=== PATIENT | male | born 1965 | race Caucasian/White ===

== ENCOUNTER 2017-11-29 18:52 | Emergency (ER) | payer OTHER, SELFPAY ==
[2017-11-29 18:56] VITALS: BP 183/88; PULSE 74; RESP 18; TEMP 36.2; O2SAT 99; BMI 23.3
--- NOTE | 2017-11-29 20:52 | ED.ANIMALBIT ---
HPI - Animal Bite <XOCHITL Chase - Last Filed: 11/29/17 22:04> General Chief Complaint: Animal Bite Stated Complaint: NEEDS STITCHES Time Seen by Provider: 11/29/17 20:52 Source: patient Mode of arrival: ambulatory Limitations: no limitations History of Present Illness HPI narrative: [age] year old male history of CVA and is an everyday smoker here for complaint of laceration to his left inner thigh after his dog bit him in his thigh earlier today. He states that the images patient's on the dog are up-to-date. He does not know when his last tetanus was. He is ambulatory to the emergency room. He denies any other injuries or concerns. complaint: animal bite Related Data Previous Rx's Medication Instructions Recorded amoxicillin-pot clavulanate 1 tab PO BID #14 tab 11/29/17 Allergies Allergy/AdvReac Type Severity Reaction Status Date / Time INGREDIENT: NDA - NO KNOWN Allergy Unknown Uncoded 11/29/17 19:01 DRUG ALLERGIES Review of Systems <XOCHITL Chase - Last Filed: 11/29/17 22:04> Constitutional Denies chills, Denies fever(s), Denies lethargy and Denies weakness Eyes Denies change in vision, Denies eye discharge, Denies irritation and Denies loss of vision ENT Ears, Nose, Mouth, and Throat: Denies change in voice, Denies neck pain, Denies sore throat and Denies throat swelling Cardiovascular Denies chest pain, Denies irregular heart rhythm, Denies lightheadedness, Denies palpitations and Denies orthopnea Respiratory Denies wheezing Gastrointestinal Gastrointestinal: Denies abdominal pain, Denies change in bowel habits, Denies diarrhea, Denies nausea and Denies vomiting Genitourinary Denies hematuria, Denies flank pain, Denies urinary incontinence and Denies urinary urgency Musculoskeletal Denies neck pain Comments: Dog bite left inner thigh Integumentary/Breasts Denies pruritus, Denies erythema, Denies rash and Denies wounds Neurologic Denies loss of vision and Denies weakness Endocrine Denies palpitations Hematologic/Lymphatic Denies easy bruising Allergic/Immunologic Denies urticaria, Denies throat swelling and Denies wheezing Exam <XOCHITL Chase - Last Filed: 11/29/17 22:04> Initial Vital Signs Initial Vital Signs: Vital Signs Temperature 97.2 F L 11/29/17 18:56 Pulse Rate 74 11/29/17 18:56 Respiratory Rate 18 11/29/17 18:56 Blood Pressure 183/88 H 11/29/17 18:56 Pulse Oximetry 99 11/29/17 18:56 Const General: cooperative and well developed Nutritional Appearance: well nourished Orientation: alert, awake, oriented x3 and not confused [facility] Mouth: oral mucosae normal and moist mucous membranes Eyes Conjunctivae: conjunctivae normal Sclera: sclerae normal Pupils: PERRL EOM: EOM intact bilaterally Resp Effort & Inspection: normal respiratory effort, able to speak in complete sentences, no respiratory distress and no use of accessory muscles Auscultation: clear to auscultation bilaterally, no rales, no rhonchi and no wheezes Cardio Rate: regular rate Rhythm: regular rhythm Heart Sounds: no click, no gallops, no murmurs and no rubs Pulses: normal peripheral pulses Skin General: no rashes or lesions noted, No jaundice and No petechiae Neuro General: alert, oriented x3, gait normal and no focal motor deficits Speech: speech normal Extrem General: full ROM, no clubbing, cyanosis or edema, no pedal edema and no calf tenderness Other: 6 cm laceration to the medial left thigh. Bleeding is controlled deep tissues appear to be intact. No foreign bodies. Distal sensation is intact. Distal range of motion is intact. Distal pulses are intact. <Apollo Cornejo DO - Last Filed: 11/29/17 23:42> Initial Vital Signs Initial Vital Signs: Vital Signs Temperature 97.2 F L 11/29/17 18:56 Pulse Rate 74 11/29/17 18:56 Respiratory Rate 18 11/29/17 18:56 Blood Pressure 183/88 H 11/29/17 18:56 Pulse Oximetry 99 11/29/17 18:56 Procedures <XOCHITL Chase - Last Filed: 11/29/17 22:04> Laceration Repair Laceration 1: Site: lower extremity Side (If applicable): left Size (cm): 6 Description: linear Depth: simple, single layer Local Anesthetic: lidocaine 1% Amount of anesthesia used (mL): 5 Pre-repair: wound explored, irrigated extensively and deep structures intact Skin layer closed with: nylon Size (cm): 4-0 Number of sutures: 9 Technique: simple, interrupted Course <XOCHITL Chase - Last Filed: 11/29/17 22:04> Orders Ordered: Discontinued Medications Amoxicillin/Clavulanate Potassium (Augmentin 875-125 Mg) 1 tab PO NOW ONE Stop: 11/29/17 22:03 Last Admin: 11/29/17 22:13 Dose: 1 tab Diphtheria/Tetanus/Acell Pertussis (Adacel) 0.5 ml IM .ONCE ONE Stop: 11/29/17 22:21 Last Admin: 11/29/17 22:30 Dose: 0.5 ml Vital Signs - 8 hr 11/29/17 18:56 11/29/17 22:09 Temperature 97.2 F L Pulse Rate 74 71 Respiratory Rate 18 17 Blood Pressure 183/88 H Blood Pressure [Left Arm] 153/78 H Pulse Oximetry 99 96 <Apollo Cornejo DO - Last Filed: 11/29/17 23:42> Orders Ordered: Discontinued Medications Amoxicillin/Clavulanate Potassium (Augmentin 875-125 Mg) 1 tab PO NOW ONE Stop: 11/29/17 22:03 Last Admin: 11/29/17 22:13 Dose: 1 tab Diphtheria/Tetanus/Acell Pertussis (Adacel) 0.5 ml IM .ONCE ONE Stop: 11/29/17 22:21 Last Admin: 11/29/17 22:30 Dose: 0.5 ml Vital Signs - 8 hr 11/29/17 18:56 11/29/17 22:09 Temperature 97.2 F L Pulse Rate 74 71 Respiratory Rate 18 17 Blood Pressure 183/88 H Blood Pressure [Left Arm] 153/78 H Pulse Oximetry 99 96 MDM - Animal Bite <XOCHITL Chase - Last Filed: 11/29/17 22:04> MDM Narrative Medical decision making narrative: Laceration to left inner thigh was closed with 9 4-0 nylon simple interrupted sutures. Good wound closure was obtained. Wound dressed with bacitracin and dressing. He is placed on prophylactic Augmentin. [id number] Tylenol or Motrin as needed for any discomfort. Sutures to be removed in 10 days. Tetanus was updated in the emergency room. For any worsening symptoms return emergency room. Discharge Plan Departure Patient Disposition: Home Clinical Impression: Dog bite Discharge Date/Time: 11/29/17 22:40 Interventions: ED Discharge Assessment Last Done: 11/29/17 22:37 Instructions: DI for Dog Bite Activity Restrictions/Additional Instructions: Dog bite sites laceration to left inner thigh was closed with 9 sutures. Sutures need to be removed in 10 days. UR placed on antibiotic prevent infection called Augmentin use as directed. Use [id number] Tylenol or Motrin as needed for any discomfort. Follow up with her primary care provider. Keep wound area clean and dry and dressing intact for 24 hr. After this timeframe you may remove the dressing. After 24 hr you may shower briefly dry wound right after shower redressed with bacitracin dressing. Dress wound daily with bacitracin and dressing until he wound heals.. For any worsening symptoms return to the emergency room. Prescriptions: New amoxicillin-pot clavulanate 875-125 mg tablet 1 tab PO BID Qty: 14 RF: 0 Referrals: [facility] [Provider Group] <Apollo Cornejo DO - Last Filed: 11/29/17 23:42> Cosign ED Attending Ghazala Attestation: I was available for consultation during this patient's emergency department encounter
[2017-11-29 22:09] VITALS: BP 153/78; PULSE 71; RESP 17; O2SAT 96
[2017-11-29] MEDS: AMOXICILLIN/CLAV 875/125 MG 1 TAB PO (22:13)
[2017-11-29] MEDS: TET,DIPH,PERTUSS(ACELL),VAC/PF 0.5 ML SYRINGE IM (22:30)
== END 2017-11-29 22:40 | disposition home or self-care (01) ==
PROVIDERS: Emergency Provider Nurse Practitioner Family
DX: S71.152A Open bite, left thigh, initial encounter (principal); W54.0XXA Bitten by dog, initial encounter
CPT/HCPCS: 12002; 90471; 99283; 90715

== ENCOUNTER 2018-12-29 10:13 | Emergency (ER) | payer OTHER, SELFPAY ==
[2018-12-29] VITALS (10 sets, daily range): BP systolic 142–171; BP diastolic 72–92; PULSE 65–78; RESP 15–19; TEMP 37.5; O2SAT 96–100
--- NOTE | 2018-12-29 | DI.CT.S_ITS ---
PROCEDURE: CT HEAD/BRAIN WO CON INDICATIONS: CODE STROKE TECHNIQUE: Noncontrast 4.5 mm thick angled axial sections acquired from the foramen magnum to the vertex, with coronal and sagittal reformats. For radiation dose reduction, the following was used: automated exposure control, adjustment of mA and/or kV according to patient size. COMPARISON: MRI brain 04/16/2016, head CT 03/01/2004. FINDINGS: Image quality: Excellent. CSF spaces: Basal cisterns are patent. No extra-axial fluid collections. Ventricles are normal in size and shape. Brain: Large area of encephalomalacia involving the right frontoparietal lobes which overall appears similar to the MRI from March 2016. This infarct was present in 2004. No new area of hypodensity and a vascular distribution to suggest acute infarction. No midline shift. No intracranial masses or hemorrhage. Mild periventricular hypodensity consistent with chronic microvascular ischemic change. Intracranial atherosclerotic calcifications in the distal ICA and right vertebral artery. Skull and face: Calvarium and visualized facial bones are intact, without suspicious lesions. Sinuses: Moderate chronic mucosal thickening in the right maxillary sinus, (3/4). Paranasal sinuses and mastoid air cells are otherwise clear. IMPRESSION: 1. No acute intracranial abnormality demonstrated. 2. Large area of encephalomalacia the right frontoparietal lobes due to remote infarct. 3. Chronic microvascular ischemic change. Comment: Findings were discussed with Heather Hare at the time of dictation. Dictated by: Zhen Coppola M.D. on 12/29/2018 at 10:33 Approved by: Zhen Coppola M.D. on 12/29/2018 at 10:41
--- NOTE | 2018-12-29 11:16 | ED.NEUROSD ---
HPI - Neuro Symptoms/Deficit General Chief Complaint: Neuro Symptoms/Deficit Stated Complaint: TIA Time Seen by Provider: 12/29/18 10:29 Source: patient and family Mode of arrival: Ambulatory Limitations: no limitations History of Present Illness HPI Narrative: Patient comes emergency department complaining of stroke-like symptoms today. He states he was out feeding his chickens around 830 this morning, when he began to have trouble getting his words out. Patient states he felt lightheaded around the same time. Patient's states that the patient also appeared to have a right facial droop. The patient states the symptoms lasted at maximum for several minutes and then began to get better. The patient's family states they still do not think he is completely back to his normal self. Patient states he does not feel as though he has any deficits at this time. He has a history of a large CVA in 2002 and carotid artery stenting in 2003. He was seen at [facility] for this. Patient states that he has had couple of ?mini strokes? since, but has not had a carotid ultrasound or echocardiogram done since his initial stroke. Patient does continue to smoke cigarettes. He does not currently take aspirin or any other anti-platelet or anticoagulant agent. Patient denies being ill with anything recently. He states he woke up feeling just fine this morning. No other complaints at this time. On Anticoagulants: No Related Data Home Medications Medication Instructions Recorded Confirmed atorvastatin 20 mg PO DAILY 12/29/18 12/29/18 citalopram [Celexa] 20 mg PO DAILY 12/29/18 12/29/18 hydrochlorothiazide 25 mg PO DAILY 12/29/18 12/29/18 lamotrigine 200 mg PO BID 12/29/18 12/29/18 Allergies Allergy/AdvReac Type Severity Reaction Status Date / Time INGREDIENT: NDA - NO KNOWN Allergy Unknown Uncoded 11/29/17 19:01 DRUG ALLERGIES Review of Systems Constitutional Constitutional: Denies chills, Denies fatigue, Denies fever(s), Denies frequent falls, Denies lethargy and Reports weakness (Right face this morning) Eyes Eyes: Denies change in vision, Denies eye discharge, Denies irritation and Denies loss of vision ENT Ears, Nose, Mouth, and Throat: Denies change in voice, Denies dizziness, Denies neck pain, Denies sore throat and Denies throat swelling Cardiovascular Cardiovascular: Denies chest pain, Denies irregular heart rhythm, Denies lightheadedness, Denies palpitations, Denies dyspnea, Denies dyspnea on exertion and Denies orthopnea Respiratory Respiratory: Denies cough, Denies dyspnea, Denies dyspnea on exertion and Denies wheezing Gastrointestinal Gastrointestinal: Denies abdominal pain, Denies change in bowel habits, Denies diarrhea, Denies nausea and Denies vomiting Genitourinary Genitourinary: Denies hematuria, Denies flank pain, Denies urinary incontinence and Denies urinary urgency Musculoskeletal Musculoskeletal: Denies back pain, Denies muscle weakness, Denies neck pain, Reports numbness (Chronic, left-sided) and Denies tingling Integumentary/Breasts Skin/Breast: Denies pruritus, Denies erythema, Denies rash and Denies wounds Neurologic Neurologic: Denies behavioral changes, Denies confusion, Denies dizziness, Denies frequent falls, Denies loss of vision, Reports numbness (Chronic, left-sided), Denies tingling and Reports weakness (Right face this morning) Comments: Aphasia Psychiatric Psychiatric: Denies anxiety, Denies behavioral changes, Denies confusion, Denies depression, Denies homicidal ideation and Denies suicidal ideation Endocrine Endocrine: Denies fatigue, Denies flushing and Denies palpitations Hematologic/Lymphatic Hematologic/Lymphatic: Denies easy bruising Allergic/Immunologic Allergic/Immunologic: Denies urticaria, Denies throat swelling and Denies wheezing Patient History Medical History HTN (hypertension) (Acute) Hyperlipidemia (Acute) Social History Smoking Status: Current every day smoker alcohol intake frequency: 3 or more drinks per day Alcohol type: beer and hard liquor Substance Use Type: does not use Exam Initial Vital Signs Initial Vital Signs: Vital Signs Temperature 99.5 F 12/29/18 10:25 Pulse Rate 73 12/29/18 10:25 Respiratory Rate 18 12/29/18 10:25 Blood Pressure 161/81 H 12/29/18 10:25 Pulse Oximetry 100 12/29/18 10:25 Const General: cooperative and well developed Nutritional Appearance: well nourished Orientation: alert, awake, oriented x3 and not confused HENHI Head: normocephalic and atraumatic Ears: external ears normal Nose: external nose normal and No nasal discharge Face and sinus: face symmetric and No dry mucous membranes Mouth: oral mucosae normal and moist mucous membranes Teeth and gingiva: dentition normal Eyes General: appearance normal, both eyes and all related structures Eyelids: eyelids normal Conjunctivae: conjunctivae normal Sclera: sclerae normal Pupils: PERRL EOM: EOM intact bilaterally Neck Neck: normal visual inspection, trachea midline, No lymphadenopathy, No midline deformity and No JVD Lymphatic: No lymphedema Chest Chest: normal inspection of the chest Resp Effort & Inspection: normal respiratory effort, able to speak in complete sentences, no respiratory distress and no use of accessory muscles Auscultation: clear to auscultation bilaterally, no rales, no rhonchi and no wheezes Cardio Rate: regular rate Rhythm: regular rhythm Heart Sounds: no click, no gallops, no murmurs and no rubs Pulses: normal peripheral pulses GI Inspection: non-distended Palpation: soft, no hepatosplenomegaly, No guarding, No pulsatile mass and No tender Auscultation: normal bowel sounds Back/Spine/Pelvis Back: No CVA tenderness Cervical Spine: cervical ROM normal and No pain with cervical ROM Thoracic/Lumbar Spine: thoracic and lumbar spine normal to inspection Skin General: no rashes or lesions noted, No jaundice and No petechiae Neuro General: alert, awake, oriented x3 and no focal motor deficits Cranial Nerves: CN's II-XI intact bilaterally Cognition: normal cognition Speech: speech normal Motor: muscle tone normal throughout and strength 5/5 throughout Other: Patient has an NIH stroke scale total score of 2 for his chronic left-sided numbness which is unchanged. Remainder stroke scale is negative. Extrem General: full ROM, no clubbing, cyanosis or edema, no pedal edema and no calf tenderness Psych Appearance: well kempt Mental Status: mental status grossly normal Attitude: cooperative Thought Content: normal and suicidality Judgment: judgment good Course Course Course Narrative: Patient was worked up as a code stroke upon arrival with a CT scan of the head, which was found to unremarkable for new findings. Laboratory studies were also obtained, and unremarkable, as well. I did feel, given the patient's significant risk factors for cardiovascular disease, that he should have a carotid Doppler and echocardiogram performed in the emergency department. Both were ordered, and that carotid Doppler did show a pedunculated thrombus within the left internal carotid artery that was moving with the blood pulsations, but otherwise, was occlusive. I did speak with Dr. Fallon of Neurology at [facility], and he did feel the patient should be transferred to their care. He recommended heparin drip and requested a CTA of the head and neck. CTA did not demonstrate significant further information. Patient was started on the heparin drip. I discussed with the patient and his family the findings and the need for transfer, and they were agreeable. I spoke with Dr. Wallace, the hospitalist at [facility] and she did accept the patient transfer. Orders Ordered: Discontinued Medications Aspirin (Aspirin Chew) 324 mg PO NOW ONE Stop: 12/29/18 11:32 Last Admin: 12/29/18 11:43 Dose: 324 mg Documented by: OLIVEIR Heparin Sodium (Porcine) (Heparin) 5,000 unit IV NOW ONE Stop: 12/29/18 13:25 Last Admin: 12/29/18 13:52 Dose: 5,000 unit Documented by: OLIVIER Heparin Sodium/Dextrose (Heparin Drip) 25,000 unit in 500 mls @ 14.496 mls/hr IV CONT IVAN; Protocol Last Admin: 12/29/18 13:55 Dose: 12 units/kg/hr, 14.496 mls/hr Documented by: OLIVIER Lorazepam (Ativan) 1 mg IV NOW ONE Stop: 12/29/18 13:47 Last Admin: 12/29/18 13:55 Dose: 1 mg Documented by: OLIVIER Lorazepam (Ativan) 1 mg IV NOW ONE Stop: 12/29/18 14:17 Last Admin: 12/29/18 14:22 Dose: 1 mg Documented by: LAURAANCE Vital Signs Vital signs: Vital Signs - 8 hr 12/29/18 10:25 12/29/18 10:39 Temperature 99.5 F Pulse Rate 73 70 Respiratory Rate 18 18 Blood Pressure 161/81 H Blood Pressure [Left Arm] 148/80 H Pulse Oximetry 100 100 MDM - Neuro Symptoms/Deficit Medical Records Attestation: I reviewed the patient's medical records. Lab Data Attestation: I reviewed the patient's lab results. Result diagrams: 12/29/18 10:30 12/29/18 10:30 Labs: Lab Results 12/29/18 12/29/18 12/29/18 Range/Units 10:30 10:30 10:30 WBC 8.4 (4.5-11.0) X10^3/uL RBC 4.33 L (4.5-5.9) X10^6/uL Hgb 15.0 (13.5-17.5) g/dL Hct 43.1 (41-53) % MCV 99.7 (80-100) fL MCH 34.7 H (26-34) PG MCHC 34.8 (30-36) % RDW 14.1 (11.6-14.8) % Plt Count 366 (150-400) X10^3/uL Neut % (Auto) 78.7 H (50-75) % Lymph % (Auto) 12.3 L (25-40) % Canadian % (Auto) 6.2 (3-14) % Eos % (Auto) 2.0 (2-4) % Baso % (Auto) 0.8 (0-2) % Neut # (Auto) 6600 (3689-3515) /uL Lymph # (Auto) 1000 L (0647-9220) /uL Canadian # (Auto) 500 (0-900) /uL Eos # (Auto) 200 (0-450) /uL Baso # (Auto) 100 (0-100) /uL PT 11.3 (10.1-12.7) SECONDS INR 1.0 (0.9-1.3) Sodium 134 L (137-145) mmol/L Potassium 4.0 (3.4-5.1) mmol/L Chloride 94 L (98-107) mmol/L Carbon Dioxide 31 (22-32) mmol/L BUN 10 (9-20) mg/dL Creatinine 0.80 (0.66-1.25) mg/dL Estimated GFR > 60.0 (>60) mL/min BUN/Creatinine Ratio 12.5 (6-22) Glucose 123 H (70-100) mg/dL Calcium 9.8 (8.4-10.2) mg/dL Total Bilirubin 0.5 (0.2-1.3) mg/dL AST 50 (17-59) IU/L ALT 25 (<50) IU/L Alkaline Phosphatase 78 (38-126) U/L Total Creatine Kinase 69 (55-170) U/L CK-MB (CK-2) TNP CK-MB (CK-2) Rel Index TNP Troponin I < 0.012 (0.01-0.034) ng/mL Total Protein 7.3 (6.3-8.2) g/dL Albumin 4.7 (3.5-5.0) g/dL Globulin 2.6 (1.7-4.1) g/dL Albumin/Globulin Ratio 1.8 (1.0-2.8) Point of Care Testing Glucose POC [address] scan - head: Radiologist's impression: PROCEDURE: CT HEAD/BRAIN WO CON INDICATIONS: CODE STROKE TECHNIQUE: Noncontrast 4.5 mm thick angled axial sections acquired from the foramen magnum to the vertex, with coronal and sagittal reformats. For radiation dose reduction, the following was used: automated exposure control, adjustment of mA and/or kV according to patient size. COMPARISON: MRI brain 04/16/2016, head CT 03/01/2004. FINDINGS: Image quality: Excellent. CSF spaces: Basal cisterns are patent. No extra-axial fluid collections. Ventricles are normal in size and shape. Brain: Large area of encephalomalacia involving the right frontoparietal lobes which overall appears similar to the MRI from March 2016. This infarct was present in 2004. No new area of hypodensity and a vascular distribution to suggest acute infarction. No midline shift. No intracranial masses or hemorrhage. Mild periventricular hypodensity consistent with chronic microvascular ischemic change. Intracranial atherosclerotic calcifications in the distal ICA and right vertebral artery. Skull and face: Calvarium and visualized facial bones are intact, without suspicious lesions. Sinuses: Moderate chronic mucosal thickening in the right maxillary sinus, (3/4). Paranasal sinuses and mastoid air cells are otherwise clear. IMPRESSION: 1. No acute intracranial abnormality demonstrated. 2. Large area of encephalomalacia the right frontoparietal lobes due to remote infarct. 3. Chronic microvascular ischemic change. Comment: Findings were discussed with Heather Hare at the time of dictation. Dictated by: Zhen Coppola M.D. on 12/29/2018 at 10:33 Approved by: Zhen Coppola M.D. on 12/29/2018 at 10:41 Carotid Doppler ultrasound: Radiologist's impression: [address] [address] Ultrasound Report Signed Patient: Leila Farmer#: [id number] : 1965Acct:[id number] Age/Sex: 53 / MDate of Service: 12/29/18 Loc: ED Accession Number: [id number] Procedure: US carotid doppler BI Ordering Provider: Sandra Hare MD PROCEDURE: US CAROTID DOPPLER BI INDICATIONS: STROKE SYMPTOMS TECHNIQUE: Color and pulse Doppler interrogation was performed of both carotid systems, with image documentation and velocity measurements. COMPARISON: [facility], CT, CT HEAD/BRAIN WO CON, 12/29/2018, 10:18. FINDINGS: Stenosis calculations are based on SRU (Society of Radiologists in Ultrasound) criteria. Right side: Brachial blood pressure: Not measured Common carotid artery peak systolic velocity: 74 cm/sec. Internal carotid artery peak systolic velocity: 163 cm/sec. Internal carotid artery end diastolic velocity: 46 cm/sec. External carotid artery peak systolic velocity: 279 cm/sec. ICA/CCA peak systolic ratio: 2.2. Mancuso scale imaging description: There is echogenic plaque present in the carotid bulb/proximal right internal carotid region which results in a stenosis of between 50 and 69% Percent internal carotid artery stenosis: Moderate, 50-69% stenosis. Vertebral artery: Flow direction is antegrade. Left side: Brachial blood pressure: 143/119 mm Hg. Common carotid artery peak systolic velocity: 108 cm/sec. Internal carotid artery peak systolic velocity: Zero Internal carotid artery end diastolic velocity: Zero External carotid artery peak systolic velocity: 205 cm/sec. ICA/CCA peak systolic ratio: Zero. Mancuso scale imaging description: There is acute thrombosis of the proximal internal carotid artery with mobile clot present within it. There is no flow distal to the proximal clot. Percent internal carotid artery stenosis: 100%. Vertebral artery: Flow direction is antegrade. IMPRESSION: 1. 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 2. 50-69% stenosis of the proximal right internal carotid artery. Comment: Findings were discussed with Dr. Hare on 12/29/18 1228 hrs. Additional comment: Of note, the patient has a large (contralateral) chronic right MCA distribution infarct. Dictated by: Anup Child M.D. on 12/29/2018 at 12:27 Approved by: Anup Child M.D. on 12/29/2018 at 12:47 Echo: Radiologist's impression: [facility]---------+ [facility] +---------+ : : [address] : : : : [place], [place] : : : : [id number] : : : : Phone: [phone] Echocardiogram Report + + :Name: LEILA FARMER Study Date: 12/29/2018 Height: 66 in : :[facility] Exam Location: IS Weight: 133 lb : : Gender: Male BSA: 1.7 m2 : :: 1965 Age: 53 yrs BP: 150/72 mmHg: :Reason For Study: Stroke : :Ordering Physician: Brandon : :Darnellist Performed By: Vandana Page : :Referring: SANDRA HARE : + + Interpretation Summary The ejection fraction is estimated to be 60-65%. The left atrium is severely dilated. Injection of contrast documented no interatrial shunt. There is no significant valvular heart disease. Procedure: A two-dimensional transthoracic echocardiogram with color flow and Doppler was performed. The study quality was technically adequate. There is no prior echocardiogram noted for this patient. A saline contrast injection was performed to assess for cardiac shunting. The patient was in normal sinus rhythm during the exam. Left Ventricle: The left ventricle is normal in size, wall thickness, and systolic function without any focal wall motion abnormalities. The ejection fraction is estimated to be 60-65%. Left ventricular wall motion is normal. Right Ventricle: The right ventricle is normal in size and function. Atria: The left atrium is severely dilated. The right atrium is mildly dilated. Injection of contrast documented no interatrial shunt. There is no Doppler evidence for an interatrial shunt. Mitral Valve: The mitral valve is normal in structure and function. There is mild mitral annular calcification. There is trace mitral regurgitation. Aortic Valve: The aortic valve is not well visualized. The aortic valve opens well. No aortic regurgitation is present. Tricuspid Valve: The tricuspid valve is normal in structure and function. There is a trace or physiologic amount of tricuspid regurgitation. Pulmonary artery pressures cannot be estimated because of the lack of a measurable TR jet velocity. Pulmonic Valve: The pulmonic valve is not well visualized. There is trace pulmonic regurgitation. Great Vessels: The aortic root is normal size. The ascending aorta is normal in size. The pulmonary is not well visualized. The IVC is of normal diameter and collapses greater than 50% with a sniff. This suggests a low right atrial pressure of 3 mm Hg. Pericardium/ Pleura There is no pericardial effusion. There is no pleural effusion. MMode/2D Measurements & Calculations LVIDd: 4.9 cm LVOT diam: 2.0 cm LVIDs: 2.9 cm Ao root diam: 2.9 cm FS: 41.9 % asc Aorta Diam: 3.1 cm EPSS: 0.23 cm IVSd: 0.83 cm LVPWd: 0.84 cm LV wilcox. diameter/BSA (cm/m^2): 2.9 LV sys. diameter/BSA (cm/m^2): 1.7 LA A2 area: 23.0 cm2 RA long axis: 5.4 cm LA A4 area: 23.6 cm2 RA area: 19.4 cm2 LA length (vol): 5.7 cm RA vol: 59.0 ml LA vol: 80.8 ml RA : 35.1 ml/m2 LA vol index: 48.1 ml/m2 IVC diam: 1.9 cm RVD1 (basal): 3.8 cm RVD2 (mid): 3.0 cm Doppler Measurements & Calculations Ao V2 max: 152.2 cm/sec LVOT Max Michael: 89.2 cm/sec Ao V2 mean: 96.4 cm/sec LV V1 max P.2 mmHg Ao max P.3 mmHg LV V1 VTI: 18.7 cm Ao mean P.3 mmHg LESLIE(I,D): 2.0 cm2 Ao V2 VTI: 29.4 cm LESLIE(V,D): 1.8 cm2 sev ratio: 0.63 LESLIE indexed to BSA (cm^2/m^2): 1.2 MV E max michael: 105.7 cm/sec PA V2 max: 90.3 cm/sec MV A max michael: 94.6 cm/sec PA V2 mean: 59.0 cm/sec MV E/A: 1.1 PA mean P.6 mmHg Med Peak E' Michael: 10.6 cm/sec PA Accel Time: 0.13 sec E/E' med: 9.9 Lat Peak E' Michael: 12.9 cm/sec E/E' lat: 8.2 E/e' average: 9.1 MV dec time: 0.24 sec MV P1/2t: 68.8 msec MV P1/2t max michael: 106.8 cm/sec SV(LVOT): 58.4 ml MVA(P1/2t): 3.2 cm2 Reading Physician:02:01 PM CTA head and neck: Radiologist's impression: PROCEDURE: CT ANGIO HEAD AND NECK INDICATIONS: possible new stroke TECHNIQUE: Pre-contrast 4.5 mm thick sections acquired from the foramen magnum to the vertex. After the administration of intravenous contrast, 1 mm thick sections acquired from the aortic arch through the [place] of [place]. Post-contrast 4.5 mm thick sections then re-acquired from the foramen magnum to the vertex. 3-dimensional [id number]-[id number]-oezaxvjedp (MIP) and/or volume rendering reformats were acquired of the central intracranial vasculature and neck separately. COMPARISON: None. FINDINGS: Image quality: Excellent. BRAIN: CSF spaces: There is mild exvacuo dilatation of the right lateral ventricle. Ventricles are midline. Basal cisterns are patent. No extra-axial fluid collections. Brain: No midline shift. No intracranial bleeds or masses. The large chronic right MCA distribution stroke with large right MCA distribution encephalomalacia involving the right frontal region and parietal region, sparing Skull and face: Calvarium and facial bones appear intact, without suspicious lesions. Orbits appear normal. Sinuses: Sinuses and mastoids are clear. HEAD CT ANGIOGRAPHY: Anterior circulation: Intracranial internal carotid arteries are normal in size and flow the left internal carotid artery is occluded below its petrous portion, with retrograde flow into the petrous portion. The anterior communicating artery is patent. The bilateral anterior cerebral arteries and middle cerebral arteries are patent. No focal filling defect or occlusion. The flow within the middle cerebral arteries is normal and symmetric. The anterior communicating artery is seen. No aneurysms are seen. Posterior circulation: The left vertebral artery is diminutive and ends in PICA. The right vertebral artery and basilar artery are of normal caliber. The posterior cerebral arteries are unremarkable. No filling defects or aneurysms. NECK CT ANGIOGRAPHY: Carotid system: The great vessels demonstrate a conventional anatomy as they arise from the aortic arch. There is occlusion of the left internal carotid artery at its origin. The left internal carotid artery is nonopacified from the origin to the petrous segment. It is patent above the skull base. There is extensive calcification of the carotid bulb region on the right with a stenosis of approximately 70% at the bulb/proximal internal carotid artery. Posterior circulation: The left vertebral artery is diffusely diminutive. The right vertebral artery is normal caliber. The left vertebral artery ends in PICA.. Soft tissues: Visualized neck soft tissues demonstrate no suspicious abnormalities. Bones: No suspicious bony lesions. Visualized cervical spine appears normally aligned. IMPRESSION: 1. No acute stroke, hemorrhage, or mass noted. 2. Large chronic right MCA distribution infarct. 3. 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 4. Severe calcified stenosis of the right carotid bulb/proximal internal carotid artery measuring approximately 70%. 5. Diminutive left vertebral artery ending in PICA. 6. No intracranial embolus identified. Comment: Findings were discussed with Dr. Hare on 12/29/18 at 1403 hrs. Any quantitative measurements of stenosis were performed using NASCET criteria. Dictated by: Anup Child M.D. on 12/29/2018 at 13:47 Approved by: Anup Child M.D. on 12/29/2018 at 14:13 ECG Data Attestation: I personally reviewed and interpreted this ECG as follows: (See below) Interpretation: Twelve lead EKG performed December 29, 2018 at 10:30 a.m., follows: Irregular ventricular rhythm with a rate of 70 beats per minute GA interval 164 millisecond QRS duration 90 millisecond QTC interval [address] T wave changes No ectopy Interpretation: Normal sinus rhythm; voltage criteria for LVH; no signs of acute ischemia; abnormal EKG as interpreted by 80 mg. Discharge Plan Departure Patient Disposition: [facility] Clinical Impression: Carotid art occ w/o infarc Discharge Date/Time: 12/29/18 15:09 Prescriptions: No Action atorvastatin 20 mg tablet 20 mg PO DAILY RF: 0 lamotrigine 200 mg Tablet 200 mg PO BID RF: 0 citalopram [Celexa] 20 mg tablet 20 mg PO DAILY RF: 0 hydrochlorothiazide 25 mg tablet 25 mg PO DAILY RF: 0
--- NOTE | 2018-12-29 11:25 | PC.NURSE ---
patients symptoms fully resolved and NIHSS = 0 Patient back to baseline Patient has old deficit of parasthesis to left arm and left leg from an old stroke in 2002. Has full strength though in both extremities. Drops things more due to the numbness.
--- NOTE | 2018-12-29 11:28 | DI.US.S_ITS ---
PROCEDURE: US CAROTID DOPPLER BI INDICATIONS: STROKE SYMPTOMS TECHNIQUE: Color and pulse Doppler interrogation was performed of both carotid systems, with image documentation and velocity measurements. COMPARISON: [facility], CT, CT HEAD/BRAIN WO CON, 12/29/2018, 10:18. FINDINGS: Stenosis calculations are based on SRU (Society of Radiologists in Ultrasound) criteria. Right side: Brachial blood pressure: Not measured Common carotid artery peak systolic velocity: 74 cm/sec. Internal carotid artery peak systolic velocity: 163 cm/sec. Internal carotid artery end diastolic velocity: 46 cm/sec. External carotid artery peak systolic velocity: 279 cm/sec. ICA/CCA peak systolic ratio: 2.2. Mancuso scale imaging description: There is echogenic plaque present in the carotid bulb/proximal right internal carotid region which results in a stenosis of between 50 and 69% Percent internal carotid artery stenosis: Moderate, 50-69% stenosis. Vertebral artery: Flow direction is antegrade. Left side: Brachial blood pressure: 143/119 mm Hg. Common carotid artery peak systolic velocity: 108 cm/sec. Internal carotid artery peak systolic velocity: Zero Internal carotid artery end diastolic velocity: Zero External carotid artery peak systolic velocity: 205 cm/sec. ICA/CCA peak systolic ratio: Zero. Mancuso scale imaging description: There is acute thrombosis of the proximal internal carotid artery with mobile clot present within it. There is no flow distal to the proximal clot. Percent internal carotid artery stenosis: 100%. Vertebral artery: Flow direction is antegrade. IMPRESSION: 1. 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 2. 50-69% stenosis of the proximal right internal carotid artery. Comment: Findings were discussed with Dr. Hare on 12/29/18 1228 hrs. Additional comment: Of note, the patient has a large (contralateral) chronic right MCA distribution infarct. Dictated by: Anup Child M.D. on 12/29/2018 at 12:27 Approved by: Anup Child M.D. on 12/29/2018 at 12:47
--- NOTE | 2018-12-29 11:31 | DI.ECHO.S_ITS ---
[facility]---------+ [facility] +---------+ : : [address] : : [place], [place] : : : : [id number] : : : : Phone: [phone] Echocardiogram Report + + :Name: LEILA FARMER Study Date: 12/29/2018 Height: 66 in : :[facility] Exam Location: IS Weight: 133 lb : : Gender: Male BSA: 1.7 m2 : :: 1965 Age: 53 yrs BP: 150/72 mmHg: :Reason For Study: Stroke : :Ordering Physician: Brandon : :Hospitalist Performed By: Vandana Page : :Referring: JIMY ROSS : + + Interpretation Summary The ejection fraction is estimated to be 60-65%. The left atrium is severely dilated. Injection of contrast documented no interatrial shunt. There is no significant valvular heart disease. Procedure: A two-dimensional transthoracic echocardiogram with color flow and Doppler was performed. The study quality was technically adequate. There is no prior echocardiogram noted for this patient. A saline contrast injection was performed to assess for cardiac shunting. The patient was in normal sinus rhythm during the exam. Left Ventricle: The left ventricle is normal in size, wall thickness, and systolic function without any focal wall motion abnormalities. The ejection fraction is estimated to be 60-65%. Left ventricular wall motion is normal. Right Ventricle: The right ventricle is normal in size and function. Atria: The left atrium is severely dilated. The right atrium is mildly dilated. Injection of contrast documented no interatrial shunt. There is no Doppler evidence for an interatrial shunt. Mitral Valve: The mitral valve is normal in structure and function. There is mild mitral annular calcification. There is trace mitral regurgitation. Aortic Valve: The aortic valve is not well visualized. The aortic valve opens well. No aortic regurgitation is present. Tricuspid Valve: The tricuspid valve is normal in structure and function. There is a trace or physiologic amount of tricuspid regurgitation. Pulmonary artery pressures cannot be estimated because of the lack of a measurable TR jet velocity. Pulmonic Valve: The pulmonic valve is not well visualized. There is trace pulmonic regurgitation. Great Vessels: The aortic root is normal size. The ascending aorta is normal in size. The pulmonary is not well visualized. The IVC is of normal diameter and collapses greater than 50% with a sniff. This suggests a low right atrial pressure of 3 mm Hg. Pericardium/ Pleura There is no pericardial effusion. There is no pleural effusion. MMode/2D Measurements & Calculations LVIDd: 4.9 cm LVOT diam: 2.0 cm LVIDs: 2.9 cm Ao root diam: 2.9 cm FS: 41.9 % asc Aorta Diam: 3.1 cm EPSS: 0.23 cm IVSd: 0.83 cm LVPWd: 0.84 cm LV wilcox. diameter/BSA (cm/m^2): 2.9 LV sys. diameter/BSA (cm/m^2): 1.7 LA A2 area: 23.0 cm2 RA long axis: 5.4 cm LA A4 area: 23.6 cm2 RA area: 19.4 cm2 LA length (vol): 5.7 cm RA vol: 59.0 ml LA vol: 80.8 ml RA : 35.1 ml/m2 LA vol index: 48.1 ml/m2 IVC diam: 1.9 cm RVD1 (basal): 3.8 cm RVD2 (mid): 3.0 cm Doppler Measurements & Calculations Ao V2 max: 152.2 cm/sec LVOT Max Zoraida: 89.2 cm/sec Ao V2 mean: 96.4 cm/sec LV V1 max P.2 mmHg Ao max P.3 mmHg LV V1 VTI: 18.7 cm Ao mean P.3 mmHg LESLIE(I,D): 2.0 cm2 Ao V2 VTI: 29.4 cm LESLIE(V,D): 1.8 cm2 sev ratio: 0.63 LESLIE indexed to BSA (cm^2/m^2): 1.2 MV E max zoraida: 105.7 cm/sec PA V2 max: 90.3 cm/sec MV A max zoraida: 94.6 cm/sec PA V2 mean: 59.0 cm/sec MV E/A: 1.1 PA mean P.6 mmHg Med Peak E' Zoraida: 10.6 cm/sec PA Accel Time: 0.13 sec E/E' med: 9.9 Lat Peak E' Zoraida: 12.9 cm/sec E/E' lat: 8.2 E/e' average: 9.1 MV dec time: 0.24 sec MV P1/2t: 68.8 msec MV P1/2t max zoraida: 106.8 cm/sec SV(LVOT): 58.4 ml MVA(P1/2t): 3.2 cm2 Reading Physician:02:01 PM
[2018-12-29] MEDS: ASPIRIN 81 MG CHEW TAB 324 MG PO (11:43)
[2018-12-29 12:52] LABS: Prothrombin Time 11.3 SECONDS (10.1-12.7)
[2018-12-29 12:53] LABS: Add Manual Diff / Slide Review NO; Basophils Absolute Auto 100 /uL (0-100); Basophils Percent Auto 0.8 % (0-2); Eosinophils Absolute Auto 200 /uL (0-450); Hematocrit 43.1 % (41-53); Lymphocytes Absolute Auto 1000 /uL (1100-4500); Lymphocytes Percent Auto 12.3 % (25-40); Mean Corpuscular HGB Conc 34.8 % (30-36); Mean Corpuscular Hemoglobin 34.7 PG (26-34); Mean Corpuscular Volume 99.7 fL (80-100); Monocytes Absolute Auto 500 /uL (0-900); Monocytes Percent Auto 6.2 % (3-14); Neutrophils Absolute Auto 6600 /uL (1500-7000); Neutrophils Percent Auto 78.7 % (50-75); Platelet Count 366 X10^3/uL (150-400); Red Blood Cell Count 4.33 X10^6/uL (4.5-5.9); Red Cell Distribution Width 14.1 % (11.6-14.8); White Blood Cell Count 8.4 X10^3/uL (4.5-11.0)
[2018-12-29 12:58] LABS: Alanine Aminotransferase 25 IU/L (<50); Albumin 4.7 g/dL (3.5-5.0); Albumin Globulin Ratio 1.8 (1.0-2.8); Alkaline Phosphatase 78 U/L (38-126); Aspartate Aminotransferase 50 IU/L (17-59); BUN Creatinine Ratio 12.5 (6-22); Bilirubin Total 0.5 mg/dL (0.2-1.3); Blood Urea Nitrogen 10 mg/dL (9-20); Calcium 9.8 mg/dL (8.4-10.2); Carbon Dioxide 31 mmol/L (22-32); Chloride 94 mmol/L (98-107); Creatine Kinase 69 U/L (55-170); Estimated Glomerular Filt Rate > 60.0 mL/min (>60); Globulin 2.6 g/dL (1.7-4.1); Glucose 123 mg/dL (70-100); HEMOLYSIS 15 (0-50); Sodium 134 mmol/L (137-145); Total Protein 7.3 g/dL (6.3-8.2)
[2018-12-29 13:10] LABS: Troponin I < 0.012 ng/mL (0.01-0.034)
--- NOTE | 2018-12-29 13:18 | DI.CT.S_ITS ---
PROCEDURE: CT ANGIO HEAD AND NECK INDICATIONS: possible new stroke TECHNIQUE: Pre-contrast 4.5 mm thick sections acquired from the foramen magnum to the vertex. After the administration of intravenous contrast, 1 mm thick sections acquired from the aortic arch through the Te-Moak of Gar[place]. Post-contrast 4.5 mm thick sections then re-acquired from the foramen magnum to the vertex. 3-dimensional nccyijz-prjapzxqt-bskkdbguih (MIP) and/or volume rendering reformats were acquired of the central intracranial vasculature and neck separately. COMPARISON: None. FINDINGS: Image quality: Excellent. BRAIN: CSF spaces: There is mild exvacuo dilatation of the right lateral ventricle. Ventricles are midline. Basal cisterns are patent. No extra-axial fluid collections. Brain: No midline shift. No intracranial bleeds or masses. The large chronic right MCA distribution stroke with large right MCA distribution encephalomalacia involving the right frontal region and parietal region, sparing Skull and face: Calvarium and facial bones appear intact, without suspicious lesions. Orbits appear normal. Sinuses: Sinuses and mastoids are clear. HEAD CT ANGIOGRAPHY: Anterior circulation: Intracranial internal carotid arteries are normal in size and flow the left internal carotid artery is occluded below its petrous portion, with retrograde flow into the petrous portion. The anterior communicating artery is patent. The bilateral anterior cerebral arteries and middle cerebral arteries are patent. No focal filling defect or occlusion. The flow within the middle cerebral arteries is normal and symmetric. The anterior communicating artery is seen. No aneurysms are seen. Posterior circulation: The left vertebral artery is diminutive and ends in PICA. The right vertebral artery and basilar artery are of normal caliber. The posterior cerebral arteries are unremarkable. No filling defects or aneurysms. NECK CT ANGIOGRAPHY: Carotid system: The great vessels demonstrate a conventional anatomy as they arise from the aortic arch. There is occlusion of the left internal carotid artery at its origin. The left internal carotid artery is nonopacified from the origin to the petrous segment. It is patent above the skull base. There is extensive calcification of the carotid bulb region on the right with a stenosis of approximately 70% at the bulb/proximal internal carotid artery. Posterior circulation: The left vertebral artery is diffusely diminutive. The right vertebral artery is normal caliber. The left vertebral artery ends in PICA.. Soft tissues: Visualized neck soft tissues demonstrate no suspicious abnormalities. Bones: No suspicious bony lesions. Visualized cervical spine appears normally aligned. IMPRESSION: 1. No acute stroke, hemorrhage, or mass noted. 2. Large chronic right MCA distribution infarct. 3. 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 4. Severe calcified stenosis of the right carotid bulb/proximal internal carotid artery measuring approximately 70%. 5. Diminutive left vertebral artery ending in PICA. 6. No intracranial embolus identified. Comment: Findings were discussed with Dr. Hare on 12/29/18 at 1403 hrs. Any quantitative measurements of stenosis were performed using NASCET criteria. Dictated by: Anup Child M.D. on 12/29/2018 at 13:47 Approved by: Anup Child M.D. on 12/29/2018 at 14:13
--- NOTE | 2018-12-29 13:28 | PC.NURSE ---
ultrasound of carotids being done for the past one hour. No change in neuro status. Visitor Services Coordinator strong bilaterally, speech clear. patient alert and oriented x4. lower extremities strong bilaterally.
[2018-12-29] MEDS: HEPARIN 5,000 UNIT/ML VIAL 5000 UNIT IV (13:52)
[2018-12-29] MEDS: HEPARIN DRIP 25,000 UNIT/500 ML IV.SOLN 14.496 UNIT IV (13:55)
[2018-12-29] MEDS: LORazepam 2 MG/ML INJ 1 MG IV ×2 (13:55→14:22)
--- NOTE | 2018-12-29 15:06 | PC.NURSE ---
report given to Neel Fineny RN
--- NOTE | 2019-04-10 19:20 | PC.NURSE ---
Late entry: Heparin drip started @ 1355, discontinued @ 1509, see transport documentation for continuation of heparin gtt during transport.
== END 2018-12-29 15:09 | disposition short-term general hospital (02) ==
PROVIDERS: Emergency Provider Emergency Medicine
DX: I65.29 Occlusion and stenosis of unspecified carotid artery (principal); E78.5 Hyperlipidemia, unspecified; I10 Essential (primary) hypertension; R79.89 Other specified abnormal findings of blood chemistry; R94.31 Abnormal electrocardiogram [ECG] [EKG]
CPT/HCPCS: 36415; 70450; 70496; 70498; 80053; 82550; 82962; 84484; 85025; 85610; 93005; 93010; 93041; 93306; 93880; 96365; 96375; 99284; 99285; 99291; J1644; J2060; Q9967

== ENCOUNTER 2019-01-26 13:52 | Emergency (ER) | payer OTHER, SELFPAY ==
[2019-01-26 14:03] VITALS: BP 146/76; PULSE 68; RESP 20; TEMP 37.2; O2SAT 96
--- NOTE | 2019-01-26 14:03 | DI.CT.S_ITS ---
PROCEDURE: CT HEAD/BRAIN WO CON INDICATIONS: fall on thinners TECHNIQUE: Noncontrast 4.5 mm thick angled axial sections acquired from the foramen magnum to the vertex, with coronal and sagittal reformats. For radiation dose reduction, the following was used: automated exposure control, adjustment of mA and/or kV according to patient size. COMPARISON: [facility], CT, CT HEAD/BRAIN WO CON, 12/29/2018, 10:18. FINDINGS: Image quality: Excellent. CSF spaces: Basal cisterns are patent. No extra-axial fluid collections. The ventricles are symmetric in size and shape. Brain: No intracranial bleeds or masses. There is cerebral volume loss for age, with resultant ventricular and sulcal prominence. There are periventricular and deep white matter chronic small vessel ischemic changes. There is intracranial internal carotid artery atherosclerosis. Skull and face: Calvarium and visualized facial bones appear intact, without suspicious lesions. Anterior scalp swelling/hematoma Sinuses: Visualized sinuses and mastoids are clear. IMPRESSION: Anterior scalp swelling/hematoma. No acute intracranial process. Redemonstration of chronic large right middle cerebral artery territorial infarct. No interval change. Dictated by: Roman Anaya M.D. on 01/26/2019 at 15:08 Approved by: Roman Anaya M.D. on 01/26/2019 at 15:10
--- NOTE | 2019-01-26 14:26 | ED_ITS ---
HPI - General Adult General Chief complaint: Trauma Stated complaint: fell hit head,bleeding on blood thinners Time Seen by Provider: 01/26/19 14:01 Source: patient Mode of arrival: Ambulatory Limitations: no limitations History of Present Illness HPI narrative: 53-year-old male arrived as a modified trauma. He is on anticoagulation for a stroke within the past 6 months. He states that he was standing on the tire of his pickup truck trying to get something out of the bed when he slipped off the tire. He states that he fell back hitting the back of his head on the ground and then came forward hitting the front of his head on another object. No loss of consciousness. Does have a cut on his forehead. Does not know when his last tetanus shot was. No other injuries reported from the event. Related Data Home Medications Medication Instructions Recorded Confirmed hydrochlorothiazide 25 mg PO DAILY 12/29/18 01/26/19 lamotrigine 200 mg PO BID 12/29/18 01/26/19 amlodipine 5 mg PO DAILY 01/26/19 01/26/19 aspirin 81 mg PO DAILY 01/26/19 01/26/19 atorvastatin 40 mg PO DAILY 01/26/19 01/26/19 citalopram 40 mg PO DAILY 01/26/19 01/26/19 nicotine 21 mg TOPICAL DAILY 01/26/19 01/26/19 ticagrelor [Brilinta] 90 mg PO [id number] 01/26/19 01/26/19 Allergies Allergy/AdvReac Type Severity Reaction Status Date / Time INGREDIENT: NDA - NO KNOWN Allergy Unknown Uncoded 11/29/17 19:01 DRUG ALLERGIES Review of Systems Constitutional Constitutional: Denies fever(s), Denies frequent falls and Denies headache(s) Eyes Eyes: Denies change in vision ENT Ears, Nose, Mouth, and Throat: Denies headache(s) Cardiovascular Cardiovascular: Denies chest pain and Denies dyspnea Respiratory Respiratory: Denies dyspnea Gastrointestinal Gastrointestinal: Denies abdominal pain Musculoskeletal Musculoskeletal: Denies myalgias and Denies arthralgias Integumentary/Breasts Skin/Breast: Denies lesions Comments: Laceration of forehead Neurologic Neurologic: Denies behavioral changes, Denies frequent falls and Denies headache(s) Psychiatric Psychiatric: Denies behavioral changes Hematologic/Lymphatic Comments: On anticoagulation Allergic/Immunologic Allergic/Immunologic: Denies urticaria Patient History Medical History HTN (hypertension) (Acute) Hyperlipidemia (Acute) Social History Smoking Status: Current every day smoker alcohol intake frequency: 3 or more drinks per day Alcohol type: beer and hard liquor Substance Use Type: does not use Exam Initial Vital Signs Initial Vital Signs: Vital Signs Temperature 98.9 F 01/26/19 14:03 Pulse Rate 68 01/26/19 14:03 Respiratory Rate 20 01/26/19 14:03 Blood Pressure 146/76 H 01/26/19 14:03 Pulse Oximetry 96 01/26/19 14:03 Const General: cooperative and comfortable Orientation: alert, awake and oriented x3 HENMT Head: laceration Resp Effort & Inspection: normal respiratory effort Auscultation: clear to auscultation bilaterally Cardio Rate: regular rate Rhythm: regular rhythm Skin Other: 3 cm laceration middle of the forehead. Oozing but no active bleeding Neuro General: alert, awake and oriented x3 Cognition: normal cognition Speech: speech normal Gait: normal gait Motor: muscle tone normal throughout Extrem General: normal to inspection and capillary refill normal Psych Appearance: grossly normal and well kempt Procedures Laceration Repair Laceration 1: Site: scalp Size (cm): 4 Description: linear Depth: simple, single layer Local Anesthetic: lidocaine 1% and with epi Amount of anesthesia used (mL): 4 Pre-repair: wound explored and deep structures intact Skin layer closed with: nylon Size (cm): 4-0 Number of sutures: 5 Technique: simple, interrupted Scores GCS Raquel coma scale eye opening: Spontaneous Raquel coma scale verbal response: Orientated Raquel coma scale motor response: Obey commands Raquel coma scale total score: 15 Nexus Score for C-Spine Focal Neurologic deficit present: No Midline spinal tenderness present: No Altered level of conciousness present: No Intoxication present: No Distracting Injury Present: No Nexus Criteria for C-spine: 0 Course Orders Ordered: ED Orders 01/26/19 14:03 CT head/brain wo con Stat 01/26/19 14:18 Complete Blood Count AUTO DIFF Stat Comprehensive Metabolic Panel Stat Partial Thromboplastin Time Stat Prothrombin Time INR Stat Discontinued Medications Bacitracin (Bacitracin) 1 applic TOP NOW ONE Stop: 12/02/19 15:41 Last Admin: 01/26/19 15:45 Dose: 1 applic Documented by: CATHERINE Diphtheria/Tetanus/Acell Pertussis (Adacel) 0.5 ml IM .ONCE ONE Stop: 01/26/19 14:50 Last Admin: 01/26/19 14:54 Dose: 0.5 ml Documented by: CATHERINE Lidocaine/Epinephrine (Xylocaine 2% W/Epi) 1 ml INJ INTRA-OP ONE Stop: 01/26/19 14:03 Last Admin: 01/26/19 15:31 Dose: 1 ml Documented by: IZZY Vital Signs Vital signs: Vital Signs - 8 hr 01/26/19 14:03 01/26/19 14:30 01/26/19 15:19 Temperature 98.9 F Pulse Rate 68 84 92 H Respiratory Rate 20 18 Blood Pressure 146/76 H Blood Pressure [Left Arm] 146/69 H 146/97 H Pulse Oximetry 96 95 98 Medical Decision Making Lab Data Lab results reviewed: Yes I reviewed the patient's lab results. Result diagrams: 01/26/19 14:18 01/26/19 14:18 Labs: Lab Results 01/26/19 01/26/19 01/26/19 Range/Units 14:18 14:18 14:18 WBC 7.3 (4.5-11.0) X10^3/uL RBC 3.80 L (4.5-5.9) X10^6/uL Hgb 13.1 L (13.5-17.5) g/dL Hct 37.5 L (41-53) % MCV 98.7 (80-100) fL MCH 34.5 H (26-34) PG MCHC 34.9 (30-36) % RDW 13.0 (11.6-14.8) % Plt Count 359 (150-400) X10^3/uL Neut % (Auto) 68.3 (50-75) % Lymph % (Auto) 17.6 L (25-40) % Powell % (Auto) 7.7 (3-14) % Eos % (Auto) 5.5 H (2-4) % Baso % (Auto) 0.9 (0-2) % Neut # (Auto) 5000 (3944-5164) /uL Lymph # (Auto) 1300 (9296-7001) /uL Powell # (Auto) 600 (0-900) /uL Eos # (Auto) 400 (0-450) /uL Baso # (Auto) 100 (0-100) /uL PT 10.9 (10.1-12.7) SECONDS INR 0.9 (0.9-1.3) APTT 31 (26.4-36.2) SECONDS Sodium 133 L (137-145) mmol/L Potassium 3.9 (3.4-5.1) mmol/L Chloride 93 L (98-107) mmol/L Carbon Dioxide 32 (22-32) mmol/L BUN 14 (9-20) mg/dL Creatinine 0.80 (0.66-1.25) mg/dL Estimated GFR > 60.0 (>60) mL/min BUN/Creatinine Ratio 17.5 (6-22) Glucose 97 (70-100) mg/dL Calcium 9.5 (8.4-10.2) mg/dL Total Bilirubin 0.4 (0.2-1.3) mg/dL AST 28 (17-59) IU/L ALT 39 (<50) IU/L Alkaline Phosphatase 83 (38-126) U/L Total Protein 7.1 (6.3-8.2) g/dL Albumin 4.5 (3.5-5.0) g/dL Globulin 2.6 (1.7-4.1) g/dL Albumin/Globulin Ratio 1.7 (1.0-2.8) Imaging Data CT scan - head: Radiologist's impression: [address] [address] [address] Scan Report Signed Patient: Pérez Dhillon#: [id number] : 1965Acct:[id number] Age/Sex: 53 / MDate of Service: 01/26/19 Loc: ED Accession Number: [id number] Procedure: CT head/brain wo con Ordering Provider: Apollo Cornejo D.O. PROCEDURE: CT HEAD/BRAIN WO CON INDICATIONS: fall on thinners TECHNIQUE: Noncontrast 4.5 mm thick angled axial sections acquired from the foramen magnum to the vertex, with coronal and sagittal reformats. For radiation dose reduction, the following was used: automated exposure control, adjustment of mA and/or kV according to patient size. COMPARISON: [facility], CT, CT HEAD/BRAIN WO CON, 12/29/2018, 10:18. FINDINGS: Image quality: Excellent. CSF spaces: Basal cisterns are patent. No extra-axial fluid collections. The ventricles are symmetric in size and shape. Brain: No intracranial bleeds or masses. There is cerebral volume loss for age, with resultant ventricular and sulcal prominence. There are periventricular and deep white matter chronic small vessel ischemic changes. There is intracranial internal carotid artery atherosclerosis. Skull and face: Calvarium and visualized facial bones appear intact, without suspicious lesions. Anterior scalp swelling/hematoma Sinuses: Visualized sinuses and mastoids are clear. IMPRESSION: Anterior scalp swelling/hematoma. No acute intracranial process. Redemonstration of chronic large right middle cerebral artery territorial infarct. No interval change. Dictated by: Roman Anaya M.D. on 01/26/2019 at 15:08 Approved by: Roman Anaya M.D. on 01/26/2019 at 15:10 [facility] Narrative Medical decision making narrative: Head CT shows no acute pathology. No skull fractures. The laceration on his forehead was closed as described above. His tetanus was updated. He was given care instructions and return precautions. No other injuries found on the exam or reported by the patient. C-spine cleared by nexus criteria. He was given return precautions and follow-up instructions. He expressed understanding and agreement with plan. Discharge Plan Departure Patient Disposition: Home Clinical Impression: Closed head injury Qualifiers: Encounter type: initial encounter Qualified Code(s): S09.90XA - Unspecified injury of head, initial encounter Laceration of scalp Qualifiers: Encounter type: initial encounter Qualified Code(s): S01.01XA - Laceration without foreign body of scalp, initial encounter Discharge Date/Time: 01/26/19 15:53 Instructions: DI for Laceration Repair -- Simple Activity Restrictions/Additional Instructions: The stitches do need to be removed in the next 7-10 days. You can contact your primary provider for this. Until that you can shower like normal. Keep it covered with a bandage as needed. Continue all of your medications as directed. Return to the emergency department for any new or worsening symptoms Prescriptions: No Action atorvastatin 40 mg tablet 40 mg PO DAILY RF: 0 citalopram 40 mg tablet 40 mg PO DAILY RF: 0 amlodipine 5 mg tablet 5 mg PO DAILY RF: 0 aspirin 81 mg tablet,delayed release (DR/EC) 81 mg PO DAILY RF: 0 nicotine 21 mg/24 hr patch 24 hour 21 mg topical DAILY RF: 0 Brilinta 90 mg tablet 90 mg PO [id number] RF: 0 lamotrigine 200 mg Tablet 200 mg PO BID RF: 0 hydrochlorothiazide 25 mg tablet 25 mg PO DAILY RF: 0
[2019-01-26 14:28] LABS: Add Manual Diff / Slide Review NO; Basophils Absolute Auto 100 /uL (0-100); Basophils Percent Auto 0.9 % (0-2); Eosinophils Absolute Auto 400 /uL (0-450); Eosinophils Percent Auto 5.5 % (2-4); Hematocrit 37.5 % (41-53); Hemoglobin 13.1 g/dL (13.5-17.5); Lymphocytes Absolute Auto 1300 /uL (1100-4500); Lymphocytes Percent Auto 17.6 % (25-40); Mean Corpuscular HGB Conc 34.9 % (30-36); Mean Corpuscular Hemoglobin 34.5 PG (26-34); Mean Corpuscular Volume 98.7 fL (80-100); Monocytes Absolute Auto 600 /uL (0-900); Monocytes Percent Auto 7.7 % (3-14); Neutrophils Absolute Auto 5000 /uL (1500-7000); Neutrophils Percent Auto 68.3 % (50-75); Platelet Count 359 X10^3/uL (150-400); White Blood Cell Count 7.3 X10^3/uL (4.5-11.0)
[2019-01-26 14:30] VITALS: BP 146/69; PULSE 84; RESP 18; O2SAT 95
[2019-01-26 14:33] LABS: INR 0.9 (0.9-1.3); Prothrombin Time 10.9 SECONDS (10.1-12.7)
[2019-01-26 14:35] LABS: PTT Partial Thromboplastin Tim 31 SECONDS (26.4-36.2)
[2019-01-26 14:37] LABS: Alanine Aminotransferase 39 IU/L (<50); Albumin 4.5 g/dL (3.5-5.0); Albumin Globulin Ratio 1.7 (1.0-2.8); Alkaline Phosphatase 83 U/L (38-126); Aspartate Aminotransferase 28 IU/L (17-59); BUN Creatinine Ratio 17.5 (6-22); Bilirubin Total 0.4 mg/dL (0.2-1.3); Blood Urea Nitrogen 14 mg/dL (9-20); Calcium 9.5 mg/dL (8.4-10.2); Carbon Dioxide 32 mmol/L (22-32); Chloride 93 mmol/L (98-107); Estimated Glomerular Filt Rate > 60.0 mL/min (>60); Globulin 2.6 g/dL (1.7-4.1); Glucose 97 mg/dL (70-100); HEMOLYSIS < 15 (0-50); Potassium 3.9 mmol/L (3.4-5.1); Sodium 133 mmol/L (137-145); Total Protein 7.1 g/dL (6.3-8.2)
[2019-01-26] MEDS: TET,DIPH,PERTUSS(ACELL),VAC/PF 0.5 ML SYRINGE IM (14:54)
[2019-01-26 15:19] VITALS: BP 146/97; PULSE 92; O2SAT 98
--- NOTE | 2019-01-26 15:20 | PC.NURSE ---
Cleansed wound. Wound appears clean and free of debris. Replaced pressure bandage.
[2019-01-26] MEDS: LIDOCAINE 2% W/EPI INJ 1 ML INJ (15:31)
[2019-01-26] MEDS: BACITRACIN OINT 0.9 GM PCKT 1 APPLIC TOP (15:45)
== END 2019-01-26 15:53 | disposition home or self-care (01) ==
PROVIDERS: Emergency Provider Emergency Medicine
DX: S09.90XA Unspecified injury of head, initial encounter (principal); S01.01XA Laceration without foreign body of scalp, initial encounter; W01.10XA Fall on same level from slipping, tripping and stumbling with subsequent striking against unspecified object, initial encounter; Z23 Encounter for immunization; Z79.01 Long term (current) use of anticoagulants
CPT/HCPCS: 12002; 36415; 70450; 80053; 85025; 85610; 85730; 90471; 99283; 99284; 90715

== ENCOUNTER 2019-10-13 10:36 | Emergency (ER) | payer OTHER, SELFPAY ==
[2019-10-13 10:39] VITALS: BP 164/77; PULSE 65; RESP 16; TEMP 36.8; O2SAT 100; BMI 23.3
--- NOTE | 2019-10-13 11:13 | PC.NURSE ---
left elbow wound washed with soap and water. nonadherent pad placed, and netting to secure.
--- NOTE | 2019-10-13 11:53 | ED_ITS ---
HPI - Wound/Laceration <XOCHITL Rm - Last Filed: 10/13/19 19:51> General Chief Complaint: Wound/Laceration Stated Complaint: infected arm Time Seen by Provider: 10/13/19 11:05 Source: patient Mode of arrival: Ambulatory History of Present Illness HPI narrative: 54yo male presents to the ED for concerns for infection in his left elbow. He states he fell approximately 2 weeks ago, he was in the kitchen and slipped and fell backwards hitting his elbow on the cabinet. He denies any head injury. He states approximately 2 weeks ago sutures were placed at [facility]. He believes they were removed to seen (reports the removed a few days ago), he states the wound opened up a few days ago and some clear drainage was expressed from the area. Patient noticed redness and tenderness this morning. 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 Patient denies any difficulty moving his elbow, or elbow pain. He denies any fevers, chills, nausea, vomiting, diarrhea, chest pain, shortness of breath, or any other concerns. Related Data Home Medications Medication Instructions Recorded Confirmed hydrochlorothiazide 25 mg PO DAILY 12/29/18 01/26/19 lamotrigine 200 mg PO BID 12/29/18 01/26/19 amlodipine 5 mg PO DAILY 01/26/19 01/26/19 aspirin 81 mg PO DAILY 01/26/19 01/26/19 atorvastatin 40 mg PO DAILY 01/26/19 01/26/19 citalopram 40 mg PO DAILY 01/26/19 01/26/19 nicotine 21 mg TOPICAL DAILY 01/26/19 01/26/19 ticagrelor [Brilinta] 90 mg PO [id number] 01/26/19 01/26/19 Previous Rx's Medication Instructions Recorded doxycycline hyclate 100 mg PO BID 7 Days #14 cap 10/13/19 Allergies Allergy/AdvReac Type Severity Reaction Status Date / Time No Known Drug Allergies Allergy Verified 10/13/19 10:39 Review of Systems <XOCHITL Rm - Last Filed: 10/13/19 19:51> Review of Systems Narrative: REVIEW OF SYSTEMS: GENERAL: Denies fever or chills. HENT: Denies head trauma. EYE: Denies double vision or vision loss. CARDIOVASCULAR: Denies syncope. MUSCULOSKELETAL: Denies weakness, or deformities. INTEGUMENTARY: Complains of laceration, redness and swelling to left elbow, see HPI. NEURO: Denies numbness or tingling. Patient History <XOCHITL Rm - Last Filed: 10/13/19 19:51> Medical History HTN (hypertension) (Acute) Hyperlipidemia (Acute) Social History Smoking Status: Current every day smoker Smoking Status: Current every day smoker alcohol intake frequency: 3 or more drinks per day Alcohol type: beer and hard liquor Substance Use Type: does not use Exam <XOCHITL Rm - Last Filed: 10/13/19 19:51> Initial Vital Signs Initial Vital Signs: Vital Signs Temperature 98.3 F 10/13/19 10:39 Pulse Rate 65 10/13/19 10:39 Respiratory Rate 16 10/13/19 10:39 Blood Pressure 164/77 H 10/13/19 10:39 Pulse Oximetry 100 10/13/19 10:39 PHYSICAL EXAMINATION: GENERAL: Well groomed, alert, and cooperative. Answers questions promptly and appropriately. Vital signs noted. HENT: Normocephalic, atraumatic. EYES: Symmetrical, sclera white, no periorbital swelling. CARDIOVASCULAR: Regular rate. RESPIRATORY: Normal respiratory rate, trachea midline, airway patent. No stridor, nasal flaring or accessory muscle use. MUSCULOSKELETAL: An approximate 4 cm wound noted to left elbow, serosanguineous discharge noted. Approximately 3 cm of surrounding erythema and tenderness with increased temp noted. Patient able to fully bend and extend elbow without any pain or difficulty. No pain to palpation of bony prominences of elbow. 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 Normal gait and coordination. EXTREMITIES: CMS intact. Radial pulses 2+ intact bilaterally. SKIN: Warm, dry, soft, appropriate color for ethnicity. No lesions, rashes, or wounds. NEURO: Alert and Oriented X 3. No sensory deficits. PSYCH: Appropriate affect and mood. <Sylvain Feliz MD - Last Filed: 10/14/19 13:16> Initial Vital Signs Initial Vital Signs: Vital Signs Temperature 98.3 F 10/13/19 10:39 Pulse Rate 65 10/13/19 10:39 Respiratory Rate 16 10/13/19 10:39 Blood Pressure 164/77 H 10/13/19 10:39 Pulse Oximetry 100 10/13/19 10:39 Course <XOCHITL Rm - Last Filed: 10/13/19 19:51> Vital Signs Vital signs: Vital Signs - 8 hr 10/13/19 10:39 Temperature 98.3 F Pulse Rate 65 Respiratory Rate 16 Blood Pressure 164/77 H Pulse Oximetry 100 <Sylvain Feliz MD - Last Filed: 10/14/19 13:16> Vital Signs Vital signs: Vital Signs - 8 hr 10/13/19 10:39 Temperature 98.3 F Pulse Rate 65 Respiratory Rate 16 Blood Pressure 164/77 H Pulse Oximetry 100 MDM - Wound/Laceration <XOCHITL Rm - Last Filed: 10/13/19 19:51> Medical Records Attestation: I reviewed the patient's medical records. Lab Data Attestation: I reviewed the patient's lab results. MDM Narrative Medical decision making narrative: History and examination consistent with cellulitis. Less concern for septic joint given patient has full range of motion of elbow without pain. No pain with palpation of bony prominences of elbow. Less concern for sepsis due to lack of tachycardia, patient is afebrile. Additionally, patient reports he noticed erythema starting this morning. Patient was given doxycycline to cover for cellulitis. He was encouraged to follow up with his PCP in 1-2 days for further evaluation. Very strict return precautions given for new or worsening symptoms, patient agreed to plan of care verbalized understanding. Wound was not reclosed given infection and recurrence of injury approximately 2 weeks ago. Discharge Plan Departure Patient Disposition: Home Clinical Impression: Cellulitis Qualifiers: Site of cellulitis: extremity Site of cellulitis of extremity: upper extremity Laterality: left Qualified Code(s): L03.114 - Cellulitis of left upper limb Discharge Date/Time: 10/13/19 11:17 Instructions: DI for Cellulitis -- Adult Activity Restrictions/Additional Instructions: Thank you for entrusting me with your care today. As discussed, it appears your wound is infected. I have given you a prescription for antibiotics, please take these accordingly. I highly recommend following up with your primary care provider or walk-in clinic for a re-evaluation in the neck 2-3 days. Return emergency department for any new or worsening symptoms such as increasing redness, high fevers, inability to move your elbow, or any other concerns. Prescriptions: New doxycycline hyclate 100 mg capsule 100 mg PO BID 7 Days Qty: 14 RF: 0 No Action atorvastatin 40 mg tablet 40 mg PO DAILY RF: 0 citalopram 40 mg tablet 40 mg PO DAILY RF: 0 amlodipine 5 mg tablet 5 mg PO DAILY RF: 0 aspirin 81 mg tablet,delayed release (DR/EC) 81 mg PO DAILY RF: 0 nicotine 21 mg/24 hr patch 24 hour 21 mg topical DAILY RF: 0 Brilinta 90 mg tablet 90 mg PO [id number] RF: 0 lamotrigine 200 mg Tablet 200 mg PO BID RF: 0 hydrochlorothiazide 25 mg tablet 25 mg PO DAILY RF: 0 <Sylvain Feliz MD - Last Filed: 10/14/19 13:16> Cosign ED Attending Cosignature Attestation: I was immediately available in the department for consultation. This documentation has been reviewed and I agree with assessment and plan. Supervised by Sylvain Feliz MD
== END 2019-10-13 11:17 | disposition home or self-care (01) ==
LOC: ED 11:15
PROVIDERS: Emergency Provider Nurse Practitioner
DX: L03.114 Cellulitis of left upper limb (principal)
CPT/HCPCS: 99281; 99282

== ENCOUNTER 2019-10-20 09:46 | Inpatient (IN) | payer OTHER, SELFPAY ==
[2019-10-20] VITALS (15 sets, daily range): BP systolic 137–162; BP diastolic 65–91; PULSE 53–64; RESP 16–25; TEMP 36.4–36.8; O2SAT 95–100; BMI 22.8
--- NOTE | 2019-10-20 09:58 | DI.CT.S_ITS ---
PROCEDURE: CT HEAD/BRAIN WO CON INDICATIONS: Four days of dysarthria, 2 prior strokes TECHNIQUE: Noncontrast 4.5 mm thick angled axial sections acquired from the foramen magnum to the vertex, with coronal and sagittal reformats. For radiation dose reduction, the following was used: automated exposure control, adjustment of mA and/or kV according to patient size. COMPARISON: [facility], CT, CT HEAD/BRAIN WO CON, 12/29/2018, 10:18. [facility], CT, CT HEAD/BRAIN WO CON, 01/26/2019, 14:15. FINDINGS: Image quality: Excellent. CSF spaces: Basal cisterns are patent. No extra-axial fluid collections. Ventricles are normal in size and shape. Brain: No midline shift. No intracranial masses or hemorrhage. Large area of encephalomalacia in the right frontal parietal lobe which is similar dating back to 12/29/2018. Small area of hypodensity involving the left insula which is increased compared to the prior exam. Skull and face: Calvarium and visualized facial bones are intact, without suspicious lesions. Sinuses: Mild thickening in the right maxillary sinus is again seen. Visualized sinuses and mastoids are otherwise clear. IMPRESSION: 1. Increased small area of hypodensity in the left insula compared to the prior head CT. This could be due to subacute or chronic infarction. 2. Stable large area of encephalomalacia in the right frontal parietal lobe due to prior infarct. 3. No acute intracranial hemorrhage. Dictated by: Zhen Coppola M.D. on 10/20/2019 at 10:16 Approved by: Zhen Coppola M.D. on 10/20/2019 at 10:22
--- NOTE | 2019-10-20 10:02 | ED_ITS ---
HPI - General Adult General Chief complaint: Neuro Symptoms/Deficit Stated complaint: thinks he had a tia Time Seen by Provider: 10/20/19 09:53 History of Present Illness HPI narrative: 54-year-old gentleman with a history of 2 prior strokes, hypertension, hyperlipidemia, seizures after the strokes presents with 4 days of increasing dysarthria and his feels that his gait is a bit more unsteady. Patient complains that his tongue feels like it is swollen in just isn't working right. After his prior to strokes he does have residual decreased sensation in upper and lower extremities but has not had any difficulty with dysarthria. Related Data Home Medications Medication Instructions Recorded Confirmed hydrochlorothiazide 25 mg PO DAILY 12/29/18 01/26/19 lamotrigine 200 mg PO BID 12/29/18 01/26/19 amlodipine 5 mg PO DAILY 01/26/19 01/26/19 aspirin 81 mg PO DAILY 01/26/19 01/26/19 atorvastatin 40 mg PO DAILY 01/26/19 01/26/19 citalopram 40 mg PO DAILY 01/26/19 01/26/19 nicotine 21 mg TOPICAL DAILY 01/26/19 01/26/19 ticagrelor [Brilinta] 90 mg PO [id number] 01/26/19 01/26/19 Allergies Allergy/AdvReac Type Severity Reaction Status Date / Time No Known Drug Allergies Allergy Verified 10/13/19 10:39 Review of Systems Review of Systems Narrative: Pertinent positive and negative findings as per HPI Remainder of review of systems is otherwise unremarkable for Constitutional: Fevers, chills, weakness ENT: No sore throat, neck pain, ear pain CV: Chest pain, palpitations, dyspnea on exertion Respiratory: Cough, wheeze, dyspnea GI: Nausea, vomiting, diarrhea, change in bowel habits, black or bloody stools : Dysuria, hematuria, flank pain Skin: Rashes, nonhealing lesions Patient History Medical History HTN (hypertension) (Acute) Hyperlipidemia (Acute) Stroke (Acute) Social History household members: spouse and children Smoking Status: Current every day smoker Smoking Status: Current every day smoker alcohol intake frequency: 3 or more drinks per day Alcohol type: beer and hard liquor Substance Use Type: does not use Exam Narrative Exam Narrative: General: Healthy appearing, in no acute distress. Able to give a complete and coherent history. Well-nourished well-developed HEENT: Moist mucous membranes, normal sclera with reactive pupils, Neck: supple Respiratory: Lungs are clear to auscultation, no wheezing no rales no rhonchi. Full and symmetrical air movement Cardiac: Regular rate and rhythm no murmurs no bruits Abdomen: Soft nontender good bowel tones, no flank pain Skin: Warm and dry, no rashes Neurologic: Decreased sensation and slight decreased strength in the left upper extremity with decreased sensation left lower extremity chronic and patient reports unchanged. Mild dysarthria but he is able to be understood. Fluent thought pattern and no signs of receptive aphasia Extremities: No trauma, well perfused Psych: Cooperative, appropriate insight and affect NIH score = 1 Dysarthria Initial Vital Signs Initial Vital Signs: Vital Signs Blood Pressure 162/75 H 10/20/19 09:56 Course Orders Ordered: ED Orders 10/20/19 09:58 CT head/brain wo con Stat Urine Drug Screen, Rapid Stat EKG-12 Lead Stat 10/20/19 10:01 Complete Blood Count AUTO DIFF Stat Comprehensive Metabolic Panel Stat Partial Thromboplastin Time Stat Prothrombin Time INR Stat Acetaminophen (Tylenol) 650 mg PO Q6HR PRN PRN Reason: Fever/Mild Pain (1-3) Enoxaparin Sodium (Lovenox) 40 mg SUBCUT DAILY IVAN Sodium Chloride (Normal Saline 0.9%) 1,000 mls @ 150 mls/hr IV CONT IVAN Last Infusion: 10/20/19 13:04 Dose: 0 mls/hr Documented by: Admin: 10/20/19 10:25 Dose: 150 mls/hr Documented by: [email or web address] Ondansetron HCl (Zofran) 4 mg IV Q8HR PRN PRN Reason: Nausea And Vomiting Vital Signs Vital signs: Vital Signs - 8 hr 10/20/19 09:56 10/20/19 10:00 10/20/19 10:06 Temperature 97.9 F Pulse Rate 62 60 Respiratory Rate 16 16 Blood Pressure 162/75 H 162/65 H Pulse Oximetry 99 98 10/20/19 10:30 10/20/19 11:00 10/20/19 11:30 Temperature Pulse Rate 56 L 57 L 53 L Respiratory Rate 17 25 H 16 Blood Pressure Pulse Oximetry 100 99 100 10/20/19 12:00 Temperature Pulse Rate 55 L Respiratory Rate 19 Blood Pressure Pulse Oximetry 100 Medical Decision Making Medical Records Medical records reviewed: Yes I reviewed the patient's medical records. Lab Data Lab results reviewed: Yes I reviewed the patient's lab results. Result diagrams: 10/20/19 10:01 10/20/19 10:01 Labs: Lab Results 10/20/19 10/20/19 10/20/19 Range/Units 10:01 10: 10:01 WBC 6.5 (4.5-11.0) X10^3/uL RBC 3.90 L (4.5-5.9) X10^6/uL Hgb 13.5 (13.5-17.5) g/dL Hct 38.7 L (41-53) % MCV 99.1 (80-100) fL MCH 34.5 H (26-34) PG MCHC 34.9 (30-36) % RDW 13.3 (11.6-14.8) % Plt Count 354 (150-400) X10^3/uL Neut % (Auto) 69.7 (50-75) % Lymph % (Auto) 17.2 L (25-40) % [place] % (Auto) 7.8 (3-14) % Eos % (Auto) 4.7 H (2-4) % Baso % (Auto) 0.6 (0-2) % Neut # (Auto) 4600 (6979-6747) /uL Lymph # (Auto) 1100 (8674-7659) /uL [place] # (Auto) 500 (0-900) /uL Eos # (Auto) 300 (0-450) /uL Baso # (Auto) 0 (0-100) /uL PT 11.1 (10.1-12.7) SECONDS INR 1.0 (0.9-1.3) APTT 32 (26.4-36.2) SECONDS Sodium 136 L (137-145) mmol/L Potassium 4.1 (3.4-5.1) mmol/L Chloride 100 (98-107) mmol/L Carbon Dioxide 32 (22-32) mmol/L BUN 14 (9-20) mg/dL Creatinine 0.80 (0.66-1.25) mg/dL Estimated GFR > 60.0 (>60) mL/min BUN/Creatinine Ratio 17.5 (6-22) Glucose 103 H (70-100) mg/dL Calcium 9.4 (8.4-10.2) mg/dL Total Bilirubin 0.6 (0.2-1.3) mg/dL AST 33 (17-59) IU/L ALT 28 (<50) IU/L Alkaline Phosphatase 78 (38-126) U/L Total Protein 6.9 (6.3-8.2) g/dL Albumin 4.3 (3.5-5.0) g/dL Globulin 2.6 (1.7-4.1) g/dL Albumin/Globulin Ratio 1.7 (1.0-2.8) Point of Care Testing Glucose POC 110 Urine Dip Bedside Urine Glucose Negative Bedside Urine Bilirubin - Negative Bedside Urine Ketone - Negative Urine Specific [place] 1.010 Bedside Urine Occult Blood - Negative Bedside Urine pH 7.0 Bedside Urine Protein - Negative Bedside Urine Urobilinogen - Negative Bedside Urine Nitrite - Negative Bedside Urine Leukocytes - Negative Esterase Point of care testing: Point of Care Testing Glucose POC 110 Urine Dip Bedside Urine Glucose Negative Bedside Urine Bilirubin - Negative Bedside Urine Ketone - Negative Urine Specific [place] 1.010 Bedside Urine Occult Blood - Negative Bedside Urine pH 7.0 Bedside Urine Protein - Negative Bedside Urine Urobilinogen - Negative Bedside Urine Nitrite - Negative Bedside Urine Leukocytes - Negative Esterase Imaging Data CT scan - head: Radiologist's Impression: IMPRESSION: 1. Increased small area of hypodensity in the left insula compared to the prior head CT. This could be due to subacute or chronic infarction. 2. Stable large area of encephalomalacia in the right frontal parietal lobe due to prior infarct. 3. No acute intracranial hemorrhage. Dictated by: Zhen Coppola M.D. on 10/20/2019 at 10:16 ECG Data Attestation: I personally reviewed and interpreted this ECG as follows: Interpretation: Sinus rhythm at a rate of 63 Normal intervals, normal axis No acute ischemic changes MDM Narrative Medical decision making narrative: 54-year-old gentleman presents with 4 days of slightly increased dysarthria. CT scan suggests an increased area of hypode nsity in the left insula compared to the prior head CT As symptoms are at least 4-day-old he is not a tPA candidate Will review with Neurology as to appropriate follow-up at this time. Agreed with recommendation for inpatient evaluation. Patient was initially somewhat reluctant however explained the need for maximizing therapy so that his neck stroke is not one that is going to cause traumatic hemiplegia and lifelong longterm requirement. Care is reviewed with Dr. Moya who will admit the patient Discharge Plan Departure Patient Disposition: Admitted As Inpatient Clinical Impression: Stroke Qualifiers: CVA mechanism: unspecified Qualified Code(s): I63.9 - Cerebral infarction, unspecified Discharge Date/Time: 10/20/19 13:32 Referrals: Stephanie Felix MD [Primary Care Provider] - Admit Date/Time: 10/20/19 12:59 Admit Provider: Marcelino Moya
[2019-10-20 10:09] LABS: Add Manual Diff / Slide Review NO; Basophils Absolute Auto 0 /uL (0-100); Basophils Percent Auto 0.6 % (0-2); Eosinophils Absolute Auto 300 /uL (0-450); Eosinophils Percent Auto 4.7 % (2-4); Hematocrit 38.7 % (41-53); Hemoglobin 13.5 g/dL (13.5-17.5); Lymphocytes Absolute Auto 1100 /uL (1100-4500); Lymphocytes Percent Auto 17.2 % (25-40); Mean Corpuscular HGB Conc 34.9 % (30-36); Mean Corpuscular Hemoglobin 34.5 PG (26-34); Mean Corpuscular Volume 99.1 fL (80-100); Monocytes Absolute Auto 500 /uL (0-900); Monocytes Percent Auto 7.8 % (3-14); Neutrophils Absolute Auto 4600 /uL (1500-7000); Neutrophils Percent Auto 69.7 % (50-75); Platelet Count 354 X10^3/uL (150-400); Red Cell Distribution Width 13.3 % (11.6-14.8); White Blood Cell Count 6.5 X10^3/uL (4.5-11.0)
[2019-10-20 10:16] LABS: Prothrombin Time 11.1 SECONDS (10.1-12.7)
[2019-10-20 10:19] LABS: PTT Partial Thromboplastin Tim 32 SECONDS (26.4-36.2)
[2019-10-20 10:20] LABS: Alanine Aminotransferase 28 IU/L (<50); Albumin 4.3 g/dL (3.5-5.0); Albumin Globulin Ratio 1.7 (1.0-2.8); Alkaline Phosphatase 78 U/L (38-126); Aspartate Aminotransferase 33 IU/L (17-59); BUN Creatinine Ratio 17.5 (6-22); Bilirubin Total 0.6 mg/dL (0.2-1.3); Blood Urea Nitrogen 14 mg/dL (9-20); Calcium 9.4 mg/dL (8.4-10.2); Carbon Dioxide 32 mmol/L (22-32); Chloride 100 mmol/L (98-107); Estimated Glomerular Filt Rate > 60.0 mL/min (>60); Globulin 2.6 g/dL (1.7-4.1); Glucose 103 mg/dL (70-100); HEMOLYSIS < 15 (0-50); Potassium 4.1 mmol/L (3.4-5.1); Sodium 136 mmol/L (137-145); Total Protein 6.9 g/dL (6.3-8.2)
[2019-10-20] MEDS: SODIUM CHLORIDE 0.9% 1,000 ML 150 ML IV (10:25)
--- NOTE | 2019-10-20 13:39 | PC.NURSE ---
Day shift: Pt on AC unit at aprox 1335 from ED. He is A&Ox3. Denies any chest pain or trouble breathing. Oriented to room and call light. Spouse in room for support. Covid test is pending. Report from ED RN that Pt drinks 3-6 drinks daily. Pt agrees to not get OOB w/o help from staff.
--- NOTE | 2019-10-20 13:44 | DI.MRI.S_ITS ---
PROCEDURE: MR STROKE Pre- and post-contrast brain MRI, non-contrast brain MR angiogram, pre- and postcontrast neck MR angiogram INDICATIONS: dysarthria, CT head with subacute infarct TECHNIQUE: Brain: Noncontrast axial T1 spin echo, axial T2 fast spin echo, sagittal and axial FLAIR, coronal T2 fast spin echo, axial gradient echo, axial diffusion and ADC through the brain. After the administration of contrast, axial 3D VIBE of the cranial vasculature and brain. Brain MRA: Non-contrast 3-D time of flight MR angiogram, with multiple vohabwy-bssxqwdww-optvmnwcjl (MIP) reformats performed. Neck MRA: Axial and sagittal TruFISP through the neck. Coronal dynamic MR angiogram during administration of contrast in the arterial and venous phases, with 3-dimenstional alcydig-khctqwaqs-hbundqntwm (MIP) reformats constructed from subtraction images. COMPARISON: [facility], CT, CT ANGIO HEAD AND NECK, 12/29/2018, 13:27. [facility], MR, STROKE PROTOCOL, 04/18/2016, 10:08. FINDINGS: Image quality: Excellent. BRAIN: The ventricular system and cortical sulci demonstrate atrophy, consistent for the patient's stated age. There are areas of increased T2/FLAIR signal intensity within the periventricular and subcortical white matter. There is encephalomalacia in substance coli oasis within the right MCA distribution. This was present in 2017. There is no acute intra-or extra axial fluid collection. No acute hemorrhage, mass lesion or midline shift. Brainstem is unremarkable. Several areas of punctate restricted diffusion are noted in the left roach radiata. Globes are symmetrical. Sinuses are aerated. Osseous structures are intact. BRAIN MR ANGIOGRAM: Anterior circulation: As previously identified, there is diminutive distal flow within the right middle cerebral artery branches although they remain patent. Intracranial internal carotid arteries as well as bilateral anterior posterior cerebral and left middle cerebral arteries are widely patent. Posterior circulation: There is a right vertebral artery dominance. The left vertebral artery is distally diminutive and ends in PICA.. The flow within the posterior cerebral arteries is normal and symmetric. No stenoses, occlusions, or aneurysms. NECK MR ANGIOGRAM: There is high-grade stenosis/occlusion within the proximal internal artery for segment measuring approximately 3 cm. Distal reconstitution is present. In addition, there is high-grade stenosis/occlusion at the origin of the left external carotid artery measuring approximately 12 mm in length. High-grade stenosis/focal occlusion is present at the origin of the right external carotid artery. Origins of the left and right vertebral arteries demonstrate no areas of hemodynamically significant stenosis, vascular occlusion or aneurysmal dilation. 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 IMPRESSION: 1. Punctate areas of restrictive diffusion consistent with acute/subacute ischemia in the left centrum semiovale. 2. Diminutive distal right MCA flow unchanged compared to prior exam. Large right encephalomalacia focus consistent with old infarct. 3. Interval high-grade stenosis/occlusion at the origin of the right external carotid artery. 4. High-grade stenosis/occlusion within focal segment of the proximal left external carotid artery. 5. Long segment stenosis/occlusion within the proximal left internal carotid artery as above with distal reconstitution. Dictated by: Nisha Knox M.D. on 10/20/2019 at 16:56 Approved by: Nisha Knox M.D. on 10/20/2019 at 17:08
[2019-10-20 14:13] LABS: COVID19 -Nasal RAPID Negative (Negative)
--- NOTE | 2019-10-20 14:56 | PC.NURSE ---
Day shift: Pt back on AC unit from MRI.
--- NOTE | 2019-10-20 16:33 | ST.IPIE ---
Visit Care Team Role Provider Type Stephanie Felix MD Primary Care Provider Non-Staff Specialty: Family Practice Address: [address] [place] [address], [id number] Email: Eva Bragg MD Emergency Provider Physician Referring Provider Specialty: Emergency Medicine Address: [address] [place] [address], [id number] Email: Marcelino Moya DO Admit Provider Physician Attending Provider Specialty: Internal Medicine Address: [address] [place] [address], [id number] Email: [email or web address] Past Medical History (Last Reviewed 10/20/19 @ 10:04 by Eva Bragg MD) HTN (hypertension) (Acute Medical) Hyperlipidemia (Acute Medical) Stroke (Acute Medical) x2 with residual left-sided decreased sensation ST IP Initial Evaluation Report REWINDER OPERATOR HELPER Motor Speech Evaluation Start: 10/20/19 16:20 Freq: Status: Active Protocol: Document 10/20/19 16:20 MG (Rec: 10/20/19 16:33 MG [id number]) Motor Speech Evaluation Session Time Visit Start Time 15:45 Visit Stop Time 16:10 Total Visit Minutes 25 Visit Information Visit Number 1 Setting Setting Acute Care Next Note Type Next Note Type Treatment Note Patient History Source: [employer] [facility] Patient History 54-year-old gentleman with a history of 2 prior strokes, hypertension, hyperlipidemia, seizures after the strokes presents with 4 days of increasing dysarthria and his feels that his gait is a bit more unsteady. Patient complains that his tongue feels like it is swollen in just isn't working right. After his prior to strokes he does have residual decreased sensation in upper and lower extremities but has not had any difficulty with dysarthria . Pt reported that his speech has gotten worse recently. Pt reported that he has received speech therapy in the past for memory/cognition. Notes and speaking with the nurse indicate swallowing difficulties with pills. Pt reported that he tends to take all of his pills at once. Mental Status Mental Status Alert,Responsive,Cooperative Subjective Observations Subjective Pt was seen sitting upright in bed with next to bedside . Pt was agreeable for REWINDER OPERATOR HELPER to enter the room and provide evaluation. Noted slight left lip droop at rest. Pt was friendly and cooperative. Oral Motor Lips Function Mild Impairment Tongue Function Mild Impairment Jaw Function WFL Soft Palate Function WFL Respiration/Phonation Phonation Quality WFL Function WFL Loudness WFL Conversation Other Run off sentences that become difficult to understand Duration WFL Function Mildly Impaired Loudness Reduced Loudness Diadochokinetic Rates P^ Quality WFL T^ Quality WFL K^ Quality WFL P^T^K^ Quality WFL Speech Intelligibility Awareness/Strategy Use Description Type of awareness/use Uses intermittently Findings Details Motor Speech Function Mild-Moderate Impairment Type of Impairment Mild-moderate dysarthria Assessment Details Assessment REWINDER OPERATOR HELPER performed clinical swallow evaluation as well. For all trials of solids and liquids, pt did not demonstrate overt s /sx of aspiration. Pt could masticate solids with no problems. No wet/gurgly voice noted on any trials. Laryngeal palpation indicated movement WFL at this time. Pt reported no trouble with solids and liquids throughout evaluation. REWINDER OPERATOR HELPER educated pt about taking pills one at a time or in a carrier (e.g., applesause) to help swallowing abilities. Pt's speech is understandable but turns in to word salad as the sentence progresses as described by pt and . At times, pt is difficult to understand. When asked to repeat, he does so with more accuracy. Pt reports his speech production has gotten worse recently. At this time, pt did not demonstrate any aphasia-like symptoms given results from screener. Prognosis Rehabilitation Potential Good Recommendations Treatment Recommended Yes: Oral motor exercises to increase speech intelligibility Therapy Recommendations ST to work with pt re:dx of dysarthria. Oral motor exercises were discussed and practiced with pt while REWINDER OPERATOR HELPER was present. Short Term Goals Pt and caregiver will participate in education re: speech sound production and oral motor exercises. Inlayer Silver Goals Pt will follow through with home exercise program ( exercises 3x daily) to improve speech intelligibility. Patient/Family Education Education Described results of evaluation,Patient Understanding,Family Understanding
--- NOTE | 2019-10-20 17:56 | PM.HP.1 ---
History of Present Illness History of Present Illness Date Patient Seen: 10/20/19 Time Patient Seen: 13:00 Date of Onset of Symptoms: 10/16/19 Chief complaint: thinks he had a tia Narrative: Pérez Dhillon is a 54-year-old male with past medical history of hypertension, hyperlipidemia, prior CVA x2with residual left-sided weakness,ETOH abuse who started experiencing difficulty speaking per his starting 4 days ago. thought his speaking was getting worse ultimately decided to bring him into the emergency room. He has chronic left upper extremity weakness from his prior stroke and denies any recent new weakness or difficulty ambulating. did not see facial asymmetry or facial droop. He denies any headache, palpitations, chest pain, shortness of breath, cough, nausea, vomiting, abdominal pain, diarrhea, lower extremity swelling. He does not have any trouble swallowing food or water, but states that sometimes it feels like his medications gets stuck in the middle of his chest. He does drink nightly, consuming approximately 6-12 beers per night. He does have a history of alcohol withdrawals, but no seizures from the withdrawal or intubations for alcohol withdrawal. He was placed on Lamictal after a seizure from one of his prior strokes. In the emergency room, initial vital signs were unremarkable, and initial laboratory studies were also unremarkable. COVID-[address] head revealed a possible subacute infarction in the left insula. Patient was admitted under inpatient status for an acute CVA. Patient History Medical History (Updated 10/20/19 @ 12:52 by Eva Bragg MD) HTN (hypertension) (Acute) Hyperlipidemia (Acute) Stroke (Acute) Surgical History (Updated 10/20/19 @ 20:19 by Marcelino Moya DO) H/O carotid endarterectomy (Acute) Family & Social History Social History: household members spouse,children Prior Living Arrangements House Safety & Behavioral: Feels Safe in Current Yes Environment Been Physically Hurt or No Threatened By a Person Suicidal Ideation Description None Suicide Plan Description No Plan Tobacco & Substance use: Tobacco type cigarettes Smoking Status Current every day smoker Smoking packs per day 0.5 alcohol intake frequency 3 or more drinks per day Substance Use Type does not use Meds Home Medications and Allergies Home Medications Medication Instructions Recorded Confirmed Type hydrochlorothiazide 25 mg PO DAILY 12/29/18 10/20/19 History lamotrigine 200 mg PO BID 12/29/18 10/20/19 History amlodipine 5 mg PO DAILY 01/26/19 10/20/19 History aspirin 81 mg PO DAILY 01/26/19 10/20/19 History atorvastatin 40 mg PO DAILY 01/26/19 10/20/19 History citalopram 40 mg PO DAILY 01/26/19 10/20/19 History ticagrelor [Brilinta] 90 mg PO [id number] 01/26/19 10/20/19 History Allergies Allergy/AdvReac Type Severity Reaction Status Date / Time No Known Drug Allergies Allergy Verified 10/13/19 10:39 Review of Systems Review of Systems Narrative: All other systems reviewed with the patient and are negative unless otherwise stated. Exam Vital Signs (past 8 hours): - 10/20/19 10:00 10/20/19 10:06 10/20/19 10:30 Temperature 97.9 F Pulse Rate 62 60 56 L Respiratory Rate 16 16 17 Blood Pressure 162/65 H Pulse Oximetry 99 98 100 10/20/19 11:00 10/20/19 11:30 10/20/19 12:00 Temperature Pulse Rate 57 L 53 L 55 L Respiratory Rate 25 H 16 19 Blood Pressure Pulse Oximetry 99 100 100 10/20/19 13:30 10/20/19 13:59 10/20/19 14:25 Temperature 97.6 F Pulse Rate 64 56 L Respiratory Rate 19 Blood Pressure 150/91 H 148/76 H Pulse Oximetry 99 99 98 10/20/19 16:15 Temperature 98.3 F Pulse Rate 57 L Respiratory Rate 20 Blood Pressure 138/86 Pulse Oximetry 99 Oxygen Delivery Method Room Air Oxygen Flow Rate 0 Narrative Exam Narrative: GENERAL APPEARANCE: Well developed, well nourished, in no acute distress. SKIN: Inspection of the skin reveals no rashes, ulcerations or petechiae. HEENT: Normocephalic atraumatic, extraocular muscles are intact, oropharynx is clear and mucous membranes are moist, neck is supple without adenopathy NECK: Supple and symmetric. There was no thyroid enlargement, and no tenderness, or masses were felt. CHEST: Normal AP diameter and normal contour without any kyphoscoliosis. LUNGS: Auscultation of the lungs revealed no wheezes, rhonchi, or rales. CARDIOVASCULAR: There was a regular rate and rhythm without any murmurs, gallops, rubs. Peripheral pulses were 2+ and symmetric. ABDOMEN: Soft and nontender with normal bowel sounds. No ascites was noted. MUSCULOSKELETAL: There was no tenderness or effusions noted. Muscle strength and tone were normal. EXTREMITIES: No cyanosis, clubbing or edema. NEUROLOGIC: Alert and oriented x 3. Normal affect. Strength is +5/5 in the Upper Extremities and Lower Extremities Bilaterally, left upper extremity slightly weaker compared to the right but he is able to hold his left arm correctly for the stroke scale. Sensation to touch was normal. Mild dysarthria Objective Labs Result Diagrams: 10/20/19 10:01 10/20/19 10:01 Labs: Laboratory Results - last 24 hr 10/20/19 10/20/19 10/20/19 10:01 10:01 10:01 WBC 6.5 RBC 3.90 L Hgb 13.5 Hct 38.7 L MCV 99.1 MCH 34.5 H MCHC 34.9 RDW 13.3 Plt Count 354 Neut % (Auto) 69.7 Lymph % (Auto) 17.2 L Saline % (Auto) 7.8 Eos % (Auto) 4.7 H Baso % (Auto) 0.6 Neut # (Auto) 4600 Lymph # (Auto) 1100 Saline # (Auto) 500 Eos # (Auto) 300 Baso # (Auto) 0 PT 11.1 INR 1.0 APTT 32 Sodium 136 L Potassium 4.1 Chloride 100 Carbon Dioxide 32 BUN 14 Creatinine 0.80 Estimated GFR > 60.0 BUN/Creatinine Ratio 17.5 Glucose 103 H Calcium 9.4 Total Bilirubin 0.6 AST 33 ALT 28 Alkaline Phosphatase 78 Total Protein 6.9 Albumin 4.3 Globulin 2.6 Albumin/Globulin Ratio 1.7 COVID-19 PCR 10/20/19 13:15 WBC RBC Hgb Hct MCV MCH MCHC RDW Plt Count Neut % (Auto) Lymph % (Auto) Saline % (Auto) Eos % (Auto) Baso % (Auto) Neut # (Auto) Lymph # (Auto) Saline # (Auto) Eos # (Auto) Baso # (Auto) PT INR APTT Sodium Potassium Chloride Carbon Dioxide BUN Creatinine Estimated GFR BUN/Creatinine Ratio Glucose Calcium Total Bilirubin AST ALT Alkaline Phosphatase Total Protein Albumin Globulin Albumin/Globulin Ratio COVID-19 PCR Negative Assessment & Plan Assessment & Plan narrative: Pérez Dhillon is a 54-year-old male with past medical history of hypertension, hyperlipidemia, prior CVA x2with residual left-sided weakness,ETOH abuse who started experiencing difficulty speaking per his starting 4 days ago. He is admitted for an acute CVA after a positive head CT in the emergency room. 1. Acute CVA, present on admission - MR stroke protocol. Last known normal was now 4 days ago. Patient reports 2 prior CVAs with residual left-sided weakness which is minor on my exam. He still continues to have some dysarthria. Patient has significant carotid artery stenosis per report, depending on MR stroke results may consider discussion with vascular surgery given this is his 3rd infarct. - Initial head CT with subacute infarct in the left insula and old infarctions. - Speech eval, PT/OT. Reports some trouble swallowing pills where he feels they get stuck, may need barium swallow pending speech evaluations - continue home asa/brilinta, statin - TTE ordered - continue telemetry 2. Hypertension - continue home amlodipine, HCTZ 3. Alcohol abuse - CIPR protocol, patient drinks approximately 6-12 beers per day, last drink was night prior to admission. - monitor for withdrawal 4. Hyperlipidemia - continue home statin 5. Prior seizure disorder - due to prior CVA, continue lamictal Code: Full Dispo: Admitted under inpatient status as his stay is expected to exceed 2 midnights. COVID-19 COVID-19 status: Negative Quality VTE Deep Vein Thrombosis/Pulmonary Embolism Present on Admission: No
[2019-10-20] MEDS: lamoTRIgine 100 MG TABLET 200 MG PO (20:40)
[2019-10-21] VITALS: O2SAT 97
[2019-10-21 03:00] VITALS: BP 141/75; PULSE 52; RESP 18; TEMP 36.2; O2SAT 98
[2019-10-21 05:04] VITALS: O2SAT 98
[2019-10-21 06:05] LABS: UR Morphine/Opiate cutoff 300 Negative (Negative); Ur Creatinine Normal (Normal); Ur Specific Gravity Normal (Normal); Urine Amphetamines Negative (Negative); Urine Barbiturates Negative (Negative); Urine Benzodiazepines Negative (Negative); Urine Cocaine Negative (Negative); Urine MDMA Negative (Negative); Urine Methadone Negative (Negative); Urine Methamphetamines Negative (Negative); Urine Phencyclidine Negative (Negative); Urine Tetrahydrocannabinol Negative (Negative); Urine pH Normal (Normal)
[2019-10-21 06:06] LABS: Urine Oxycodone Negative (Negative); Urine Tricyclic Antidepressant Negative (Negative)
[2019-10-21 06:12] LABS: Add Manual Diff / Slide Review NO; Basophils Absolute Auto 0 /uL (0-100); Basophils Percent Auto 0.6 % (0-2); Eosinophils Absolute Auto 400 /uL (0-450); Eosinophils Percent Auto 7.1 % (2-4); Hematocrit 40.3 % (41-53); Hemoglobin 13.7 g/dL (13.5-17.5); Lymphocytes Absolute Auto 1700 /uL (1100-4500); Lymphocytes Percent Auto 26.7 % (25-40); Mean Corpuscular Hemoglobin 33.9 PG (26-34); Mean Corpuscular Volume 99.9 fL (80-100); Monocytes Absolute Auto 500 /uL (0-900); Monocytes Percent Auto 8.4 % (3-14); Neutrophils Absolute Auto 3600 /uL (1500-7000); Neutrophils Percent Auto 57.2 % (50-75); Platelet Count 323 X10^3/uL (150-400); Red Blood Cell Count 4.03 X10^6/uL (4.5-5.9); Red Cell Distribution Width 13.5 % (11.6-14.8); White Blood Cell Count 6.3 X10^3/uL (4.5-11.0)
[2019-10-21 06:29] LABS: BUN Creatinine Ratio 15.5 (6-22); Blood Urea Nitrogen 13 mg/dL (9-20); Calcium 9.3 mg/dL (8.4-10.2); Carbon Dioxide 32 mmol/L (22-32); Chloride 100 mmol/L (98-107); Cholesterol 125 mg/dL (140-199); Estimated Glomerular Filt Rate > 60.0 mL/min (>60); Glucose 100 mg/dL (70-100); HDL Cholesterol 62 mg/dL (40-60); HEMOLYSIS < 15 (0-50); LDL Cholesterol Calculated 54 mg/dL (<100); Potassium 3.9 mmol/L (3.4-5.1); Sodium 135 mmol/L (137-145); Triglycerides 46 mg/dL (35-150)
[2019-10-21 06:34] LABS: Hemoglobin A1C% w Est Avg Glu 5.5 % (4.0-6.0)
[2019-10-21 07:55] VITALS: BP 135/76; PULSE 53; RESP 16; TEMP 36.4; O2SAT 98
[2019-10-21] MEDS: ATORVASTATIN 20 MG TABLET 40 MG PO (10:29)
[2019-10-21] MEDS: ASPIRIN EC 81 MG TABLET PO (10:29)
[2019-10-21] MEDS: ENOXAPARIN 40 MG/0.4 ML SYRINGE SUBCUT (10:29)
[2019-10-21] MEDS: hydroCHLOROthiazide 25 MG TABLET PO (10:29)
[2019-10-21] MEDS: CITALOPRAM 20 MG TABLET 40 MG PO (10:29)
[2019-10-21] MEDS: AMLODIPINE 5 MG TABLET PO (10:29)
[2019-10-21] MEDS: lamoTRIgine 100 MG TABLET 200 MG PO (10:30)
--- NOTE | 2019-10-21 11:04 | PT.IIE ---
Current Diagnoses Cerebral infarction, unspecified (10/20/19) Surgical History (Last Updated 10/20/19 @ 20:19 by Marcelino Moya DO) H/O carotid endarterectomy (Acute) Medical History (Last Reviewed 10/20/19 @ 10:04 by Eva Bragg MD) HTN (hypertension) (Acute) Hyperlipidemia (Acute) Stroke (Acute) Physical Therapy Inpatient Evaluation/Re-Eval M1 PT/OT-IP Prior Functional Status Start: 10/21/19 08:14 Freq: NEEDED Status: Active Protocol: Document 10/21/19 10:37 (Rec: 10/21/19 11:04 [email or web address]) Medical Review Prior Functional Status Medical History Reviewed Yes Diet/Fluid Consistency Regular Communication no deficits noted. able to make needs known Mobility and Gait independent with mobility without AD Activities of Daily Living and IADL's independent with ADLs and IADLs. Prior Functional Level (Other details) Pt had prior CVA x 2 that gives him residual LUE weakness. Pt stated he has weakness and fine motor control deficits on L UE since his stroke from 2004 but he is able to function well but increased time taken occasionally. Social History Household Members spouse,children Living Arrangements House Number of Floors (Floors) Two Floors Number of Stairs To Enter/Railing? 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 Per EMR, pt has ETOH abuse who drinkes 6-12 beers a day and a current smoker. Pt stated he participated in therapy before for his L arm but it seemed not that helpful. Pt has significant carotid artery stenosis per report, depending on MR stroke results may consider discussion with vascular surgery given this is his 3rd infarct M2 PT-IP Current Condition Start: 10/21/19 08:14 Freq: NEEDED Status: Active Protocol: Document 10/21/19 10:37 HH (Rec: 10/21/19 11:04 [email or web address]) Physical Therapy Current Condition Current Condition Evaluation Date 10/21/19 Treatment Diagnosis TIA, LUE weakness, dysathria Onset Date couple days ago Weight Bearing Status Weight Bearing Status Full Weight Bearing M3 PT-IP Subjective Start: 10/21/19 08:14 Freq: NEEDED Status: Active Protocol: Document 10/21/19 10:37 HH (Rec: 10/21/19 11:04 [email or web address]) Subjective Physical Therapy Visit Type Type Initial Evaluation Visit Start Time 09:20 Visit Stop Time 09:45 Total Visit Minutes 25 Number of VIDEOTAPE EDITOR Visits 0 Physical Therapy Visit Comments Patient Comments Im doing okay and my speech is getting better. Patient Goals to return home once he is medically stable M4 PT-IP Mobility and Gait Start: 10/21/19 08:14 Freq: NEEDED Status: Active Protocol: Document 10/21/19 10:37 HH (Rec: 10/21/19 11:04 [email or web address]) PT-Transfer Assessment Sit to and From Stand Sit to and from Stand Independent Equipment Transfer Assistive Device None Transfers Transfer Destination Chair Transfer Technique Stand Step Pivot Transfer Ability Level of Assist Independent Comments Mobility Comments Pt was up in chair after he went to bathroom with LAST PULLER upon PT arrival. BP at 135/76 Denies any discomfort and increased weakness. Pt sat up in chair and had neuro- assessment with this PT. See below for findings. After assessment, pt then stood up without using UEs and amb with PT for half of the AC unit. He does show very minor ataxic gait with uneven step length and width but he stated this is normal possibly d/t his ETOH abuse. Pt is steady overall and no LOB noted. He completed stair climbing with SBA and returned to his room chair with SBA and no AD. BP 119/67 in seated. no discomfoted noted. Call light placed within reach. Gait Assessment Gait Gait Assistance Required: Standby Assistance Distance (Feet) 280 Able to Maintain Weight Bearing Status Yes During Gait Assistive Devices Assistive Device None Orthotic/Prosthetic Devices or Brace: No Gait Deviations General Gait Pattern Ataxic,Decreased Stride Length ,Decreased Feet Clearance Factors Limiting Gait Function Factors Limiting Gait Function Decreased Activity Tolerance, Decreased Strength,Limited Range of Motion Comments Gait Comments see mobility comments Stair Climbing Assessment Evaluation Level of Assist On Stairs Standby Assistance Devices Stair Climbing Assistive Devices Right Railing Technique/Endurance Stair Climbing Direction Ascend and Descend Stair Climbing Technique Step Over Step Number of Steps Climbed 10 Query Text: Stair Climbing Set # Repetitions (reps) 2 Comments Stair Climbing Comments pt completed stair climbing at AC unit entrance. He was able to use step over pattern with L rail to descend followed by R rail to ascend. No LOB noted but slight SOB. Denies discomfort. PT-Balance Assessment Sitting Balance and Reactions Static Sitting Balance Ability Normal Dynamic Sitting Balance Ability Normal Standing Balance and Reactions Static Standing Balance Ability Normal Dynamic Standing Balance Ability Good Device Used none Comments Other Balance Tests/Deviations/Treatment excessive sway noted for : dynamic balance reaching. M5 PT-IP Objective Assessments Start: 10/21/19 08:14 Freq: NEEDED Status: Active Protocol: Document 10/21/19 10:37 (Rec: 10/21/19 11:04 [email or web address]) Orientation Orientation/Cognition Level of Alertness Alert Orientation Name,Age,Birthday,Month,Date, Year,Day of Week,Place, Situation Language Function Ability No Deficits Noted,Garbled Speech Safety Awareness Understands Safety Issues Memory Description No Deficits Noted Comments pt's speech is understandable but pronounciation seems to be slightly impaired. word salad noted as the sentence progresses. Gross Range of Motion Upper Extremity ROM Assessment Within Functional Limits Lower Extremity ROM Assessment Within Functional Limits Strength Upper Extremity Strength Assessment Left Impaired Shoulder 4-/5 Elbow 4-/5 Wrist 4-/5 Hand 4-/5 Lower Extremity Strength Assessment Within Functional Limits Coordination Assessment Gross Coordination Gross Coordination Impaired Assessment Finger to Nose Test Minimal Impairment Pronation/Supination Test Minimal Impairment Foot Tapping Test Normal Performance Heel on Amaya Test Normal Performance Coordination Comments increased time taken and overshoot for finger to nose and pronation /supination test finger opposition = increased time taken and overshoot noted . Sensation Assessment Sensation Gross Sensation WNL Light Touch Intact Proprioception (Position) Intact Muscle Tone Muscle Tone WNL No Muscle Tone Location Left Upper Extremity Type of Tone Hypotonicity Severity of Tone Mild Comments Muscle Tone Comments hypertonic for elbow flexors and extensors on L Other Assessments Other Other Assessments saccades, pursit, VOR = WNL M6 PT-IP Treatment Start: 10/21/19 08:14 Freq: NEEDED Status: Active Protocol: Document 10/21/19 10:37 (Rec: 10/21/19 11:04 [email or web address]) Physical Therapy Treatment Education Education Provided Safety M7 PT-IP Assessment and Plan Start: 10/21/19 08:14 Freq: NEEDED Status: Active Protocol: Document 10/21/19 10:37 (Rec: 10/21/19 11:04 [email or web address]) PT Summary Assessment and Plan Potential Rehabilitation Potential Excellent Status of Condition at Evaluation Stable Summary Progress Towards Goals Safe For Discharge Assessment Summary This is a low complexity evaluation for this 54yo male with acute CVA with subacute infarct in the left insula and old infarctions. PMH of hypertension, hyperlipidemia, prior CVA x2with residual left -sided weakness,ETOH abuse who started experiencing difficulty speaking per his starting 4 days ago. Upon assessment, pt's speech is understandable but pronunciation seems to be slightly impaired. word salad noted as the sentence progresses. Slight weakness noted on L arm and impaired coordination noted for finger to nose test, supination pronation and finger opposition test. Pt stated that he is not sure if thats from baseline / new but overall his RUE is WFL with slight increased time taken. His mobility is unremarkable. Pt might benefit from skilled outpatient OT to address his L UE functional mobility and strength. Otherwise, pt is safe to be d/c home at this point. Frequency of Treatment Frequency Of Treatment Discharge Recommendations To Nursing Amount of Assist Needed Standby Assistance Discharge Recommendations PT Discharge Recommendations Home Other Discharge Recommendations Pt might benefit from skilled outpatient OT to address his L UE functional mobility and strength. Otherwise, pt is safe to be d/c home at this point. Transportation Needs at Discharge Private Vehicle
[2019-10-21 11:16] VITALS: BP 156/77; PULSE 66; RESP 16; TEMP 37; O2SAT 98
--- NOTE | 2019-10-21 11:17 | OT.IP.EVAL ---
Current Diagnoses Cerebral infarction, unspecified (10/20/19) Past Medical History (Last Reviewed 10/20/19 @ 10:04 by Eva Bragg MD) HTN (hypertension) (Acute) Hyperlipidemia (Acute) Stroke (Acute) Surgical History (Last Updated 10/20/19 @ 20:19 by Marcelino Moya DO) H/O carotid endarterectomy (Acute) Occupational Therapy Inpatient Evaluation/Re-Eval M1 PT/OT-IP Prior Functional Status Start: 10/21/19 08:14 Freq: NEEDED Status: Active Protocol: Document 10/21/19 10:37 [facility] (Rec: 10/21/19 11:04 [id number]) Medical Review Prior Functional Status Medical History Reviewed Yes Diet/Fluid Consistency Regular Communication no deficits noted. able to make needs known Mobility and Gait independent with mobility without AD Activities of Daily Living and IADL's independent with ADLs and IADLs. Prior Functional Level (Other details) Pt had prior CVA x 2 that gives him residual LUE weakness. Pt stated he has weakness and fine motor control deficits on L UE since his stroke from 2004 but he is able to function well but increased time taken occasionally. Social History Household Members spouse,children Living Arrangements House Number of Floors (Floors) Two Floors Number of Stairs To Enter/Railing? 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 Per EMR, pt has ETOH abuse who drinkes 6-12 beers a day and a current smoker. Pt stated he participated in therapy before for his L arm but it seemed not that helpful. Pt has significant carotid artery stenosis per report, depending on MR stroke results may consider discussion with vascular surgery given this is his 3rd infarct M1 PT/OT-IP Prior Functional Status Start: 10/21/19 16:01 Freq: NEEDED Status: Active Protocol: Document 10/21/19 10:08 [facility] (Rec: 10/21/19 16:18 [facility] [id number]) Medical Review Prior Functional Status Medical History Reviewed Yes Diet/Fluid Consistency Regular Communication no deficits noted. able to make needs known Mobility and Gait independent with mobility without AD Activities of Daily Living and IADL's independent with ADLs and IADLs. Prior Functional Level (Other details) Pt had prior CVA x 2 that gives him residual LUE weakness. Pt stated he has weakness and fine motor control deficits on L UE since his stroke from 2004 but he is able to function well but increased time taken occasionally. Social History Household Members spouse,children Living Arrangements House Number of Floors (Floors) Two Floors Number of Stairs To Enter/Railing? 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 Per EMR, pt has ETOH abuse who drinkes 6- 12 beers a day and a current smoker. Pt stated he participated in therapy before for his L arm but it seemed not that helpful. Pt has significant carotid artery stenosis per report, depending on MR stroke results may consider discussion with vascular surgery given this is his 3rd infarct M2 OT-IP Current Condition Start: 10/21/19 16:01 Freq: Status: Active Protocol: Document 10/21/19 10:08 [facility] (Rec: 10/21/19 16:18 [facility] [id number]) Occupational Therapy Current Condition Current Condition Evaluation Date 10/21/19 Treatment Diagnosis Acute/subacute ischemia in left centrum semiovale Diagnosis Onset Date 10/20/19 M3 OT- IP Subjective and Pain Start: 10/21/19 16:01 Freq: Status: Active Protocol: Document 10/21/19 10:08 [facility] (Rec: 10/21/19 16:18 [facility] [id number]) OT- Subjective Occupational Therapy Visit Type Type Initial Evaluation Visit Start Time 10:08 Visit Stop Time 11:17 Total Visit Minutes 69 Occupational Therapy Visit Comments Patient Comments Pt agreed to get up for OT eval. Patient/Caregiver Goals To go home. OT Pain Assessment Pain When Pain Assessed At Rest Pain Present Pain Present Denied Pain M4 OT- IP ADL's Start: 10/21/19 16:01 Freq: Status: Active Protocol: Document 10/21/19 10:08 [facility] (Rec: 10/21/19 16:18 [facility] [id number]) OT [id number] Comments OT Self-Feeding Comments Not at meal time. OT ADL-Grooming Comments OT Grooming Comments Pt states already performed earlier. OT ADL-Dressing General Eval Lower Body Dressing Ability Standby Assistance Comments OT Dressing Comments SBA for socks at the edge of the bed. OT ADL-Toileting Comments OT Toileting Comments Pt not having to go. OT ADL-Bathing Comments OT Bathing Comments Pt not wanting to shower here. M5 OT- IP IADL's Start: 10/21/19 16:01 Freq: Status: Active Protocol: Document 10/21/19 10:08 [facility] (Rec: 10/21/19 16:18 [facility] [id number]) OT-Instrumental Activities of Daily Living Home Safety Awareness Ability to Problem Solve Emergency Able to Problem Solve Situations Home Safety Comments Pt able to answer all home safety questions with good accuracy. Medication Management Medication Management Comments Pt states sets up his medications for him. Money Management Money Management Caregiver Provides Assistance Driving Driving Concerns Identified Regarding Safety M6 OT- IP Functional Cognition Start: 10/21/19 16:01 Freq: Status: Active Protocol: Document 10/21/19 10:08 [facility] (Rec: 10/21/19 16:18 [facility] [id number]) Cognitive Factors Limiting Selfcare Function Cognitive Ability Level of Alertness Alert Patient Orientation Name,Place,Situation Attention Span Ability Capable of Focused Attention, Capable of Sustained Attention Ability to Follow Commands Able to Follow One Step Commands Memory Description Short Term Impaired Safety Awareness Underestimates Need for Assistance Problem Solving Ability No deficits Noted Executive Function Ability Unable to Organize Plans, Unable to Remember Details Cognitive Tests ACL Pt scored 4.6 out of 6.0 which implies pt may live alone with daily assistance to monitor personal safety, assist with meds, bills, and may need reminders to do house hold chores, and assist to monitor nutrition and go to appointments. 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 Pt however did states able to call his neighbor to assist for grocery shopping if needed. Cognitive Comments Cognitive Assessment Comments Pt scored 427 seconds and max vc to help get through trail making Part B which a score of more than 180seconds implies someone would be more apt to get into a car accident. The assessment looks at visual attention, task switching, mental flexibility, speed of processing, and executive function. Pt score of 427 seconds implies severe impairment for the above. During the assessment pt had trouble to identifying and remembering which number or letters would come next. Pt having word finding difficulties when trying to tell therapist during light touch where he was touched on his arms. OT- Vision and Hearing OT- Hearing Assessment OT- Hearing Assessment WFL OT- Vision Assessment Visual Acuity WFL M7 OT- IP Mobility and Balance Start: 10/21/19 16:01 Freq: Status: Active Protocol: Document 10/21/19 10:08 [facility] (Rec: 10/21/19 16:18 [facility] [id number]) OT-Transfer Assessment Sit to and From Stand Sit to and from Stand Independent Transfers Transfer Ability Independent Technique Transfer Destination Chair OT- Balance Assessment Sitting Balance and Reactions Static Sitting Balance Ability Normal Dynamic Sitting Balance Ability Normal Standing Balance and Reactions Static Standing Balance Ability Normal M8 OT- IP Objective Assessments Start: 10/21/19 16:01 Freq: Status: Active Protocol: Document 10/21/19 10:08 [facility] (Rec: 10/21/19 16:18 [facility] [id number]) OT Gross Range of Motion Upper Extremity Range of Motion Assessment Within Functional Limits OT Strength Comments Strength Comments BUE strength 4/5 to 4+/5 form proximal to distal. OT- Coordination Assessment Upper Extremity Finger to Nose Test Right UE Impaired Comments Coordination Comments Mildy impaired for right finger initially. 9 hole peg test, unable to pick remover pegs with left hand and right hand 48 seconds which list him far below the 10th percentile. OT-Muscle Tone Assessment Muscle Tone WNL Yes OT Sensation Assessment Comments Summary Comments Pt notes prior at time bumps into object on the left side. M9 OT- IP Assessment and Plan Start: 10/21/19 16:01 Freq: Status: Active Protocol: Document 10/21/19 10:08 [facility] (Rec: 10/21/19 16:18 [facility] [id number]) OT Summary Assessment and Plan Potential Rehabilitation Potential Good Analytic Complexity at Evaluation Low Summary OT Impairments Functional Cognition Goals Shower Transfer Goal Independent Days to Meet Goals 1 Frequency of Treatment Frequency Of Treatment Once a Day Treatment Plan OT Treatment Plan ADL Training,Functional Cognition Training,Patient/ Family Education,Discharge Planning Other Treatment Recommendations and Next Shower if still here. Treatment Focus Recommend initially to have be at home initially to be able to fully assess his safety for cooking and problem solving needs at home. Suggested outpt OT for coordination and higher level cognitive needs, pt refusing at this time. In addition strongly suggested no driving as well. Discharge Recommendations OT Discharge Recommendations Home with Assistance, outpt OT Transportation Needs at Discharge Private Vehicle
--- NOTE | 2019-10-21 12:33 | PC.NURSE ---
CIWA 0; NIH 4 with dysarthria, left-sided weakness. Coversite drsg applied to left elbow. D/C instructions included education related to 12-step programs; social support systems; smoking cessation; s/sx of stroke with BE FAST; f/u care; Rx medications; present for all d/c education; @ 1235 pt d/c via wheelchair to personal vehicle with personal belongings in hand; instructed to drive due to patient risk factors of cognition
--- NOTE | 2019-10-21 12:44 | CM.DANOTE ---
DCP assessment: EMR reviewed:patient is a 54 yr old male who was admitted for possible stroke. Patients PCP is Dr Isidro Brown. CM/RN met with patient at the bedside and explained role. Patient was alert and oriented x3 at time of CM/RN visit. Patient currently lives in a single family home with his and 11 yr old child. Patient has had several strokes before and struggles with left sided weakness. patient states he is ready to go home and feels he will be fine to D/C home with his today. Patient stated he is Independent with all ADLs and drives [place]. patient plans on having his pick him up at d/c and bring him home. Patient has can and FWW at home but does not use them an a regular basis. I: [employer] and Self pay Plan: D/C home today with when medically cleared. No D/C planning needs noted at this time but CM will be available to assist with any D//c planning needs that may arise. Kyleigh Martini RN Discharge Planning/Care Management CM Discharge Assessment Start: 10/21/19 12:42 Freq: Status: Discharge Protocol: Document 10/21/19 12:43 [facility] (Rec: 10/21/19 12:44 HS [id number]) Discharge Planning Assessment Assigned [employer] Architect Kyleigh Martini RN DPOA/Assigned Designee Name Adore Dhillon () Contact Information [phone] Advance Directives? No History Provided By Family Member Has Patient been admitted in last 30 No days? Prior Living Arrangements House Household Members spouse,children Type of transporation used prior to Drives own vehicle admit Independent with ADL's Yes Is patient alert and oriented? Yes Caregiver for Another Yes: has an 11 year old child DME Already Rented / Owned Cane Patient/Family Preference OP PT Therapy,OP OT Therapy Barriers to Discharge No Discharge Plan Home Referrals Initiated None needed Whiteboard Updated in Patient Room with Yes name and ext. # of [employer] Middle[employer] Architect Review Status In Process Next Review Type Continued Stay Review
--- NOTE | 2019-10-21 12:53 | ST.IPTN ---
Visit Care Team Role Provider Type Stephanie Felix MD Primary Care Provider Non-Staff Address: [address] [place] [address], [id number] Eva Bragg MD Emergency Provider Physician Referring Provider Address: [address] [place] [address], [id number] Marcelino Moya DO Admit Provider Physician Attending Provider Address: [address] [place] [address], [id number] CORE LOADER Treatment Note CORE LOADER Treatment Note Start: 10/20/19 16:20 Freq: Status: Active Protocol: Document 10/21/19 12:11 [facility] (Rec: 10/21/19 12:53 [id number]) Speech Pathology Treatment Note Session Time Visit Start Time 11:30 Visit Stop Time 11:50 Total Visit Minutes 20 Setting Treatment Setting Acute Care Visit Type Note Type Treatment Note General Information General Information 54-year-old gentleman with a history of 2 prior strokes, hypertension, hyperlipidemia, seizures after the strokes presents with 4 days of increasing dysarthria and his feels that his gait is a bit more unsteady. Initial ST assessment yesterday indicated mild-moderate dysarthria and at times was difficult to understand. When asked to repeat, his accuracy and intelligibility improved. Subjective Identification Type Name,ID Wristband Others Present Family Observations/Patient Presentation Pt was seated in bedside chair with his present in the room. Mild left facial droop noted. Both pt and his reported improvement in pt's speech. Chief Complaint(s) Speech Patient Knowledge/Awareness of CORE LOADER Role Excellent in Treatment Parent/Caretake Knowledge/Awareness of Excellent CORE LOADER Role in Treatment Objective Short Term Goals Pt and caregiver will participate in education re: speech sound production and oral motor exercises. [ End ] Snf Goals Pt will follow through with home exercise program ( exercises 3x daily) to improve speech intelligibility Treatment Activities Tongue protrusion indicated a slight curve to the left side. ROM for lateralization of the tongue is limited. Using tongue depressor, resistance was applied to the tongue. The pt had mild mild to moderate strength to resist the tongue blade. Lip and jaw strength WFL. Demonstrated lingual strengthening exercises to pt and . Also instructed pt to speak more slowly and open his mouth more to improve intelligibility. Pt was able demonstrate technique. observed the session. Assessment Patient Response to Treatment Good Rehab Potential Fair Impairments Identified Dysarthria,Speech Intelligibility Assessment of Overall Progress Improving Reviewed with Patient Home Exercise Program Patient/Caregiver Understanding Good Plan Comment Recommend out patient speech therapy Therapeutic Contents Home Exercise Program,Oral Motor Training
--- NOTE | 2019-10-21 13:13 | P.DS_ITS ---
History of Present Illness History of Present Illness Chief complaint: thinks he had a tia Narrative: Pérez Dhillon is a 54-year-old male with past medical history of hypertension, hyperlipidemia, prior CVA x2with residual left-sided weakness,ETOH abuse who started experiencing difficulty speaking per his starting 4 days ago. thought his speaking was getting worse ultimately decided to bring him into the emergency room. He has chronic left upper extremity weakness from his prior stroke and denies any recent new weakness or difficulty ambulating. did not see facial asymmetry or facial droop. He denies any headache, palpitations, chest pain, shortness of breath, cough, nausea, vomiting, ab dominal pain, diarrhea, lower extremity swelling. He does not have any trouble swallowing food or water, but states that sometimes it feels like his medications gets stuck in the middle of his chest. He does drink nightly, consuming approximately 6-12 beers per night. He does have a history of alcohol withdrawals, but no seizures from the withdrawal or intubations for alcohol withdrawal. He was placed on Lamictal after a seizure from one of his prior strokes. In the emergency room, initial vital signs were unremarkable, and initial laboratory studies were also unremarkable. COVID-[address] head revealed a possible subacute infarction in the left insula. Patient was admitted under inpatient status for an acute CVA. Discharge Providers Provider Date of admission: 10/20/19 12:59 Discharge Date: 10/21/19 Primary care physician: Stephanie Felix MD Consults: 10/20/19 13:44 Consult to Speech Therapy Evaluate & Treat Comment: Physician Instructions: Evaluate and treat 10/20/19 20:02 Consult to Occupational Therapy Evaluate & Treat Comment: Physician Instructions: Evaluate and treat Consult to Physical Therapy Evaluate & Treat Comment: Physician Instructions: Evaluate and Treat Discharge provider: Mervin Aguilar MD Summary Hospital Course Discharge Diagnosis: 1. Acute CVA 2. Alcohol dependency 3. Nicotine cigarette dependency 4. Hypertension 5. Hyperlipidemia 6. Chronic internal and external carotid atherosclerosis Hospital Course: Patient was admitted due to new CVA causing acute speech impairment. MR showed punctate areas of restrictive diffusion consistent with acute/subacute ischemia in the left centrum semiovale. There is high-grade stenosis/occlusion of origin of the right external carotid artery, high-grade stenosis/occlusion within focal segment of proximal left external artery, and long segment stenosis/occlusion within proximal left internal carotid artery with distal reconstitution. Patient has history of right CEA done by vascular surgeon at [facility]. He has also had a catheter procedure previously on the left side. Unclear if he is candidate for any further vascular intervention. He had relatively recent past echo in December 2018. His telemetry did not show episodes of atrial fibrillation. He is already on aspirin and Brilinta. His LDL is 54 on statin. His blood pressures are well controlled. Unfortunately he continues to abuse alcohol and smoke cigarettes which are his big risk factors for recurrent events. He is counseled on alcohol and smoking cessation. Patient had near resolution of speech impairment prior to discharge. He was evaluated by PT/OT. He did not perform well on visual motor skills and at increased risk of getting into a car accident. He is counseled against driving if possible and if he has to drive then to limit to short distances within town. Patient's spouse was similarly advised regarding his risk of driving. Status at Discharge Cognitive/behavioral status at discharge: oriented Functional status at discharge: independent ambulation Overall status at discharge: patient is back to baseline Time Spent with Patient Time spent: Greater than 30 minutes Exam Vital Signs (past 8 hours): - 10/21/19 07:55 10/21/19 11:16 Temperature 97.6 F 98.6 F Pulse Rate 53 L 66 Respiratory Rate 16 16 Blood Pressure 135/76 156/77 H Pulse Oximetry 98 98 Oxygen Delivery Method Room Air Oxygen Flow Rate 0 Objective Labs Result Diagrams: 10/21/19 05:44 10/21/19 05:44 Labs: Laboratory Results - last 24 hr 10/20/19 10/21/19 10/21/19 13:15 05:44 05:44 WBC 6.3 RBC 4.03 L Hgb 13.7 Hct 40.3 L MCV 99.9 MCH 33.9 MCHC 34.0 RDW 13.5 Plt Count 323 Neut % (Auto) 57.2 Lymph % (Auto) 26.7 [place] % (Auto) 8.4 Eos % (Auto) 7.1 H Baso % (Auto) 0.6 Neut # (Auto) 3600 Lymph # (Auto) 1700 [place] # (Auto) 500 Eos # (Auto) 400 Baso # (Auto) 0 Sodium 135 L Potassium 3.9 Chloride 100 Carbon Dioxide 32 BUN 13 Creatinine 0.84 Estimated GFR > 60.0 BUN/Creatinine Ratio 15.5 Glucose 100 Hemoglobin A1c Calcium 9.3 Triglycerides 46 Cholesterol 125 L LDL Cholesterol, Calc 54 HDL Cholesterol 62 H TSH U Opiates 300ng/mL cut Ur Oxycodone Screen Urine Methadone Screen Ur Barbiturates Screen U Tricyclic Antidepress Ur Phencyclidine Scrn Ur Amphetamines Screen U Methamphetamines Scrn Ur MDMA Scrn (Ecstasy) U Benzodiazepines Scrn Urine Cocaine Screen U Marijuana (THC) Screen COVID-19 PCR Negative 10/21/19 10/21/19 10/21/19 05:44 05:44 05:55 WBC RBC Hgb Hct MCV MCH MCHC RDW Plt Count Neut % (Auto) Lymph % (Auto) [place] % (Auto) Eos % (Auto) Baso % (Auto) Neut # (Auto) Lymph # (Auto) [place] # (Auto) Eos # (Auto) Baso # (Auto) Sodium Potassium Chloride Carbon Dioxide BUN Creatinine Estimated GFR BUN/Creatinine Ratio Glucose Hemoglobin A1c 5.5 Calcium Triglycerides Cholesterol LDL Cholesterol, Calc HDL Cholesterol TSH 1.30 U Opiates 300ng/mL cut Negative Ur Oxycodone Screen Negative Urine Methadone Screen Negative Ur Barbiturates Screen Negative U Tricyclic Antidepress Negative Ur Phencyclidine Scrn Negative Ur Amphetamines Screen Negative U Methamphetamines Scrn Negative Ur MDMA Scrn (Ecstasy) Negative U Benzodiazepines Scrn Negative Urine Cocaine Screen Negative U Marijuana (THC) Screen Negative COVID-19 PCR Discharge Plan Discharge Plan Patient Disposition: Home Discharge comment: You were admitted due to new stroke. You are already on appropriate medications. You should stop alcohol intake and smoking. Discharge orders & Medications Prescriptions: Continued atorvastatin 40 mg tablet 40 mg PO DAILY RF: 0 citalopram 40 mg tablet 40 mg PO DAILY RF: 0 amlodipine 5 mg tablet 5 mg PO DAILY RF: 0 aspirin 81 mg tablet,delayed release (DR/EC) 81 mg PO DAILY RF: 0 Brilinta 90 mg tablet 90 mg PO [id number] RF: 0 lamotrigine 200 mg Tablet 200 mg PO BID RF: 0 hydrochlorothiazide 25 mg tablet 25 mg PO DAILY RF: 0 Follow up/Referrals: Stephanie Felix MD [Primary Care Provider] - Discharge Health Status Multidrug resistant organism: No MDRO Diet/Activity/Treatments Diet: Diet as Tolerated Visit Report/Discharge Packet Instructions: DI for Stroke-Ischemic Visit Report Forms: Patient Portal/API, Stroke Signs & Symptoms Discharge Data Primary Care Provider: Stephanie Felix Discharges patient from system. Discharge Date/Time: 10/21/19 12:36 Quality VTE Deep Vein Thrombosis/Pulmonary Embolism Present on Admission: No
== END 2019-10-21 12:36 | disposition home or self-care (01) | DRG 65 ==
LOC: ED 12:52 → AC 13:00
PROVIDERS: Admitting Provider Internal Medicine; Emergency Provider Emergency Medicine; PCP Family Medicine; Referring Provider Emergency Medicine; Visit Provider Internal Medicine
DX: I63.9 Cerebral infarction, unspecified (principal); I69.354 Hemiplegia and hemiparesis following cerebral infarction affecting left non-dominant side; G40.802 Other epilepsy, not intractable, without status epilepticus; R47.1 Dysarthria and anarthria; I69.398 Other sequelae of cerebral infarction; I10 Essential (primary) hypertension; E78.5 Hyperlipidemia, unspecified; F17.210 Nicotine dependence, cigarettes, uncomplicated; F10.20 Alcohol dependence, uncomplicated; I65.29 Occlusion and stenosis of unspecified carotid artery
CPT/HCPCS: 36415; 70450; 70548; 70553; 80048; 80053; 80061; 80305; 81003; 82962; 83036; 84443; 85025; 85610; 85730; 87635; 92507; 92522; 93005; 96360; 96361; 97161; 97165; 97530; 99284; A9579; J1650

== ENCOUNTER 2022-07-13 10:01 | Inpatient (IN) | payer OTHER, SELFPAY ==
[2019-10-20 14:25] VITALS: BMI 22.8
[2022-07-13] VITALS (40 sets, daily range): BP systolic 141–230; BP diastolic 69–110; PULSE 56–73; RESP 15–35; TEMP 36.7–36.9; O2SAT 94–99; BMI 22.6; BMI 21.4
--- NOTE | 2022-07-13 10:14 | DI.RAD.S_ITS ---
PROCEDURE: XR CHEST 1V INDICATIONS: Possible stroke TECHNIQUE: One view of the chest was acquired. COMPARISON: None. FINDINGS: Surgical changes and devices: None. Lungs and pleura: Lungs are clear. No pleural effusions or pneumothorax. Mediastinum: Mediastinal contours appear normal. Heart size is normal. Bones and chest wall: No suspicious bony lesions. Overlying soft tissues appear unremarkable. IMPRESSION: No evidence acute pulmonary process. Dictated by: Anup Child M.D. on 07/13/2022 at 10:36 Approved by: Anup Child M.D. on 07/13/2022 at 10:36
--- NOTE | 2022-07-13 10:15 | DI.CT.S_ITS ---
PROCEDURE: CT STROKE INDICATIONS: left weak, unable to ambulate, h/o carotid blockage TECHNIQUE: Noncontrast 4.5 mm thick angled axial sections acquired from the foramen magnum to the vertex, with coronal reformats. For radiation dose reduction, the following was used: automated exposure control, adjustment of mA and/or kV according to patient size. COMPARISON: [facility], CT, CT HEAD/BRAIN WO CON, 10/20/2019, 10:05. [facility], CT, CT HEAD/BRAIN WO CON, 01/26/2019, 14:15. MR, MR STROKE, 10/20/2019, 14:23. FINDINGS: Image quality: Excellent. CSF spaces: Basal cisterns are patent. No extra-axial fluid collections. The ventricles are symmetric in size and shape. Brain: Encephalomalacia in the right frontal parietal lobe compatible with old MCA infarct. No intracranial bleeds or masses. There is cerebral volume loss for age, with resultant ventricular and sulcal prominence. There are periventricular and deep white matter chronic small vessel ischemic changes. There is intracranial internal carotid artery atherosclerosis. Skull and face: Calvarium and visualized facial bones appear intact, without suspicious lesions. Sinuses: Visualized sinuses and mastoids are clear. IMPRESSION: 1. No acute intracranial abnormalities. 2. Large old right MCA infarct. 3. Cerebral volume loss and chronic microvascular ischemic changes. The result was discussed with Dr. Mathur prior to dictation. This study fulfills neurological imaging criteria for inclusion or exclusion of acute stroke therapies based on available published neurological guidelines. Dictated by: Norma Gaytan M.D. on 07/13/2022 at 10:34 Approved by: Norma Gaytan M.D. on 07/13/2022 at 10:39
--- NOTE | 2022-07-13 10:15 | DI.CT.S_ITS ---
PROCEDURE: CT ANGIO HEAD AND NECK INDICATIONS: left weak, unable to ambulate, h/o carotid blockage TECHNIQUE: After the administration of intravenous contrast, 1 mm thick sections acquired from the aortic arch through the [place]. Post-contrast 4.5 mm thick sections then re-acquired from the foramen magnum to the vertex. 3-dimensional stiimga-xmpitwsey-phacynyfdd (MIP) and/or volume rendering reformats were acquired of the central intracranial vasculature and neck separately. For radiation dose reduction, the following was used: automated exposure control, adjustment of mA and/or kV according to patient size. COMPARISON: [facility], CT, CT ANGIO HEAD AND NECK, 12/29/2018, 13:27. FINDINGS: Image quality: Excellent. BRAIN: CSF spaces: Ventricles are normal in size and shape. Basal cisterns are patent. No extra-axial fluid collections. Brain: No midline shift. No intracranial bleeds or masses. [place]-white matter interface appears intact. Remote large right MCA territory infarct. Skull and face: Calvarium and facial bones appear intact, without suspicious lesions. Orbits appear normal. Sinuses: Sinuses and mastoids are clear. HEAD CT ANGIOGRAPHY: Anterior circulation: Intracranial internal carotid arteries are normal in size and flow. The flow within the paired anterior cerebral arteries is normal and symmetric. The flow within the middle cerebral arteries is normal and symmetric. The anterior communicating artery is seen. No aneurysms are seen. Posterior circulation: Visualized portions of the vertebral arteries demonstrate normal caliber, and join to form a normal appearing basilar artery. Flow within the posterior cerebral arteries is normal and symmetric. No aneurysms are seen. NECK CT ANGIOGRAPHY: Carotid system: The great vessels demonstrate a conventional anatomy as they arise from the aortic arch. 55% stenosis of the proximal right brachiocephalic artery. The origins of the common carotid arteries appear patent. There is a left common to internal carotid artery stent which demonstrates intraluminal narrowing of 70%. Bulky calcifications of the left carotid bulb, resulting in at least 39% stenosis of the proximal right internal carotid artery. Posterior circulation: The origins of the vertebral arteries both appear widely patent. The left vertebral artery is diminutive, and terminates as the PICA. Soft tissues: Visualized neck soft tissues demonstrate no suspicious abnormalities. Bones: No suspicious bony lesions. Visualized cervical spine appears normally aligned. IMPRESSION: No filling defect within the opacified intracranial or neck vasculature. At least 70% narrowing of the left internal carotid artery within the stent. This appears due to intimal hyperplasia. At least 39% stenosis of the proximal right internal carotid artery due to bulky calcifications. [place] of a remote large right MCA infarct. Any quantitative measurements of stenosis were performed using NASCET criteria. Dictated by: Joselo Muñoz M.D. on 07/13/2022 at 10:42 Approved by: Joselo Muñoz M.D. on 07/13/2022 at 10:54
--- NOTE | 2022-07-13 10:21 | ED_ITS ---
HPI - Neuro Symptoms/Deficit General Chief Complaint: Neuro Symptoms/Deficit Stated Complaint: Says stroke Time Seen by Provider: 07/13/22 10:21 Source: patient and family Mode of arrival: Ambulatory History of Present Illness HPI Narrative: This is a 57-year-old male history of prior TIA or stroke, seizure disorder on lamotrigine, aspirin 81 mg daily, hypertension, dyslipidemia and depression who comes in for confirm for stroke. Patient states he went to bed normal last night, his significant other states she saw about 7:00 p.m. he was normal at that time he states he woke up in the middle of the night and felt off balance and this morning notes he can not walk he is off balance he is got changes to his speech with dysarthria, he is got some numbness tingling on the left side with some difficulty with movement. Patient denies headache, no vision changes, no chest pain or shortness of breath. No nausea or vomiting. No other GI or urinary symptoms. He is not had any incontinence. Has had prior seizures in the past he is on lamotrigine in his been stable on that dose for couple years. His last seizure was in January and they described him as tonic-clonic type seizures. Patient states he has had an endarterectomy on the right. Sounds like he was on Brilinta for about a month and only takes a baby aspirin for ant icoagulation now. Patient denies other surgeries. No known drug allergies. He smokes about a pack per day, he drinks 4-5 alcoholic drinks daily, states he does not get withdrawal symptoms if he stops drinking. He denies THC or illicit. He states his primary care is through [facility] [employer] [facility]. He states he has not seen a neurologist in several years but did see one in the past. Patient states he did take his home morning medications including his blood pressure and his aspirin. On Anticoagulants: No ( denies) Related Data Home Medications Medication Instructions Recorded Confirmed hydrochlorothiazide 25 mg tablet 25 mg PO DAILY 12/29/18 07/13/22 lamotrigine 200 mg tablet 200 mg PO BID 12/29/18 07/13/22 aspirin 81 mg tablet,delayed 81 mg PO DAILY 01/26/19 07/13/22 release atorvastatin 40 mg tablet 40 mg PO DAILY 01/26/19 07/13/22 citalopram 40 mg tablet 40 mg PO DAILY 01/26/19 07/13/22 sertraline 50 mg tablet 50 mg PO DAILY 07/13/22 07/13/22 Allergies Allergy/AdvReac Type Severity Reaction Status Date / Time No Known Drug Allergies Allergy Verified 07/13/22 10:09 Review of Systems Review of Systems ROS Unobtainable: All systems reviewed & are unremarkable except as noted in HPI and below Hematologic/Lymphatic On Anticoagulants: No ( denies) Patient History Medical History HTN (hypertension) Hyperlipidemia Stroke Surgical History H/O carotid endarterectomy Social History household members: spouse and children Smoking Status: Current every day smoker alcohol intake: current Smoking Status: Current every day smoker alcohol intake frequency: 3 or more drinks per day Alcohol type: beer and hard liquor Substance Use Type: does not use Exam Narrative Exam Narrative: GEN: well nourished, well appearing male, alert and oriented x 3, patient appears to be in mild distress. HEENT: Atraumatic, pupils are equal round reactive to light, extraocular movements are intact, nares are clear, TMs are clear with no fluid, there is no conjunctival pallor. Throat is clear without any exudates, erythema, tonsillar enlargement or uvular deviation, mild facial droop. HEART: Regular rate and rhythm without murmur, clicks, rubs. pulses are equal in upper and lower extremities LUNGS:Lungs clear to auscultation, no wheezes, rales, crackles, chest moves symmetrically ABD:bowel sounds normal, soft, non-tender, no guarding, rebound, rigidity, no masses noted, no hepatosplenomegaly MSCL: Non-tender, no muscle atrophy, muscles strength 5/5 upper and lower extremities, full range of motion, patient does have drift. NEURO:CN 2-12 intact, sensation normal, positive for dysarthria, finger nose finger test normal, heel roy test normal. SKIN: Initial Vital Signs Initial Vital Signs: Vital Signs Temperature 98.4 F 07/13/22 10:04 Pulse Rate 73 07/13/22 10:04 Respiratory Rate 15 07/13/22 10:04 Blood Pressure 228/101 H 07/13/22 10:04 Pulse Oximetry 99 07/13/22 10:04 Oxygen Delivery Method Room Air 07/13/22 10:04 Scores NIH Stroke Scale Level of Conciousness: Alert, keenly responsive Ask month/age: Answers both questions correctly. Open/close eyes, close hand: Performs both tasks correctly Best gaze horizontal: Normal Visual john: No visual loss Facial palsy: Minor paralysis, flattened nasolabial fold, asymmetry on smiling Left arm drift: No drift for full 10 sec Right arm drift: Drifts down, not to bed Left leg drift: No drift for full 5 sec Right leg drift: No drift for full 5 sec Limb ataxia: Present in one limb Sensory on face/arms/legs: Mild to moderate sensory loss, can tell touch Best language: No aphasia, normal Dysarthria: Mild to mod,some slurring Extinction or inattention: No abnormality Total NIH Stroke scale score: 5 Course Orders Ordered: ED Orders 07/13/22 10:04 Complete Blood Count AUTO DIFF Stat Comprehensive Metabolic Panel Stat ETOH [Ethanol (ETOH)] Stat Lamotrigine Lamictal Stat Magnesium Stat PTT Partial Thromboplastin Fidel Stat Prolactin Stat Prothrombin Time INR Stat Troponin & CK Cardiac Panel Stat 07/13/22 10:14 XR chest 1V Stat EKG-12 Lead Stat 07/13/22 10:[address] angio head and neck Stat 07/13/22 10:38 COVID19 -Nasal RAPID Stat 07/13/22 12:40 UA Complete [Urinalysis and Microscopic] Stat Urine Drug Screen, Rapid Stat 07/13/22 13:50 MR head/brain wo con Stat 07/13/22 17:53 Consult to Occupational Therapy Evaluate & Treat Consult to Physical Therapy Evaluate & Treat Education, smoking cessation ONGOING 07/14/22 05:00 Basic Metabolic Panel DAILY Complete Blood Count AUTO DIFF DAILY Hemoglobin A1C% w Est Avg Glu Routine Lipid Panel Routine Magnesium DAILY TSH w/ Reflex to FT4 Routine 07/15/22 05:00 Basic Metabolic Panel DAILY Complete Blood Count AUTO DIFF DAILY Magnesium DAILY 07/16/22 05:00 Basic Metabolic Panel DAILY Complete Blood Count AUTO DIFF DAILY Magnesium DAILY Acetaminophen (Acetaminophen 325 Mg Tablet) 650 mg PO Q6H PRN PRN Reason: Fever/Mild Pain (1-3) Aspirin (Aspirin Ec 81 Mg Tablet) 81 mg PO DAILY IVAN Atorvastatin Calcium (Atorvastatin 20 Mg Tablet) 80 mg PO BEDTIME [facility] Citalopram Hydrobromide (Citalopram 10 Mg Tablet) 40 mg PO DAILY [facility] Enoxaparin Sodium (Enoxaparin 40 Mg/0.4 Ml Syringe) 40 mg SUBCUT DAILY [facility] Hydrochlorothiazide (Hydrochlorothiazide 25 Mg Tablet) 25 mg PO DAILY [facility] Labetalol HCl (Labetalol 20 Mg/4 Ml Syringe) 5 mg IV Q4HR PRN PRN Reason: SBP >220 Lamotrigine (Lamotrigine 100 Mg Tablet) 200 mg PO BID [facility] Naloxone HCl (Naloxone 0.4 Mg/Ml Vial) 0.2 mg IV Q2MIN PRN PRN Reason: Opiate Reversal Ondansetron HCl (Ondansetron 4 Mg Odt) 4 mg PO Q8HR PRN PRN Reason: Nausea And Vomiting Sertraline HCl (Sertraline 50 Mg Tablet) 50 mg PO DAILY [facility] Discontinued Medications Labetalol HCl (Labetalol 20 Mg/4 Ml Syringe) 10 mg IV NOW ONE; Protocol Stop: 07/13/22 14:47 Last Admin: 07/13/22 15:01 Dose: 10 mg Documented By: DEVON Ondansetron HCl (Ondansetron 4 Mg Odt) 4 mg SL NOW PRN PRN Reason: Nausea And Vomiting Ondansetron HCl (Ondansetron 4 Mg/2 Ml Inj) 4 mg IV NOW PRN PRN Reason: Nausea And Vomiting Vital Signs Vital signs: Vital Signs - 8 hr 07/13/22 11:00 07/13/22 11:01 07/13/22 11:01 Pulse Rate 57 L 57 L Respiratory Rate 16 15 Blood Pressure 176/80 H Pulse Oximetry 97 97 Oxygen Delivery Method 07/13/22 11:30 07/13/22 11:30 07/13/22 12:00 Pulse Rate 69 61 Respiratory Rate 24 Blood Pressure 179/104 H Pulse Oximetry 97 97 Oxygen Delivery Method 07/13/22 12:01 07/13/22 12:01 07/13/22 12:30 Pulse Rate 62 61 Respiratory Rate 18 Blood Pressure 217/91 H Pulse Oximetry 97 98 Oxygen Delivery Method 07/13/22 12:31 07/13/22 12:31 07/13/22 12:45 Pulse Rate 63 59 L Respiratory Rate 22 23 Blood Pressure 173/83 H Pulse Oximetry 99 98 Oxygen Delivery Method 07/13/22 13:00 07/13/22 13:00 07/13/22 13:15 Pulse Rate 56 L 66 Respiratory Rate 17 20 Blood Pressure 158/75 H Pulse Oximetry 97 98 Oxygen Delivery Method 07/13/22 13:30 07/13/22 13:30 07/13/22 13:45 Pulse Rate 69 63 Respiratory Rate 26 H 23 Blood Pressure 166/85 H Pulse Oximetry 97 97 Oxygen Delivery Method 07/13/22 14:00 07/13/22 14:00 07/13/22 14:02 Pulse Rate 69 68 Respiratory Rate 21 20 Blood Pressure 215/101 H Pulse Oximetry 97 98 Oxygen Delivery Method 07/13/22 14:34 07/13/22 14:35 07/13/22 14:45 Pulse Rate 66 61 Respiratory Rate 16 Blood Pressure 230/97 H Pulse Oximetry 98 98 Oxygen Delivery Method Room Air 07/13/22 15:01 07/13/22 15:00 07/13/22 15:01 Pulse Rate 60 63 Respiratory Rate 15 21 Blood Pressure 179/79 H Pulse Oximetry 97 98 Oxygen Delivery Method 07/13/22 15:01 07/13/22 15:15 07/13/22 15:30 Pulse Rate 62 Respiratory Rate 20 Blood Pressure 179/79 H 146/69 H Pulse Oximetry 97 Oxygen Delivery Method 07/13/22 15:30 07/13/22 15:45 07/13/22 16:00 Pulse Rate 57 L 57 L Respiratory Rate 15 15 Blood Pressure 141/74 H Pulse Oximetry 95 97 Oxygen Delivery Method 07/13/22 16:00 07/13/22 16:15 07/13/22 16:30 Pulse Rate 58 L 63 61 Respiratory Rate 15 17 Blood Pressure Pulse Oximetry 96 98 96 Oxygen Delivery Method 07/13/22 16:31 07/13/22 16:31 Pulse Rate 61 Respiratory Rate 17 Blood Pressure 173/77 H Pulse Oximetry 97 Oxygen Delivery Method MDM - Neuro Symptoms/Deficit Lab Data 07/13/22 10:04 07/13/22 10:04 Labs: Lab Results 07/13/22 07/13/22 07/13/22 Range/Units 10:04 10:04 10:04 WBC 6.4 (4.5-11.0) X10^3/uL RBC 4.33 L (4.5-5.9) X10^6/uL Hgb 14.4 (13.5-17.5) g/dL Hct 41.5 (41-53) % MCV 95.7 (80-100) fL MCH 33.1 (26-34) PG MCHC 34.6 (30-36) % RDW 13.1 (11.6-14.8) % Plt Count 281 (150-400) X10^3/uL Neut % (Auto) 77.7 H (50-75) % Lymph % (Auto) 13.9 L (25-40) % [place] % (Auto) 4.3 (3-14) % Eos % (Auto) 3.2 (2-4) % Baso % (Auto) 0.9 (0-2) % Neut # (Auto) 4900 (2699-1569) /uL Lymph # (Auto) 900 L (3638-2505) /uL [place] # (Auto) 300 (0-900) /uL Eos # (Auto) 200 (0-450) /uL Baso # (Auto) 100 (0-100) /uL PT 10.8 (10.1-12.7) SECONDS INR 0.9 (0.9-1.3) APTT 31 (26-36) SECONDS Sodium 139 (137-145) mmol/L Potassium 4.5 (3.4-5.1) mmol/L Chloride 106 (98-107) mmol/L Carbon Dioxide 28 (22-32) mmol/L BUN 15 (9-20) mg/dL Creatinine 0.77 (0.66-1.25) mg/dL Estimated GFR > 60 (>60) mL/min BUN/Creatinine Ratio 19.5 (6-22) Glucose 106 H (70-100) mg/dL Calcium 9.2 (8.4-10.2) mg/dL Magnesium 2.1 (1.6-2.3) mg/dL Total Bilirubin 0.4 (0.2-1.3) mg/dL AST 29 (17-59) IU/L ALT 32 (<50) IU/L Alkaline Phosphatase 65 (38-126) U/L Total Creatine Kinase 109 (55-170) U/L CK-MB (CK-2) 1.95 (<2.37) ng/mL CK-MB (CK-2) Rel Index 1.8 (1.5-5.0) % Troponin I < 0.012 (0.01-0.034) ng/mL Total Protein 7.1 (6.3-8.2) g/dL Albumin 4.3 (3.5-5.0) g/dL Globulin 2.8 (1.7-4.1) g/dL Albumin/Globulin Ratio 1.5 (1.0-2.8) Prolactin (3.7-17.9) ng/mL Urine Color Urine Appearance Urine pH (4.5-8.0) Ur Specific [place] (1.000-1.035) Urine Protein (Negative) Urine Glucose (UA) (Negative) g/dL Urine Ketones (NEGATIVE) Urine Occult Blood (Negative) Urine Nitrate (Negative) Urine Bilirubin (NEGATIVE) Urine Urobilinogen (0.2) E.U./dL Ur Leukocyte Esterase (NEGATIVE) Urine RBC (0-5/HPF) Urine WBC (0-5/HPF) Urine Bacteria (None) Ur Culture Indicated? U Opiates 300ng/mL cut (Negative) Ur Oxycodone Screen (Negative) Urine Methadone Screen (Negative) Ur Barbiturates Screen (Negative) U Tricyclic Antidepress (Negative) Ur Phencyclidine Scrn (Negative) Ur Amphetamines Screen (Negative) U Methamphetamines Scrn (Negative) Ur MDMA Scrn (Ecstasy) (Negative) U Benzodiazepines Scrn (Negative) Urine Cocaine Screen (Negative) U Marijuana (THC) Screen (Negative) Ethyl Alcohol ( - 10) mg/dL SARS-CoV-2 (PCR) (Negative) 07/13/22 07/13/22 07/13/22 Range/Units 10:04 10:38 12:40 WBC (4.5-11.0) X10^3/uL RBC (4.5-5.9) X10^6/uL Hgb (13.5-17.5) g/dL Hct (41-53) % MCV (80-100) fL MCH (26-34) PG MCHC (30-36) % RDW (11.6-14.8) % Plt Count (150-400) X10^3/uL Neut % (Auto) (50-75) % Lymph % (Auto) (25-40) % [place] % (Auto) (3-14) % Eos % (Auto) (2-4) % Baso % (Auto) (0-2) % Neut # (Auto) (4176-7889) /uL Lymph # (Auto) (0667-9402) /uL [place] # (Auto) (0-900) /uL Eos # (Auto) (0-450) /uL Baso # (Auto) (0-100) /uL PT (10.1-12.7) SECONDS INR (0.9-1.3) APTT (26-36) SECONDS Sodium (137-145) mmol/L Potassium (3.4-5.1) mmol/L Chloride (98-107) mmol/L Carbon Dioxide (22-32) mmol/L BUN (9-20) mg/dL Creatinine (0.66-1.25) mg/dL Estimated GFR (>60) mL/min BUN/Creatinine Ratio (6-22) Glucose (70-100) mg/dL Calcium (8.4-10.2) mg/dL Magnesium (1.6-2.3) mg/dL Total Bilirubin (0.2-1.3) mg/dL AST (17-59) IU/L ALT (<50) IU/L Alkaline Phosphatase (38-126) U/L Total Creatine Kinase (55-170) U/L CK-MB (CK-2) (<2.37) ng/mL CK-MB (CK-2) Rel Index (1.5-5.0) % Troponin I (0.01-0.034) ng/mL Total Protein (6.3-8.2) g/dL Albumin (3.5-5.0) g/dL Globulin (1.7-4.1) g/dL Albumin/Globulin Ratio (1.0-2.8) Prolactin 6.5 (3.7-17.9) ng/mL Urine Color Urine Appearance Urine pH (4.5-8.0) Ur Specific [place] (1.000-1.035) Urine Protein (Negative) Urine Glucose (UA) (Negative) g/dL Urine Ketones (NEGATIVE) Urine Occult Blood (Negative) Urine Nitrate (Negative) Urine Bilirubin (NEGATIVE) Urine Urobilinogen (0.2) E.U./dL Ur Leukocyte Esterase (NEGATIVE) Urine RBC (0-5/HPF) Urine WBC (0-5/HPF) Urine Bacteria (None) Ur Culture Indicated? U Opiates 300ng/mL cut Negative (Negative) Ur Oxycodone Screen Negative (Negative) Urine Methadone Screen Negative (Negative) Ur Barbiturates Screen Negative (Negative) U Tricyclic Antidepress Negative (Negative) Ur Phencyclidine Scrn Negative (Negative) Ur Amphetamines Screen Negative (Negative) U Methamphetamines Scrn Negative (Negative) Ur MDMA Scrn (Ecstasy) Negative (Negative) U Benzodiazepines Scrn Negative (Negative) Urine Cocaine Screen Negative (Negative) U Marijuana (THC) Screen Negative (Negative) Ethyl Alcohol < 10 ( - 10) mg/dL SARS-CoV-2 (PCR) Negative (Negative) 07/13/22 Range/Units 12:40 WBC (4.5-11.0) X10^3/uL RBC (4.5-5.9) X10^6/uL Hgb (13.5-17.5) g/dL Hct (41-53) % MCV (80-100) fL MCH (26-34) PG MCHC (30-36) % RDW (11.6-14.8) % Plt Count (150-400) X10^3/uL Neut % (Auto) (50-75) % Lymph % (Auto) (25-40) % [place] % (Auto) (3-14) % Eos % (Auto) (2-4) % Baso % (Auto) (0-2) % Neut # (Auto) (4359-2433) /uL Lymph # (Auto) (7751-1644) /uL [place] # (Auto) (0-900) /uL Eos # (Auto) (0-450) /uL Baso # (Auto) (0-100) /uL PT (10.1-12.7) SECONDS INR (0.9-1.3) APTT (26-36) SECONDS Sodium (137-145) mmol/L Potassium (3.4-5.1) mmol/L Chloride (98-107) mmol/L Carbon Dioxide (22-32) mmol/L BUN (9-20) mg/dL Creatinine (0.66-1.25) mg/dL Estimated GFR (>60) mL/min BUN/Creatinine Ratio (6-22) Glucose (70-100) mg/dL Calcium (8.4-10.2) mg/dL Magnesium (1.6-2.3) mg/dL Total Bilirubin (0.2-1.3) mg/dL AST (17-59) IU/L ALT (<50) IU/L Alkaline Phosphatase (38-126) U/L Total Creatine Kinase (55-170) U/L CK-MB (CK-2) (<2.37) ng/mL CK-MB (CK-2) Rel Index (1.5-5.0) % Troponin I (0.01-0.034) ng/mL Total Protein (6.3-8.2) g/dL Albumin (3.5-5.0) g/dL Globulin (1.7-4.1) g/dL Albumin/Globulin Ratio (1.0-2.8) Prolactin (3.7-17.9) ng/mL Urine Color Yellow Urine Appearance Clear Urine pH 6.5 (4.5-8.0) Ur Specific [place] 1.010 (1.000-1.035) Urine Protein Negative (Negative) Urine Glucose (UA) Negative (Negative) g/dL Urine Ketones Negative (NEGATIVE) Urine Occult Blood Trace-intact (Negative) Urine Nitrate Negative (Negative) Urine Bilirubin Negative (NEGATIVE) Urine Urobilinogen 0.2 (0.2) E.U./dL Ur Leukocyte Esterase Negative (NEGATIVE) Urine RBC None seen (0-5/HPF) Urine WBC None seen (0-5/HPF) Urine Bacteria None seen (None) Ur Culture Indicated? Cult not indicated U Opiates 300ng/mL cut (Negative) Ur Oxycodone Screen (Negative) Urine Methadone Screen (Negative) Ur Barbiturates Screen (Negative) U Tricyclic Antidepress (Negative) Ur Phencyclidine Scrn (Negative) Ur Amphetamines Screen (Negative) U Methamphetamines Scrn (Negative) Ur MDMA Scrn (Ecstasy) (Negative) U Benzodiazepines Scrn (Negative) Urine Cocaine Screen (Negative) U Marijuana (THC) Screen (Negative) Ethyl Alcohol ( - 10) mg/dL SARS-CoV-2 (PCR) (Negative) Point of Care Testing Glucose POC 101 Urine Dip Bedside Urine Glucose Negative Bedside Urine Bilirubin - Negative Bedside Urine Ketone - Negative Urine Specific [place] 1.010 Bedside Urine Occult Blood +/- Bedside Urine pH 6 Bedside Urine Protein - Negative Bedside Urine Urobilinogen - Negative Bedside Urine Nitrite - Negative Bedside Urine Leukocytes - Negative Esterase Imaging Data CT scan - head: Radiologist's Impression: Pérez Dhillon??57??M??1965 ? Allergy/Adv: No Known Drug Allergies (More??) Close Brain MRI (Signed) Milton Allen - 07/13/22 Head/Neck CTA (Signed) Joselo Muñoz - 07/13/[address] (Signed) Norma Gaytan - 07/13/22 Chest X-Ray (Signed) Anup Child - 07/13/22 Brain MRI (Signed) Nisha Knox - 10/20/19 Telemetry Strips 10/20/19 Telemetry Strips 10/20/[address] (Signed) Call,Zhen - 10/20/[address] (Signed) Roman Anaya - 01/26/19 Head/Neck CTA (Signed) Anup Child - 12/29/18 Echocardiogram Ultrasound (Signed) Carlos A Stephens - 12/29/18 Carotid Doppler Study (Signed) Anup Child - 12/29/[address] (Signed) Call,Zhen - 12/29/18 Launch?[place] [address] CT Scan Report Signed Patient: Pérez Dhillon MR#: [id number] : 1965 Acct:[id number] Age/Sex: 57 / M Date of Service: 07/13/22 Loc: ED Accession Number: [id number] ?? Procedure: CT Stroke Ordering Provider: Josephine Mathur D.O. PROCEDURE:? CT STROKE ? INDICATIONS:? left weak, unable to ambulate, h/o carotid blockage ? TECHNIQUE:? Noncontrast 4.5 mm thick angled axial sections acquired from the foramen magnum to the vertex, with coronal reformats.? For radiation dose reduction, the following was used:? automated exposure control, adjustment of mA and/or kV according to patient size.? ? COMPARISON:? [facility], CT, CT HEAD/BRAIN WO CON, 10/20/2019, 10:05.? [facility], CT, CT HEAD/BRAIN WO CON, 01/26/2019, 14:15.? MR, MR STROKE, 10/20/2019, 14:23. ? FINDINGS:? Image quality:? Excellent.? ? CSF spaces:? Basal cisterns are patent.? No extra-axial fluid collections.? The ventricles are symmetric in size and shape.? ? Brain:? Encephalomalacia in the right frontal parietal lobe compatible with old MCA infarct.? No intracranial bleeds or masses.? There is cerebral volume loss for age, with resultant ventricular and sulcal prominence.? There are periventricular and deep white matter chronic small vessel ischemic changes.? There is intracranial internal carotid artery atherosclerosis.? ? Skull and face:? Calvarium and visualized facial bones appear intact, without suspicious lesions.? ? Sinuses:? Visualized sinuses and mastoids are clear.? ? IMPRESSION:? ? 1. No acute intracranial abnormalities.? 2. Large old right MCA infarct.? 3. Cerebral volume loss and chronic microvascular ischemic changes. ? The result was discussed with Dr. Mathur prior to dictation. This study fulfills neurological imaging criteria for inclusion or exclusion of acute stroke therapies based on available published neurological guidelines.? ? ? Dictated by: Norma Gaytan M.D. on 07/13/2022 at 10:34 ? ? Approved by: Norma Gaytan M.D. on 07/13/2022 at 10:39?? CTA - brain/neck: Radiologist's Impression: Pérez Dhillon??57??M??1965 ? Allergy/Adv: No Known Drug Allergies (More??) Close Brain MRI (Signed) Milton Allen - 07/13/22 Head/Neck CTA (Signed) Joselo Muñoz - 07/13/[address] (Signed) Norma Gaytan - 07/13/22 Chest X-Ray (Signed) Anup Child - 07/13/22 Brain MRI (Signed) Nisha Knox - 10/20/19 Telemetry Strips 10/20/19 Telemetry Strips 10/20/[address] (Signed) Zhen Coppola - 10/20/[address] (Signed) Roman Anaya - 01/26/19 Head/Neck CTA (Signed) Anup Child - 12/29/18 Echocardiogram Ultrasound (Signed) Carlos A Stephens - 12/29/18 Carotid Doppler Study (Signed) [facility] - [facility] (Signed) Mohit Coppolawn - 12/29/18 Launch?Image [address] [address] [address] Scan Report Signed Patient: Pérez Dhillon MR#: [id number] : 1965 Acct:[id number] Age/Sex: 57 / M Date of Service: 07/13/22 Loc: ED Accession Number: [id number] ?? Procedure: CT angio head and neck Ordering Provider: Josephine Mathur D.O. PROCEDURE:? CT ANGIO HEAD AND NECK ? INDICATIONS:? left weak, unable to ambulate, h/o carotid blockage ? TECHNIQUE:? ? After the administration of intravenous contrast, 1 mm thick sections acquired from the aortic arch through the [place] of [place].? Post-contrast 4.5 mm thick sections then re-acquired from the foramen magnum to the vertex.? 3-dimensional arwtzoa-fgtovzqgb-daibywdohz (MIP) and/or volume rendering reformats were acquired of the central intracranial vasculature and neck separately. For radiation dose reduction, the following was used:? automated exposure control, adjustment of mA and/or kV a ccording to patient size.? ? COMPARISON:? [facility], CT, CT ANGIO HEAD AND NECK, 12/29/2018, 13:27. ? FINDINGS:? Image quality:? Excellent.? ? BRAIN:? CSF spaces:? Ventricles are normal in size and shape.? Basal cisterns are patent.? No extra-axial fluid collections.? ? Brain:? No midline shift.? No intracranial bleeds or masses.? Mancuso-white matter interface appears intact.? Remote large right MCA territory infarct.? ? Skull and face:? Calvarium and facial bones appear intact, without suspicious lesions.? Orbits appear normal.? ? Sinuses:? Sinuses and mastoids are clear.? ? HEAD CT ANGIOGRAPHY:? Anterior circulation:? Intracranial internal carotid arteries are normal in size and flow.? The flow within the paired anterior cerebral arteries is normal and symmetric.? The flow within the middle cerebral arteries is normal and symmetric.? The anterior communicating artery is seen.? No aneurysms are seen.? ? Posterior circulation:? Visualized portions of the vertebral arteries demonstr ate normal caliber, and join to form a normal appearing basilar artery.? Flow within the posterior cerebral arteries is normal and symmetric.? No aneurysms are seen.? ? NECK CT ANGIOGRAPHY:? Carotid system:? The great vessels demonstrate a conventional anatomy as they arise from the aortic arch.? 55% stenosis of the proximal right brachiocephalic artery.? The origins of the common carotid arteries appear patent.? There is a left common to internal carotid artery stent which demonstrates intraluminal narrowing of 70%.? Bulky calcifications of the left carotid bulb, resulting in at least 39% stenosis of the proximal right internal carotid artery. ? Posterior circulation:? The origins of the vertebral arteries both appear widely patent.? The left vertebral artery is diminutive, and terminates as the PICA. ? Soft tissues:? Visualized neck soft tissues demonstrate no suspicious abnormalities.? ? Bones:? No suspicious bony lesions.? Visualized cervical spine appears normally aligned.? IMPRESSION:? No filling defect within the opacified intracranial or neck vasculature. ? At least 70% narrowing of the left internal carotid artery within the stent.? This appears due to intimal hyperplasia. ? At least 39% stenosis of the proximal right internal carotid artery due to bulky calcifications. ? Sequela of a remote large right MCA infarct. ? Any quantitative measurements of stenosis were performed using NASCET criteria.? ? ? Dictated by: Joselo Muñoz M.D. on 07/13/2022 at 10:42 ? ? Approved by: Joselo Muñoz M.D. on 07/13/2022 at 10:54?? MRI brain: Radiologist's Impression: Close Brain MRI (Signed) Milton Allen - 07/13/22 Head/Neck CTA (Signed) Joselo Muñoz - 07/13/[address] (Signed) Norma Gaytan - 07/13/22 Chest X-Ray (Signed) Anup Child - 07/13/22 Brain MRI (Signed) Nisha Knox - 10/20/19 Telemetry Strips 10/20/19 Telemetry Strips 10/20/[address] (Signed) Zhen Coppola - 10/20/[address] (Signed) Roman Anaya - 01/26/19 Head/Neck CTA (Signed) Anup Child - 12/29/18 Echocardiogram Ultrasound (Signed) Carlos A Stephens - 12/29/18 Carotid Doppler Study (Signed) Roly Childic - 12/29/[address] (Signed) Zhen Coppola - 12/29/18 Launch?Image [address] [address] Magnetic Resonance Report Signed Patient: Pérez Dhillon MR#: [id number] : 1965 Acct:[id number] Age/Sex: 57 / M Date of Service: 07/13/22 Loc: ED Accession Number: [id number] ?? Procedure: MR head/brain wo con Ordering Provider: Josephine Mathur D.O. PROCEDURE:? MR HEAD/BRAIN WO CON ? INDICATIONS:? ataxia, dysarthria, L tingling ? TECHNIQUE:? Noncontrast axial T1 spin echo, axial T2 fast spin echo, sagittal and axial FLAIR, coronal T2 fast spin echo, axial gradient echo, axial diffusion and ADC through the brain.? ? COMPARISON:? [facility], MR, MR STROKE, 10/20/2019, 14:23.? [facility], CT, CT STROKE, 07/13/2022, 10:21.? [facility], CT, CT ANGIO HEAD AND NECK, 07/13/2022, 10:21. ? FINDINGS:? Image quality:? This examination is limited by involuntary motion artifact.? ? ? CSF Spaces:? Basal cisterns are patent.? No extra-axial fluid collections.? Ventricles are normal in size and shape.? ? Brain:? No intracranial masses or hemorrhage.? Mancuso/white matter interface is normal.? Brainstem appears normal.? Diffusion-weighted images demonstrate no acute ischemic insult.? A remote right MCA territory infarction is again seen, with a broad area of volume loss and encephalomalacia.? Normal intravascular flow voids are present.? ? Skull and face:? Calvarium has normal marrow signal.? Orbits appear normal.? ? Sinuses:? Sinuses and mastoids are clear.? ? IMPRESSION:? No findings of acute or subacute infarction can be seen. ? Stable remote right MCA territory infarction. ? ? Dictated by: Milton Allen M.D. on 07/13/2022 at 13:40 ? ? Approved by: Milton Allen M.D. on 07/13/2022 at 13:44?? ECG Data Attestation: I personally reviewed and interpreted this ECG as follows: Prior ECG tracings: available for review Interpretation: Sinus rhythm rate of 65 MT 162, QRS 86 QTC 426. No acute change from priors. MDM Narrative Medical decision making narrative: 57-year-old male with history of carotid endarterectomy, on aspirin daily with prior seizures presents with dysarthria, mild facial droop, numbness tingling on the left side and ataxia. Patient seems to actually have pretty good strength he has numbness tingling on the left but actually had a little bit of drift on the right. He would normal range of motion and actually did quite well on heel- roy on examination. Patient is not a candidate for tPA his last normal is 7:00 p.m. on 07/12/2022. He had his baby aspirin today he is quite hypertensive. He does have a seizure disorder but presents more as a stroke and not so much as a Brendan's paralysis at this time. He certainly has risk factors for stroke. 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 Case was discussed with Dr. Flores from Neurology for [facility], recommends MRI brain without contrast. If no stroke would not change medications dependent on if there is stroke would be dependent on medication changes. MRI is negative re- contacted with Neurology they do recommend observation discussed could be possibly related to infection or other source causing unmasking of patient's old symptoms, underlying seizure issues, withdrawals patient does have alcohol history or other possible causes. Labs show clear change or cause no signs of infection, COVID negative, U tox is negative, ETOH is negative, UA is negative, normal renal function, electrolytes, LFTs, CBC. EKG: Sinus rhythm rate of 65 MT 162, QRS 86 QTC 426. Voltage criteria for LVH. Discussed with Dr. Moya, accepts for admission. Patient was seen here in the department. Was noted the patient was quite hypertensive he did receive a dose of labetalol, press seems less likely source of his symptoms. Lamotrigine level is still pending. Stroke Core Measures Exclusion Criteria TPA in CVA: Unknown Onset of Symptoms Critical Care Time Critical Care Time Attestation: The high probability of a clinically significant, sudden or life threatening deterioration of the [neuro] system(s) required my full and direct attention, intervention and personal management. The aggregate critical care time was [] minutes. This time is in addition to time spent performing reported procedures but includes the following: [x] Data Review and interpretation [x] Patient assessment and monitoring of vital signs [x] Documentation [x] Medication orders and management Discharge Plan Departure Patient Disposition: Admitted As Inpatient Clinical Impression: Dysarthria Admit Date/Time: 07/13/22 16:41 Admit Provider: Marcelino Moya
[2022-07-13 10:38] LABS: Add Manual Diff / Slide Review NO; Basophils Absolute Auto 100 /uL (0-100); Basophils Percent Auto 0.9 % (0-2); Eosinophils Absolute Auto 200 /uL (0-450); Eosinophils Percent Auto 3.2 % (2-4); Hematocrit 41.5 % (41-53); Hemoglobin 14.4 g/dL (13.5-17.5); Lymphocytes Absolute Auto 900 /uL (1100-4500); Lymphocytes Percent Auto 13.9 % (25-40); Mean Corpuscular HGB Conc 34.6 % (30-36); Mean Corpuscular Hemoglobin 33.1 PG (26-34); Mean Corpuscular Volume 95.7 fL (80-100); Monocytes Absolute Auto 300 /uL (0-900); Monocytes Percent Auto 4.3 % (3-14); Neutrophils Absolute Auto 4900 /uL (1500-7000); Neutrophils Percent Auto 77.7 % (50-75); Platelet Count 281 X10^3/uL (150-400); Red Blood Cell Count 4.33 X10^6/uL (4.5-5.9); Red Cell Distribution Width 13.1 % (11.6-14.8); White Blood Cell Count 6.4 X10^3/uL (4.5-11.0)
[2022-07-13 10:46] LABS: INR 0.9 (0.9-1.3); Prothrombin Time 10.8 SECONDS (10.1-12.7)
[2022-07-13 10:48] LABS: Ethanol (ETOH) < 10 mg/dL
[2022-07-13 10:49] LABS: PTT Partial Thromboplastin Tim 31 SECONDS (26-36)
[2022-07-13 11:05] LABS: Alanine Aminotransferase 32 IU/L (<50); Albumin 4.3 g/dL (3.5-5.0); Albumin Globulin Ratio 1.5 (1.0-2.8); Alkaline Phosphatase 65 U/L (38-126); Aspartate Aminotransferase 29 IU/L (17-59); BUN Creatinine Ratio 19.5 (6-22); Bilirubin Total 0.4 mg/dL (0.2-1.3); Blood Urea Nitrogen 15 mg/dL (9-20); Calcium 9.2 mg/dL (8.4-10.2); Carbon Dioxide 28 mmol/L (22-32); Chloride 106 mmol/L (98-107); Creatine Kinase 109 U/L (55-170); Estimated Glomerular Filt Rate > 60 mL/min (>60); Globulin 2.8 g/dL (1.7-4.1); Glucose 106 mg/dL (70-100); Magnesium 2.1 mg/dL (1.6-2.3); Potassium 4.5 mmol/L (3.4-5.1); Prolactin 6.5 ng/mL (3.7-17.9); Sodium 139 mmol/L (137-145); Total Protein 7.1 g/dL (6.3-8.2)
[2022-07-13 11:16] LABS: Troponin I < 0.012 ng/mL (0.01-0.034)
[2022-07-13 11:24] LABS: CKMB % Relative Index 1.8 % (1.5-5.0); Creatine Kinase MB 1.95 ng/mL (<2.37); HEMOLYSIS 27 (0-50)
[2022-07-13 12:37] LABS: COVID19 -Nasal RAPID Negative (Negative)
[2022-07-13 12:52] LABS: Ur Creatinine Normal (Normal); Ur Specific Gravity Normal (Normal); Urine pH Normal (Normal)
[2022-07-13 12:53] LABS: UR Morphine/Opiate cutoff 300 Negative (Negative); Urine Amphetamines Negative (Negative); Urine Barbiturates Negative (Negative); Urine Benzodiazepines Negative (Negative); Urine Cocaine Negative (Negative); Urine MDMA Negative (Negative); Urine Methadone Negative (Negative); Urine Methamphetamines Negative (Negative); Urine Oxycodone Negative (Negative); Urine Phencyclidine Negative (Negative); Urine Tetrahydrocannabinol Negative (Negative); Urine Tricyclic Antidepressant Negative (Negative)
--- NOTE | 2022-07-13 13:50 | DI.MRI.S_ITS ---
PROCEDURE: MR HEAD/BRAIN WO CON INDICATIONS: ataxia, dysarthria, L tingling TECHNIQUE: Noncontrast axial T1 spin echo, axial T2 fast spin echo, sagittal and axial FLAIR, coronal T2 fast spin echo, axial gradient echo, axial diffusion and ADC through the brain. COMPARISON: [facility], MR, MR STROKE, 10/20/2019, 14:23. [facility], CT, CT STROKE, 07/13/2022, 10:21. [facility], CT, CT ANGIO HEAD AND NECK, 07/13/2022, 10:21. FINDINGS: Image quality: This examination is limited by involuntary motion artifact. CSF Spaces: Basal cisterns are patent. No extra-axial fluid collections. Ventricles are normal in size and shape. Brain: No intracranial masses or hemorrhage. Mancuso/white matter interface is normal. Brainstem appears normal. Diffusion-weighted images demonstrate no acute ischemic insult. A remote right MCA territory infarction is again seen, with a broad area of volume loss and encephalomalacia. Normal intravascular flow voids are present. Skull and face: Calvarium has normal marrow signal. Orbits appear normal. Sinuses: Sinuses and mastoids are clear. IMPRESSION: No findings of acute or subacute infarction can be seen. Stable remote right MCA territory infarction. Dictated by: Milton Allen M.D. on 07/13/2022 at 13:40 Approved by: Milton Allen M.D. on 07/13/2022 at 13:44
[2022-07-13] MEDS: LABETALOL 20 MG/4 ML SYRINGE 10 MG IV (15:01)
--- NOTE | 2022-07-13 16:40 | P.HP_ITS ---
History of Present Illness History of Present Illness Date Patient Seen: 07/13/22 Time Patient Seen: 16:40 Chief complaint: Says stroke Narrative: Pérez Dhillon is a 54-year-old male with past medical history of hypertension, hyperlipidemia, prior CVA x2with residual left-sided weakness,ETOH abuse? who started experiencing difficulty speaking per his , along with some left sided weakness and imbalance starting this morning when he woke up around 6am, last known normal was yesterday afternoon. Patient is difficult to understand for complex answers due to difficulty speaking currently. states he is much declined from his baseline. He denied headache, palpitations, chest pain, shonrtness of breath, cough, nausea, vomiting, abdominal pain or sweeling. He continues to drink 4-5 beers a day, also smokes 1 ppd of cigarettes. He is on lamictal after a seizure from one of his prior strokes. He does report some pain around his tongue and thinks he may have bitten it. He denies shaking, loss of consciousness. He does have new trouble swallowing. In the emergency room, initial vital signs were notable for hypertension. initial laboratory studies were unremarkable.? COVID-[address] testing [address] head and CTA showed no acute findings, though his prior carotid stent appeared to be 70% stenosed. MRI showed his prior R MCA infarct, but no acute e vents were found. However, patient remained much diminished from baseline, unclear if due to MR negative CVA, TIA, or ? seizure. [facility] Medical History HTN (hypertension) Hyperlipidemia Stroke Surgical History H/O carotid endarterectomy Social History household members: spouse and children Smoking Status: Current every day smoker alcohol intake: current Meds Home Medications and Allergies Home Medications Medication Instructions Recorded Confirmed Type hydrochlorothiazide 25 mg tablet 25 mg PO DAILY 12/29/18 07/13/22 History lamotrigine 200 mg tablet 200 mg PO BID 12/29/18 07/13/22 History aspirin 81 mg tablet,delayed 81 mg PO DAILY 01/26/19 07/13/22 History release atorvastatin 40 mg tablet 40 mg PO DAILY 01/26/19 07/13/22 History citalopram 40 mg tablet 40 mg PO DAILY 01/26/19 07/13/22 History sertraline 50 mg tablet 50 mg PO DAILY 07/13/22 07/13/22 History Allergies Allergy/AdvReac Type Severity Reaction Status Date / Time No Known Drug Allergies Allergy Verified 07/13/22 10:09 Review of Systems Review of Systems Narrative: All other systems reviewed with the patient and are negative unless otherwise stated. Exam Vital Signs (past 8 hours): - 07/13/22 10:04 07/13/22 10:13 07/13/22 10:14 Temperature 98.4 F Pulse Rate 73 70 Respiratory Rate 15 Blood Pressure 228/101 H 227/110 H Pulse Oximetry 99 98 Oxygen Delivery Method Room Air 07/13/22 10:34 07/13/22 10:35 07/13/22 10:35 Temperature Pulse Rate 66 65 Respiratory Rate 15 16 Blood Pressure 213/95 H Pulse Oximetry 98 98 Oxygen Delivery Method 07/13/22 11:00 07/13/22 11:01 07/13/22 11:01 Temperature Pulse Rate 57 L 57 L Respiratory Rate 16 15 Blood Pressure 176/80 H Pulse Oximetry 97 97 Oxygen Delivery Method 07/13/22 11:30 07/13/22 11:30 07/13/22 12:00 Temperature Pulse Rate 69 61 Respiratory Rate 24 Blood Pressure 179/104 H Pulse Oximetry 97 97 Oxygen Delivery Method 07/13/22 12:01 07/13/22 12:01 07/13/22 12:30 Temperature Pulse Rate 62 61 Respiratory Rate 18 Blood Pressure 217/91 H Pulse Oximetry 97 98 Oxygen Delivery Method 07/13/22 12:31 07/13/22 12:31 07/13/22 12:45 Temperature Pulse Rate 63 59 L Respiratory Rate 22 23 Blood Pressure 173/83 H Pulse Oximetry 99 98 Oxygen Delivery Method 07/13/22 13:00 07/13/22 13:00 07/13/22 13:15 Temperature Pulse Rate 56 L 66 Respiratory Rate 17 20 Blood Pressure 158/75 H Pulse Oximetry 97 98 Oxygen Delivery Method 07/13/22 13:30 07/13/22 13:30 07/13/22 13:45 Temperature Pulse Rate 69 63 Respiratory Rate 26 H 23 Blood Pressure 166/85 H Pulse Oximetry 97 97 Oxygen Delivery Method 07/13/22 14:00 07/13/22 14:00 07/13/22 14:02 Temperature Pulse Rate 69 68 Respiratory Rate 21 20 Blood Pressure 215/101 H Pulse Oximetry 97 98 Oxygen Delivery Method 07/13/22 14:34 07/13/22 14:35 07/13/22 14:45 Temperature Pulse Rate 66 61 Respiratory Rate 16 Blood Pressure 230/97 H Pulse Oximetry 98 98 Oxygen Delivery Method Room Air 07/13/22 15:01 07/13/22 15:00 07/13/22 15:01 Temperature Pulse Rate 60 63 Respiratory Rate 15 21 Blood Pressure 179/79 H Pulse Oximetry 97 98 Oxygen Delivery Method 07/13/22 15:01 07/13/22 15:15 07/13/22 15:30 Temperature Pulse Rate 62 Respiratory Rate 20 Blood Pressure 179/79 H 146/69 H Pulse Oximetry 97 Oxygen Delivery Method 07/13/22 15:30 07/13/22 15:45 07/13/22 16:00 Temperature Pulse Rate 57 L 57 L Respiratory Rate 15 15 Blood Pressure 141/74 H Pulse Oximetry 95 97 Oxygen Delivery Method 07/13/22 16:00 07/13/22 16:15 07/13/22 16:30 Temperature Pulse Rate 58 L 63 61 Respiratory Rate 15 17 Blood Pressure Pulse Oximetry 96 98 96 Oxygen Delivery Method Oxygen Delivery Method Room Air Narrative Exam Narrative: Exam Narrative: GENERAL APPEARANCE: Well developed, well nourished, in no acute distress. SKIN: Inspection of the skin reveals no rashes, ulcerations or petechiae. HEENT:? Normocephalic atraumatic, extraocular muscles are intact, oropharynx is clear and mucous membranes are moist, neck is supple without adenopathy. Poor dentition, no obvious tongue lacerations. NECK: Supple and symmetric. There was no thyroid enlargement, and no tenderness, or masses were felt. CHEST: Normal AP diameter and normal contour without any kyphoscoliosis. LUNGS: Auscultation of the lungs revealed no wheezes, rhonchi, or rales. CARDIOVASCULAR: There was a regular rate and rhythm without any murmurs, gallops, rubs. Peripheral pulses were 2+ and symmetric. ABDOMEN: Soft and nontender with normal bowel sounds. No ascites was noted. MUSCULOSKELETAL: There was no tenderness or effusions noted. Muscle strength and tone were normal. EXTREMITIES: No cyanosis, clubbing or edema. NEUROLOGIC: Unable to assess orientation due to dyarthria, but appears alert and oriented, follows commands and answers simple questions accurately. Strength is +5/5 in the Upper Extremities and Lower Extremities Bilaterally, but right is weaker than left which is also chronically weak at baseline. Objective ECG Impression: NSR, no acute ischemia as interpreted by me. Labs 07/13/22 10:04 07/13/22 10:04 Labs: Laboratory Results - last 24 hr 07/13/22 07/13/22 07/13/22 10:04 10:04 10:04 WBC 6.4 RBC 4.33 L Hgb 14.4 Hct 41.5 MCV 95.7 MCH 33.1 MCHC 34.6 RDW 13.1 Plt Count 281 Neut % (Auto) 77.7 H Lymph % (Auto) 13.9 L [place] % (Auto) 4.3 Eos % (Auto) 3.2 Baso % (Auto) 0.9 Neut # (Auto) 4900 Lymph # (Auto) 900 L [place] # (Auto) 300 Eos # (Auto) 200 Baso # (Auto) 100 PT 10.8 INR 0.9 APTT 31 Sodium 139 Potassium 4.5 Chloride 106 Carbon Dioxide 28 BUN 15 Creatinine 0.77 Estimated GFR > 60 BUN/Creatinine Ratio 19.5 Glucose 106 H Calcium 9.2 Magnesium 2.1 Total Bilirubin 0.4 AST 29 ALT 32 Alkaline Phosphatase 65 Total Creatine Kinase 109 CK-MB (CK-2) 1.95 CK-MB (CK-2) Rel Index 1.8 Troponin I < 0.012 Total Protein 7.1 Albumin 4.3 Globulin 2.8 Albumin/Globulin Ratio 1.5 Prolactin U Opiates 300ng/mL cut Ur Oxycodone Screen Urine Methadone Screen Ur Barbiturates Screen U Tricyclic Antidepress Ur Phencyclidine Scrn Ur Amphetamines Screen U Methamphetamines Scrn Ur MDMA Scrn (Ecstasy) U Benzodiazepines Scrn Urine Cocaine Screen U Marijuana (THC) Screen Ethyl Alcohol SARS-CoV-2 (PCR) 07/13/22 07/13/22 07/13/22 10:04 10:38 12:40 WBC RBC Hgb Hct MCV MCH MCHC RDW Plt Count Neut % (Auto) Lymph % (Auto) [place] % (Auto) Eos % (Auto) Baso % (Auto) Neut # (Auto) Lymph # (Auto) [place] # (Auto) Eos # (Auto) Baso # (Auto) PT INR APTT Sodium Potassium Chloride Carbon Dioxide BUN Creatinine Estimated GFR BUN/Creatinine Ratio Glucose Calcium Magnesium Total Bilirubin AST ALT Alkaline Phosphatase Total Creatine Kinase CK-MB (CK-2) CK-MB (CK-2) Rel Index Troponin I Total Protein Albumin Globulin Albumin/Globulin Ratio Prolactin 6.5 U Opiates 300ng/mL cut Negative Ur Oxycodone Screen Negative Urine Methadone Screen Negative Ur Barbiturates Screen Negative U Tricyclic Antidepress Negative Ur Phencyclidine Scrn Negative Ur Amphetamines Screen Negative U Methamphetamines Scrn Negative Ur MDMA Scrn (Ecstasy) Negative U Benzodiazepines Scrn Negative Urine Cocaine Screen Negative U Marijuana (THC) Screen Negative Ethyl Alcohol < 10 SARS-CoV-2 (PCR) Negative Assessment & Plan Assessment & Plan narrative: Pérez Dhillon is a 54-year-old male with past medical history of hypertension, hyperlipidemia, prior CVA x2with residual left-sided weakness,ETOH abuse who started experiencing difficulty speaking per his this morning upon awakening, along with worsening imbalance and unilateral weakness. 1. Right weakness, dysarthria, acute - suspect Acute CVA, possible seizure - MR negative, but may have missed new acute infarct based on history and exam. Will have to see if he improves with time. Differentials includes seizure, less likely metabolic or infectious. Lamictal level ordered by the ER. - no changes to medications per tele-stroke service in the ER. - allow for permissive HTN for now - NIH q shift, 3 on my initial assesment - PT/OT evalautions ordered. 2. Hypertension ?- continue home amlodipine, HCTZ 3. Alcohol abuse - [place] protocol, patient drinks approximately 4-5 beers per day, last drink was night prior to admission. ?- monitor for withdrawal though no prior severe withdrawal 4. Hyperlipidemia ?- continue home statin, increase to 80 mg from 40. 5. Prior seizure disorder ?- due to prior CVA, continue lamictal. Lamictal level sent in ER Code:? Full surrogate is patient's spouse Dispo:? Admitted under inpatient status as his stay is expected to exceed 2 midnights. I have utilized all available immediate resources to obtain, update, or review the patient's current medications. Additional history obtained via document review, ER provider, and patient's spouse. I have personally reviewed patient's relevant labs and imaging from current visit, and EKGs. Discussed plan of care with patient's spouse. COVID-19 COVID-19 status: Negative Scores NIHSS Level of Conciousness: Alert, keenly responsive Ask month/age: Answers both questions correctly. Open/close eyes, close hand: Performs both tasks correctly Best gaze horizontal: Normal Visual john: No visual loss Facial palsy: Normal symetrical movement Left arm drift: No drift for full 10 sec Right arm drift: No drift for full 10 sec Left leg drift: No drift for full 5 sec Right leg drift: No drift for full 5 sec Limb ataxia: Absent Sensory on face/arms/legs: Normal, no sensory loss Best language: Severe aphasia, not much is understood, fragmented Dysarthria: Mild to mod,some slurring Extinction or inattention: No abnormality Total NIH Stroke scale score: 3 Quality MIPS - Admit I confirm the patient?s Advance Care Plan is present, Code status is documented, Surrogate decision maker is in patient?s record [If Yes, STOP here]: Yes
[2022-07-13 16:50] LABS: Appearance Urine UA CLEAR; Bilirubin Urine UA NEGATIVE (NEGATIVE); Color Urine UA YELLOW; Glucose Urine UA NEGATIVE (Negative); Ketones Urine UA NEGATIVE (NEGATIVE); Leukocyte Esterase Urine UA NEGATIVE (NEGATIVE); Nitrite Urine UA NEGATIVE (Negative); Occult Blood Urine UA TRACE-INTACT (Negative); Protein Urine UA NEGATIVE (Negative); Urobilinogen Urine UA 0.2 E.U./dL (0.2); pH Urine UA 6.5 (4.5-8.0)
[2022-07-13 17:06] LABS: Bacteria Urine None Seen; Culture Indicated Urine Cult Not Indicated; RBC Urine None Seen (0-5/HPF); WBC Urine None Seen (0-5/HPF)
[2022-07-13] MEDS: lamoTRIgine 100 MG TABLET 200 MG PO (21:34)
[2022-07-13] MEDS: ATORVASTATIN 20 MG TABLET 80 MG PO (21:34)
[2022-07-14] VITALS (8 sets, daily range): BP systolic 157–176; BP diastolic 71–85; PULSE 65–69; RESP 16–19; TEMP 36.4–37.3; O2SAT 94–96
[2022-07-14 05:50] LABS: Add Manual Diff / Slide Review NO; Basophils Absolute Auto 100 /uL (0-100); Basophils Percent Auto 0.7 % (0-2); Eosinophils Absolute Auto 300 /uL (0-450); Hematocrit 38.9 % (41-53); Hemoglobin 13.4 g/dL (13.5-17.5); Lymphocytes Absolute Auto 1700 /uL (1100-4500); Lymphocytes Percent Auto 20.6 % (25-40); Mean Corpuscular HGB Conc 34.5 % (30-36); Mean Corpuscular Hemoglobin 32.7 PG (26-34); Mean Corpuscular Volume 94.8 fL (80-100); Monocytes Absolute Auto 400 /uL (0-900); Monocytes Percent Auto 5.2 % (3-14); Neutrophils Absolute Auto 5800 /uL (1500-7000); Neutrophils Percent Auto 69.5 % (50-75); Platelet Count 264 X10^3/uL (150-400); Red Cell Distribution Width 12.9 % (11.6-14.8); White Blood Cell Count 8.3 X10^3/uL (4.5-11.0)
[2022-07-14 06:24] LABS: TSH w/ Reflex to FT4 0.98 uIU/mL (0.47-4.68)
[2022-07-14 06:52] LABS: BUN Creatinine Ratio 15.3 (6-22); Blood Urea Nitrogen 11 mg/dL (9-20); Calcium 8.8 mg/dL (8.4-10.2); Carbon Dioxide 27 mmol/L (22-32); Chloride 103 mmol/L (98-107); Cholesterol 190 mg/dL (140-199); Estimated Glomerular Filt Rate > 60 mL/min (>60); Glucose 99 mg/dL (70-100); HDL Cholesterol 49 mg/dL (40-60); HEMOLYSIS < 15 (0-50); LDL Cholesterol Calculated 131 mg/dL (<100); Potassium 3.6 mmol/L (3.4-5.1); Sodium 137 mmol/L (137-145); Triglycerides 49 mg/dL (35-150)
[2022-07-14] MEDS: hydroCHLOROthiazide 25 MG TABLET PO (09:51)
[2022-07-14] MEDS: CITALOPRAM 10 MG TABLET 40 MG PO (09:51)
[2022-07-14] MEDS: lamoTRIgine 100 MG TABLET 200 MG PO ×2 (09:51→21:35)
[2022-07-14] MEDS: ASPIRIN EC 81 MG TABLET PO (09:51)
[2022-07-14] MEDS: ENOXAPARIN 40 MG/0.4 ML SYRINGE SUBCUT (09:51)
--- NOTE | 2022-07-14 11:05 | PT.IIE ---
Current Diagnoses Cerebral infarction, unspecified (07/13/22) Surgical History (Last Reviewed 07/13/22 @ 17:02 by Marcelino Moya DO) H/O carotid endarterectomy Medical History (Last Reviewed 07/13/22 @ 17:02 by Marcelino Moya DO) HTN (hypertension) Hyperlipidemia Stroke Physical Therapy Inpatient Evaluation/Re-Eval M1 PT/OT-IP Prior Functional Status Start: 07/14/22 13:08 Freq: NEEDED Status: Active Protocol: Document 07/14/22 11:05 AB (Rec: 07/14/22 13:25 AB [id number]) Medical Review Prior Functional Status Medical History Reviewed Yes Communication able to follow simple questions but have difficulty verbalizing needs Mobility and Gait spouse in room and provided: PLOF and home set up info stated that pt requiring SBA with ambulation without AD but has been using a FWW for ~ 1 week due to unsteadiness Activities of Daily Living and IADL's spouse stated that she assists pt with dressing and shower needs Social History Household Members spouse,children Living Arrangements House Number of Floors (Floors) Two Floors Number of Stairs To Enter/Railing? has 1 step threshold from the garage without rails to enter the house has 11 steps with R rail ascending ( spouse assists pt with stair climbing) Home Environment Standard Height Toilet,Tub/ Shower Home Equipment Front Wheel Walker,Hand Held Shower,Grab Bars In Shower Additional Social History Comment pt has a recliner on the main level of the house M2 PT-IP Current Condition Start: 07/14/22 13:08 Freq: NEEDED Status: Active Protocol: Document 07/14/22 11:05 AB (Rec: 07/14/22 13:25 AB [id number]) Physical Therapy Current Condition Current Condition Evaluation Date 07/14/22 Treatment Diagnosis r/o CVA; difficulty in walking Onset Date 07/13/22 M3 PT-IP Subjective Start: 07/14/22 13:08 Freq: NEEDED Status: Active Protocol: Document 07/14/22 11:05 AB (Rec: 07/14/22 13:25 AB [id number]) Subjective Physical Therapy Visit Type Type Initial Evaluation Visit Start Time 11:05 Visit Stop Time 11:35 Total Visit Minutes 30 Number of INSURANCE BILLING SPECIALIST Visits 0 M4 PT-IP Mobility and Gait Start: 07/14/22 13:08 Freq: NEEDED Status: Active Protocol: Document 07/14/22 11:05 AB (Rec: 07/14/22 13:25 AB [id number]) PT-Bed Mobility Assessment Supine to Sit Supine to Sit Minimal Assistance Sit to Supine Sit to Supine Standby Assistance Scooting Scooting to Edge of Bed Maximum Assistance PT-Transfer Assessment Sit to and From Stand Sit to and from Stand Maximum Assistance,1 Person Assistance,2 Person Assistance ,Use of Upper Extremities Equipment Transfer Assistive Device Gait Belt,Front Wheeled Walker Orthotic/Prosthetic Devices or Brace: No Comments Mobility Comments BP in supine: 122/72 completed supine min A and cues. able to sit on EOB SBA to CGA. pt is impulsive. required max A for scooting to EOB. (+) drooling in upright position. completed sit to stand max A x 1-2 and max cues . presents with posterior trunk lean. instructed to use UE on FWW for support but pt unable to follow and needs max A for positioning. pt ambulated in room using FWW max A x1-2 and max cued ~ 12 ft. required assist to weight shift to improve RLE propulsion and elevation. pt ambulated back to bed. completed sit to supine SBA. positionee in bed. call light and table placed within reach . informed pt and spouse regarding SNF vs acute rehab d /c recommendation. case maker aware. Gait Assessment Gait Gait Assistance Required: Maximum Assistance,1 Person Assist,2 Person Assist Distance (Feet) 12 Able to Maintain Weight Bearing Status Yes During Gait Assistive Devices Assistive Device Gait Belt,Front Wheeled Walker Orthotic/Prosthetic Devices or Brace: No Gait Deviations General Gait Pattern Ataxic,Decreased Stride Length ,Decreased Feet Clearance,Step -to Gait Factors Limiting Gait Function Factors Limiting Gait Function Decreased Activity Tolerance, Decreased Sensation,Decreased Strength,Difficulty Following Directions,Incoordination, Limited Range of Motion,Poor Balance,Poor Safety Awareness PT-Balance Assessment Sitting Balance and Reactions Static Sitting Balance Ability Good Dynamic Sitting Balance Ability Fair Standing Balance and Reactions Static Standing Balance Ability Poor Dynamic Standing Balance Ability Poor Device Used FWW M5 PT-IP Objective Assessments Start: 07/14/22 13:08 Freq: NEEDED Status: Active Protocol: Document 07/14/22 11:05 AB (Rec: 07/14/22 13:25 AB [id number]) Orientation Orientation/Cognition Level of Alertness Alert Orientation Name Language Function Ability Expressive Aphasia Safety Awareness Decreased Safety Awareness Gross Range of Motion Lower Extremity ROM Assessment Within Functional Limits Strength Lower Extremity Strength Assessment Right Impaired Hip 3+/5 Knee 3+/5 Sensation Assessment Sensation Gross Sensation Left UE Impaired Sensation Description Numbness Comments Sensation Comments decrease L hand sensation per spouse from previous CVA M6 PT-IP Treatment Start: 07/14/22 13:08 Freq: NEEDED Status: Active Protocol: Document 07/14/22 11:05 AB (Rec: 07/14/22 13:25 AB [id number]) Physical Therapy Treatment Education Education Provided Safety M7 PT-IP Assessment and Plan Start: 07/14/22 13:08 Freq: NEEDED Status: Active Protocol: Document 07/14/22 11:05 AB (Rec: 07/14/22 13:25 [id number]) PT Summary Assessment and Plan Potential Rehabilitation Potential Fair Status of Condition at Evaluation Evolving Summary Impairments Pain Assessment Summary pt with h/o CVA and currently admitted to r/o CVA. spouse stated that pt presents with L sided weakness from his previous CVAs (h/o 3 CVAs). Pt currently presents with Rsided weakness and has difficulty verbalizing needs. pt requiring max A x 1-2 for sit to stand and ambulation using FWW with difficulty moving RLE needing max A for weight shifting to be able to move RLE forward. pt will benefit from SNF rehab vs acute rehab depending on progress but at this time SNF due to decrease activity tolerance. Goals Bed Mobility Goal Independent Transfer Goal Minimal Assistance,Front Wheeled Walker Gait Goal Minimal Assistance,Front Wheel Walker Gait Distance 150 Other Goals improve transfers and ambulation using FWW SBA ~ 200 ft up/down 1 step using FWW SBA up/down 11 steps R rail /WIG DRESSER SBA Days to Meet Goals 10 Frequency of Treatment Frequency Of Treatment Once a Day Treatment Plan Physical Therapy Treatment Plan Bed Mobility Training,Transfer Training,Gait Training, Therapeutic Exercise,Balance Retraining,Discharge Planning, Hot or Cold Pack,Neuromuscular Re-ed,Coordination Retraining ,Manual Therapy Precautions Other Precautions falls Recommendations To Nursing Amount of Assist Needed 2 Person Assist Discharge Recommendations PT Discharge Recommendations SNF Rehab,Acute Rehab,SNF vs Acute Rehab Transportation Needs at Discharge Wheelchair/Cabulance
--- NOTE | 2022-07-14 11:32 | ST.IPIE ---
Visit Care Team Role Provider Type Stephanie Felix MD Primary Care Provider Non-Staff Specialty: Family Practice Address: [address] [place] [address], [id number] Email: Josephine Mathur DO Emergency Provider Physician Referring Provider Specialty: Emergency Medicine Address: [address] [place] [address], [id number] Email: [email or web address] Admit Provider Physician Attending Provider Specialty: Internal Medicine Address: [address] [place] [address], [id number] Email: [email or web address] Diagnoses Cerebral infarction, unspecified (07/13/22) Past Medical History (Last Reviewed 07/13/22 @ 17:02 by Marcelino Moya DO) HTN (hypertension) (Medical) Hyperlipidemia (Medical) Stroke (Medical) x2 with residual left-sided decreased sensation ST IP Initial Evaluation Report POOL HAND Motor Speech Evaluation Start: 07/14/22 11:19 Freq: Status: Active Protocol: Document 07/14/22 11:19 MG (Rec: 07/14/22 11:31 MG [id number]) Motor Speech Evaluation Session Time Visit Start Time 10:20 Visit Stop Time 10:45 Total Visit Minutes 25 Visit Information Visit Number 1 Setting Setting Acute Care Next Note Type Next Note Type Treatment Note Patient History Source: [employer]). Patient History Per H&P: Pt is a 54-year-old male with past medical history of hypertension, hyperlipidemia, prior CVA x2 with residual left-sided weakness, ETOH abuse?who started experiencing difficulty speaking per his , along with some left sided weakness and imbalance starting this yesterday morning when he woke up around 6am, last known normal was yesterday afternoon. Patient is difficult to understand for complex answers due to difficulty speaking currently. states he is much declined from his baseline. He denied headache, palpitations , chest pain, shortness of breath, cough, nausea, vomiting, abdominal pain or swelling. He continues to drink 4-5 beers a day, also smokes 1 ppd of cigarettes. He is on lamictal after a seizure from one of his prior strokes. He does report some pain around his tongue and thinks he may have bitten it. He denies shaking, loss of consciousness. He does have new trouble swallowing. Mental Status Mental Status Alert,Responsive,Cooperative Subjective Observations Subjective Pt was resting in bed when POOL HAND entered the room. Pt was agreeable to evaluation. Pt's came in later during the evaluation and was able to participate in education and evaluation. Oral Motor Lips Function Mild Impairment Tongue Function Mild Impairment Jaw Function WFL Soft Palate Function WFL Respiration/Phonation Phonation Function Moderately Impaired Conversation Loudness Reduced Loudness Diadochokinetic Rates Speech Intelligibility Conversation Severity Mildly Impaired Comments Reduced loudness impairs intelligibility Awareness/Strategy Use Description Type of awareness/use Uses intermittently Findings Details Motor Speech Function Mild-Moderate Impairment Type of Impairment Dysarthria Assessment Details Assessment Pt presents with mild oral weakness and dysarthria at this time. Pt tolerated diet and passed screening. However would recommend check for pocketed food/pills and continue to monitor diet as needed as the pt's nurse noted to observe this earlier in the day. Of note, pt has had speech therapy before but has not attended in awhile. POOL HAND went over breath support strategy to help increase volume and oral exercises to help increase oral strength. Pt and the pt's were agreeable with recommendations and plan of care. Prognosis Rehabilitation Potential Good Recommendations Treatment Recommended Yes Therapy Recommendations Monitor diet tolerance and home exercise program Short Term Goals Pt will follow through on exercises 3x daily with 2 verbal reminders Landing Signal Officer Goals Pt will follow through on home exercise program independently Pt will tolerate least restrictive diet and not demonstrate overt s/sx of aspiration. Patient/Family Education Education Described results of evaluation,Patient Understanding,Family Understanding,Patient Demonstration
--- NOTE | 2022-07-14 12:14 | PC.NURSE ---
Pt is alert occasional speech understood. Talks very quietly at baseline, follows commands, responds to some questions. Seizure pads on bed rails.
--- NOTE | 2022-07-14 12:59 | SLP.IPNOTE ---
This COMPLIANCE ANALYST spoke with social science research assistant this afternoon. Recommend SNF placement for the pt at this time.
--- NOTE | 2022-07-14 13:20 | CM.DANOTE ---
Initial DCP Assessment Note Patient is a 57 yo M resident of [place] presents with difficulty speaking and left sided weakness. PMH significant for prior CVAx2 w/residual left sided weakness, ETOH abuse and 1ppd smoker. MRI neg for stroke however Dr Moya suggesting additional imaging PCP Stephanie Galeas Met w/patient and spouse Adore. Spouse tearful as we discuss patient's current deficits and therapy's recommendation for SNF rehab. Patient has no hx of SNF or HH. patient cannot effectively communicate at this time, speech is low and jumbled, movements are not coordinated Patient and spouse have two sons (patient's step sons) and a 14 yo daughter together. Patient indp at baseline. Spouse reports patient drinks approx 5 beers at night, no hard alcohol. Spouse asks that patient have a nicotine patch ...which this NURSE ESTHETICIAN discussed w/Dr Moya after bedside visit Discussed process for SNF search . Spouse indicates they cannot pay anything out of pocket. Discussed SNF choices and spouse has no preference at this time, requests that this NURSE ESTHETICIAN see which SNFs will take patient's [facility]. Explained that if there is no SNF secured spouse will need to take patient home w/HH services. Spouse stated agreement and said their children may be able to help her take care of patient during his recovery SNF referrals started to the following: [facility], [facility], [facility], [facility], [facility], [facility]. [facility] completed According to Veronica, PT and Alda PUPPY SITTER- patient could not tolerate acute inpatient rehab at this time CM team will plan to follow closely for coordination of DCP IZT Schaefer Discharge Planning/Care Management CM Discharge Assessment Start: 07/14/22 12:58 Freq: Status: Active Protocol: Document 07/14/22 12:58 CRISTA (Rec: 07/14/22 13:20 CRISTA [id number]) Discharge Planning Assessment Assigned Collar Stitcher ITZ Proctor DPOA/Assigned Designee Name Adore Dhillon, spouse Contact Information [phone] Advance Directives? No History Provided By Family Member,Medical Record Has Patient been admitted in last 30 No days? Prior Living Arrangements House Household Members spouse,children Type of transporation used prior to Drives own vehicle admit Independent with ADL's Yes Is patient alert and oriented? Yes Needs Assistance With Meal Prep Patient/Family Preference [facility]dc Facility Barriers to Discharge Yes Comment Patient far from baseline today, PT/PUPPY SITTER recommending SNF Discharge Plan [facility] Facility Referrals Initiated [facility] Additional Comment Patient has [facility] and patient/spouse cannot pay out of pocket for SNF
[2022-07-14] MEDS: NICOTINE 21 MG PATCH TOP (16:33)
--- NOTE | 2022-07-14 17:49 | P.PN_ITS ---
Subjective Subjective Interval history: 57 year old male admitted with weakness and dysarthria, symptoms continue today. PT recommended SNF rehab vs Acute rehab, OT home with outpatient. thinks he is a bit more agitated today. No tongue fasciculations or tremors today. Placed on CIWA protocol and started nicotine patch. Exam Vital Signs (past 8 hours): Oxygen Delivery Method Room Air Oxygen Flow Rate 0 Narrative Exam Narrative: Exam Narrative: GENERAL APPEARANCE: Well developed, well nourished, in no acute distress. SKIN: Inspection of the skin reveals no rashes, ulcerations or petechiae. HEENT:? Normocephalic atraumatic, extraocular muscles are intact, oropharynx is clear and mucous membranes are moist, neck is supple without adenopathy. Poor dentition, no obvious tongue lacerations. NECK: Supple and symmetric. There was no thyroid enlargement, and no tenderness, or masses were felt. CHEST: Normal AP diameter and normal contour without any kyphoscoliosis. LUNGS: Auscultation of the lungs revealed no wheezes, rhonchi, or rales. CARDIOVASCULAR: There was a regular rate and rhythm without any murmurs, gallops, rubs. Peripheral pulses were 2+ and symmetric. ABDOMEN: Soft and nontender with normal bowel sounds. No ascites was noted. MUSCULOSKELETAL: There was no tenderness or effusions noted. Muscle strength and tone were normal. EXTREMITIES: No cyanosis, clubbing or edema. NEUROLOGIC: Unable to assess orientation due to dyarthria, but appears alert and oriented, follows commands and answers simple questions accurately. Strength is +5/5 in the Upper Extremities and Lower Extremities Bilaterally, but right is weaker than left which is also chronically weak at baseline. Objective Labs 07/14/22 04:46 07/14/22 04:46 Labs: Laboratory Results - last 24 hr 07/14/22 07/14/22 07/14/22 04:46 04:46 04:46 WBC 8.3 RBC 4.10 L Hgb 13.4 L Hct 38.9 L MCV 94.8 MCH 32.7 MCHC 34.5 RDW 12.9 Plt Count 264 Neut % (Auto) 69.5 Lymph % (Auto) 20.6 L [place] % (Auto) 5.2 Eos % (Auto) 4.0 Baso % (Auto) 0.7 Neut # (Auto) 5800 Lymph # (Auto) 1700 [place] # (Auto) 400 Eos # (Auto) 300 Baso # (Auto) 100 Sodium 137 Potassium 3.6 Chloride 103 Carbon Dioxide 27 BUN 11 Creatinine 0.72 Estimated GFR > 60 BUN/Creatinine Ratio 15.3 Glucose 99 Calcium 8.8 Magnesium 2.0 Triglycerides 49 Cholesterol 190 LDL Cholesterol, Calc 131 H HDL Cholesterol 49 TSH 0.98 PFSH Medical History HTN (hypertension) Hyperlipidemia Stroke Surgical History H/O carotid endarterectomy Social History household members: spouse and children Smoking Status: Current every day smoker alcohol intake: current Assessment & Plan Assessment & Plan narrative: Pérez Dhillon is a 54-year-old male with past medical history of hypertension, hyperlipidemia, prior CVA x2with residual left-sided weakness,ETOH abuse who started experiencing difficulty speaking per his this morning upon awakening, along with worsening imbalance and unilateral weakness. 1. Right weakness, dysarthria, acute - suspect Acute CVA, less likely seizure - MR negative, but may have missed new acute infarct based on history and exam.Given lack of improvement over time, no seizure evidence this suggests new CVA. Differentials includes seizure, less likely metabolic or infectious. Lamictal level ordered by the ER. - no changes to medications per tele-stroke service in the ER. - NIH q shift until tomorrow, 3 on my initial assesment - PT/OT to continue, PT recommended SNF vs acute rehab, OT home. - continue home asa and statin therapy. 2. Hypertension ?- continue home amlodipine, HCTZ 3. Alcohol abuse - [facility] protocol ordered, patient drinks approximately 4-5 beers per day, last drink was night prior to admission. ?- monitor for withdrawal though no prior severe withdrawal 4. Hyperlipidemia ?- continue home statin, increased to 80 mg from 40. 5. Prior seizure disorder ?- due to prior CVA, continue lamictal. Lamictal level sent in ER Code:? Full surrogate is patient's spouse Dispo:? Admitted under inpatient status as his stay is expected to exceed 2 midnights. Discussed different options including home vs SNF vs Acute. They are possibly interested in acute rehab vs home. Will depend on continued therapy evaluations. I have utilized all available immediate resources to obtain, update, or review the patient's current medications. Additional history obtained via document review, ER provider, and patient's spouse. I have personally reviewed patient's relevant labs and imaging from current visit, and EKGs. Discussed plan of care with patient's spouse. COVID-19 COVID-19 status: Negative Quality VTE Deep Vein Thrombosis/Pulmonary Embolism Present on Admission: No MIPS - Admit I confirm the patient?s Advance Care Plan is present, Code status is documented, Surrogate decision maker is in patient?s record [If Yes, STOP here]: Yes
[2022-07-14] MEDS: ATORVASTATIN 20 MG TABLET 80 MG PO (21:36)
[2022-07-15] VITALS (8 sets, daily range): BP systolic 134–191; BP diastolic 68–96; PULSE 55–67; RESP 16–19; TEMP 36.3–36.6; O2SAT 92–97
[2022-07-15 06:00] LABS: Add Manual Diff / Slide Review NO; Basophils Absolute Auto 0 /uL (0-100); Basophils Percent Auto 0.6 % (0-2); Eosinophils Absolute Auto 300 /uL (0-450); Eosinophils Percent Auto 4.4 % (2-4); Hematocrit 41.8 % (41-53); Hemoglobin 14.5 g/dL (13.5-17.5); Lymphocytes Absolute Auto 1900 /uL (1100-4500); Lymphocytes Percent Auto 24.8 % (25-40); Mean Corpuscular HGB Conc 34.6 % (30-36); Mean Corpuscular Hemoglobin 32.7 PG (26-34); Mean Corpuscular Volume 94.3 fL (80-100); Monocytes Absolute Auto 500 /uL (0-900); Monocytes Percent Auto 6.1 % (3-14); Neutrophils Absolute Auto 4800 /uL (1500-7000); Neutrophils Percent Auto 64.1 % (50-75); Platelet Count 258 X10^3/uL (150-400); Red Blood Cell Count 4.43 X10^6/uL (4.5-5.9); White Blood Cell Count 7.5 X10^3/uL (4.5-11.0)
[2022-07-15 06:08] LABS: BUN Creatinine Ratio 18.6 (6-22); Blood Urea Nitrogen 16 mg/dL (9-20); Calcium 9.2 mg/dL (8.4-10.2); Carbon Dioxide 32 mmol/L (22-32); Chloride 97 mmol/L (98-107); Estimated Glomerular Filt Rate > 60 mL/min (>60); Glucose 102 mg/dL (70-100); HEMOLYSIS < 15 (0-50); Magnesium 1.9 mg/dL (1.6-2.3); Potassium 3.7 mmol/L (3.4-5.1); Sodium 134 mmol/L (137-145)
[2022-07-15] MEDS: ASPIRIN EC 81 MG TABLET PO (09:40)
[2022-07-15] MEDS: FOLIC ACID 1 MG TABLET PO (09:40)
[2022-07-15] MEDS: MULTIVITAMIN 1 TABLET 1 TAB PO (09:40)
[2022-07-15] MEDS: NICOTINE 21 MG PATCH TOP (09:40)
[2022-07-15] MEDS: hydroCHLOROthiazide 25 MG TABLET PO (09:40)
[2022-07-15] MEDS: CITALOPRAM 10 MG TABLET 40 MG PO (09:41)
[2022-07-15] MEDS: THIAMINE 100 MG TABLET PO (09:41)
[2022-07-15] MEDS: lamoTRIgine 100 MG TABLET 200 MG PO ×2 (09:41→21:01)
[2022-07-15] MEDS: ENOXAPARIN 40 MG/0.4 ML SYRINGE SUBCUT (09:41)
--- NOTE | 2022-07-15 11:02 | PT.IPTN ---
Current Diagnoses Cerebral infarction, unspecified (07/13/22) Physical Therapy Treatment Note M2 PT-IP Current Condition Start: 07/14/22 13:08 Freq: NEEDED Status: Active Protocol: Document 07/14/22 11:05 AB (Rec: 07/14/22 13:25 AB [id number]) Physical Therapy Current Condition Current Condition Evaluation Date 07/14/22 Treatment Diagnosis r/o CVA; difficulty in walking Onset Date 07/13/22 M3 PT-IP Subjective Start: 07/14/22 13:08 Freq: NEEDED Status: Active Protocol: Document 07/15/22 10:32 KS (Rec: 07/15/22 12:15 KS [id number]) Subjective Physical Therapy Visit Type Type Treatment Note Visit Start Time 10:32 Visit Stop Time 11:02 Total Visit Minutes 30 Number of AUTHORIZATION REPRESENTATIVE Visits 1 Physical Therapy Visit Comments Patient Comments present, agreeable to try ambulating M4 PT-IP Mobility and Gait Start: 07/14/22 13:08 Freq: NEEDED Status: Active Protocol: Document 07/15/22 10:32 KS (Rec: 07/15/22 12:15 KS [id number]) PT-Bed Mobility Assessment Supine to Sit Supine to Sit Moderate Assistance,1 Person Assistance,Head of Bed Elevated Scooting Scooting to Edge of Bed Maximum Assistance PT-Transfer Assessment Sit to and From Stand Sit to and from Stand Moderate Assistance,2 Person Assistance,Use of Upper Extremities Equipment Transfer Assistive Device Gait Belt,Front Wheeled Walker Orthotic/Prosthetic Devices or Brace: No Transfers Transfer Destination Bed,Chair Transfer Technique ambulated Transfer Ability Level of Assist Moderate Assistance,2 Person Assistance Comments Mobility Comments Pt in bed upon arrival, impulsively trying to get up but followed cues to remain in bed and wait for instructions . present and wanting to assist. Pt required Mod A for sup<>Sit and Max A for scooting EOB. assisted in pt sit<>Stand w/ FWW, Mod A x2. Pt required max cues for upright posture and shifting weight forward scooting feet underneath COM. Pt able to march in place before stand step pivot to chair Mod Ax2 max cues. RN arrived to provide chair follow and pt ambulated ~15 ft w/ FWW Mod A x2 w/ cues for FWW mgmt and elevating feet from floor d/t minimal ground clearance. Left in chair w/ all needs in reach. Gait Assessment Gait Gait Assistance Required: Moderate Assistance,2 Person Assist Distance (Feet) 15 Able to Maintain Weight Bearing Status Yes During Gait Assistive Devices Assistive Device Gait Belt,Front Wheeled Walker Orthotic/Prosthetic Devices or Brace: No Gait Deviations General Gait Pattern Ataxic,Decreased Stride Length ,Decreased Feet Clearance,Step -to Gait Factors Limiting Gait Function Factors Limiting Gait Function Decreased Activity Tolerance, Decreased Sensation,Decreased Strength,Difficulty Following Directions,Incoordination, Limited Range of Motion,Poor Balance,Poor Safety Awareness Comments Gait Comments See mobility section Stair Climbing Assessment Comments Stair Climbing Comments not assessed PT-Balance Assessment Sitting Balance and Reactions Static Sitting Balance Ability Good Dynamic Sitting Balance Ability Fair Standing Balance and Reactions Static Standing Balance Ability Poor Dynamic Standing Balance Ability Poor Device Used FWW M5 PT-IP Objective Assessments Start: 07/14/22 13:08 Freq: NEEDED Status: Active Protocol: Document 07/14/22 11:05 AB (Rec: 07/14/22 13:25 AB [id number]) Orientation Orientation/Cognition Level of Alertness Alert Orientation Name Language Function Ability Expressive Aphasia Safety Awareness Decreased Safety Awareness Gross Range of Motion Lower Extremity ROM Assessment Within Functional Limits Strength Lower Extremity Strength Assessment Right Impaired Hip 3+/5 Knee 3+/5 Sensation Assessment Sensation Gross Sensation Left UE Impaired Sensation Description Numbness Comments Sensation Comments decrease L hand sensation per spouse from previous CVA M6 PT-IP Treatment Start: 07/14/22 13:08 Freq: NEEDED Status: Active Protocol: Document 07/15/22 10:32 KS (Rec: 07/15/22 12:15 KS [id number]) Physical Therapy Treatment Education Education Provided Safety M7 PT-IP Assessment and Plan Start: 07/14/22 13:08 Freq: NEEDED Status: Active Protocol: Document 07/15/22 10:32 KS (Rec: 07/15/22 12:15 KS [id number]) PT Summary Assessment and Plan Potential Rehabilitation Potential Fair Summary Impairments Strength,Balance,Coordination, Sensation Progress Towards Goals Slow Progress due to Medical Issues Assessment Summary Pt remains limited in functional mobility, however did demonstrate some progress today. Mod to Max A for bed mobility, Mod A x2 for transfer and ambulation w/ FWW . He is slightly impulsive but follows cues well and was motivated during treatment. Increased ambulation distance to 15 ft w/ chair follow, had LLE buckling x2. High fall risk, will require SNF to improve. Goals Bed Mobility Goal Independent Transfer Goal Minimal Assistance,Front Wheeled Walker Gait Goal Minimal Assistance,Front Wheel Walker Gait Distance 150 Other Goals improve transfers and ambulation using FWW SBA ~ 200 ft up/down 1 step using FWW SBA up/down 11 steps R rail /SENIOR INSTRUMENTATION ENGINEER SBA Days to Meet Goals 10 Frequency of Treatment Frequency Of Treatment Once a Day Treatment Plan Physical Therapy Treatment Plan Bed Mobility Training,Transfer Training,Gait Training, Therapeutic Exercise,Balance Retraining,Discharge Planning, Hot or Cold Pack,Neuromuscular Re-ed,Coordination Retraining ,Manual Therapy Precautions Other Precautions falls Recommendations To Nursing Amount of Assist Needed 2 Person Assist Discharge Recommendations PT Discharge Recommendations SNF Rehab,Acute Rehab,SNF vs Acute Rehab Transportation Needs at Discharge Wheelchair/Cabulance
--- NOTE | 2022-07-15 11:32 | CM.DPC ---
DCP Acute Rehab vs SNF Per MD, pt making progress but not yet medically stable to d/c today and feels pt would benefit from Acute Inpt Rehab and per PT/ST recommending Acute Rehab. OT pending. SW met bedside with pt and spouse and explained role and discussed in depth the options of Acute Inpt Rehab vs SNF vs HH/outpt. Pt able to confirm along with spouse that they are agreeable with referrals to [facility] and [facility] to see if pt can be accepted and bed availability. Acute Rehab is currently their preference. SW called [facility] admissions and they anticipate some beds in the next 1-2 days. SW faxed referral to both [facility] and [facility] Acute. SW also discussed SNF as a backup and they are agreeable with referrals to [facility] contracted SNFs. [facility] left msg stating they are not contracted with [facility]. SW refaxed referral to [facility] and left msg. [facility] reviewing and contracted. [facility] reviewing and contracted. [facility] not [facility]. [facility] reviewing. [facility] was previously done. Plan: SW to follow closely for Acute Rehab review vs SNF under [facility] and to update pt and family. Airam Saucedo, ROCK LOADER
--- NOTE | 2022-07-15 13:10 | PC.NURSE ---
Assess- Patient is alert and oriented. His NIH score is 7. Patient has a hx of cva/tia. He has aphagia from previous hx of cva. He does have some drift to l arm and l leg. Patients states that he has a nervous habit of moving his left arm and hand to his face. He ambulated in the room with one person assist and walker. He denies pain and took his medication whole in pudding. He is sitting up in the chair and resting. is a good help to patient as she is a senior computer specialist.
--- NOTE | 2022-07-15 14:25 | P.PN_ITS ---
Subjective Subjective Interval history: 57 year old male admitted with weakness and dysarthria, symptoms continue today. PT recommended SNF rehab vs Acute rehab, OT home with outpatient. No tongue fasciculations or tremors today. He denies complaints but has minimal speech. Exam Vital Signs (past 8 hours): - 07/15/22 06:57 07/15/22 09:00 07/15/22 13:00 Temperature 97.4 F L Pulse Rate 61 Respiratory Rate 19 Blood Pressure 154/86 H Pulse Oximetry 95 Oxygen Delivery Method Room Air Room Air Oxygen Flow Rate 0 07/15/22 08:00 07/15/22 12:00 Temperature 97.8 F 97.9 F Pulse Rate 67 55 L Respiratory Rate 18 17 Blood Pressure 140/68 134/68 Pulse Oximetry 92 95 Oxygen Delivery Method Oxygen Flow Rate 0 0 Oxygen Delivery Method Room Air Oxygen Flow Rate 0 Narrative Exam Narrative: Exam Narrative: GENERAL APPEARANCE: Well developed, well nourished, in no acute distress. SKIN: Inspection of the skin reveals no rashes, ulcerations or petechiae. HEENT:? Normocephalic atraumatic, extraocular muscles are intact, oropharynx is clear and mucous membranes are moist, neck is supple without adenopathy. Poor dentition, no obvious tongue lacerations. NECK: Supple and symmetric. There was no thyroid enlargement, and no tenderness, or masses were felt. CHEST: Normal AP diameter and normal contour without any kyphoscoliosis. LUNGS: Auscultation of the lungs revealed no wheezes, rhonchi, or rales. CARDIOVASCULAR: There was a regular rate and rhythm without any murmurs, gallops, rubs. Peripheral pulses were 2+ and symmetric. ABDOMEN: Soft and nontender with normal bowel sounds. No ascites was noted. MUSCULOSKELETAL: There was no tenderness or effusions noted. Muscle strength and tone were normal. EXTREMITIES: No cyanosis, clubbing or edema. NEUROLOGIC: Unable to assess orientation due to dyarthria, but appears alert and oriented, follows commands and answers simple questions accurately. Strength is +5/5 in the Upper Extremities and Lower Extremities Bilaterally, but right is weaker than left which is also chronically weak at baseline. Objective Labs 07/15/22 04:49 07/15/22 04:49 Labs: Laboratory Results - last 24 hr 05/21/23 05/21/23 04:49 04:49 WBC 7.5 RBC 4.43 L Hgb 14.5 Hct 41.8 MCV 94.3 MCH 32.7 MCHC 34.6 RDW 13.0 Plt Count 258 Neut % (Auto) 64.1 Lymph % (Auto) 24.8 L Maverick % (Auto) 6.1 Eos % (Auto) 4.4 H Baso % (Auto) 0.6 Neut # (Auto) 4800 Lymph # (Auto) 1900 Maverick # (Auto) 500 Eos # (Auto) 300 Baso # (Auto) 0 Sodium 134 L Potassium 3.7 Chloride 97 L Carbon Dioxide 32 BUN 16 Creatinine 0.86 Estimated GFR > 60 BUN/Creatinine Ratio 18.6 Glucose 102 H Calcium 9.2 Magnesium 1.9 PFSH Medical History HTN (hypertension) Hyperlipidemia Stroke Surgical History H/O carotid endarterectomy Social History household members: spouse and children Smoking Status: Current every day smoker alcohol intake: current Assessment & Plan Assessment & Plan narrative: Pérez Dhillon is a 54-year-old male with past medical history of hypertension, hyperlipidemia, prior CVA x2with residual left-sided weakness,ETOH abuse who started experiencing difficulty speaking per his this morning upon awakening, along with worsening imbalance and unilateral weakness. 1. Right weakness, dysarthria, acute - suspect Acute CVA, less likely seizure - MR negative, but may have missed new acute infarct based on history and exam.Given lack of improvement over time, no seizure evidence this suggests new CVA. Differentials includes seizure, less likely metabolic or infectious. Lamictal level ordered by the ER. - no changes to medications per tele-stroke service in the ER. - NIH q shift until tomorrow, 3 on my initial assesment - PT/OT to continue, PT recommended SNF vs acute rehab, OT home. - continue home asa and statin therapy. 2. Hypertension ?- continue home amlodipine, HCTZ 3. Alcohol abuse - [facility] protocol ordered, patient drinks approximately 4-5 beers per day, last drink was night prior to admission. ?- monitor for withdrawal though no prior severe withdrawal 4. Hyperlipidemia ?- continue home statin, increased to 80 mg from 40. 5. Prior seizure disorder ?- due to prior CVA, continue lamictal. Lamictal level sent in ER Code:? Full surrogate is patient's spouse Dispo:? Admitted under inpatient status as his stay is expected to exceed 2 midnights. Discussed different options including home vs SNF vs Acute. They are possibly interested in acute rehab vs home. Will depend on continued therapy evaluations. I have utilized all available immediate resources to obtain, update, or review the patient's current medications. Additional history obtained via document review, ER provider, and patient's spouse. I have personally reviewed patient's relevant labs and imaging from current visit, and EKGs. Discussed plan of care with patient's spouse. COVID-19 COVID-19 status: Negative Quality VTE Deep Vein Thrombosis/Pulmonary Embolism Present on Admission: No
[2022-07-15] MEDS: ATORVASTATIN 20 MG TABLET 80 MG PO (21:00)
[2022-07-16] VITALS (9 sets, daily range): BP systolic 102–133; BP diastolic 54–96; PULSE 59–87; RESP 12–18; TEMP 36.1–36.9; O2SAT 91–98
[2022-07-16 00:07] LABS: Labcorp Hemoglobin (Hb) A1c 5.8 % (4.8-5.6)
[2022-07-16 05:57] LABS: Add Manual Diff / Slide Review NO; Basophils Absolute Auto 100 /uL (0-100); Basophils Percent Auto 0.7 % (0-2); Eosinophils Absolute Auto 300 /uL (0-450); Eosinophils Percent Auto 3.9 % (2-4); Hematocrit 43.9 % (41-53); Hemoglobin 15.2 g/dL (13.5-17.5); Lymphocytes Absolute Auto 1700 /uL (1100-4500); Lymphocytes Percent Auto 19.4 % (25-40); Mean Corpuscular HGB Conc 34.6 % (30-36); Mean Corpuscular Hemoglobin 32.7 PG (26-34); Mean Corpuscular Volume 94.6 fL (80-100); Monocytes Absolute Auto 600 /uL (0-900); Monocytes Percent Auto 6.5 % (3-14); Neutrophils Absolute Auto 6100 /uL (1500-7000); Neutrophils Percent Auto 69.5 % (50-75); Platelet Count 253 X10^3/uL (150-400); Red Blood Cell Count 4.64 X10^6/uL (4.5-5.9); Red Cell Distribution Width 12.8 % (11.6-14.8); White Blood Cell Count 8.8 X10^3/uL (4.5-11.0)
[2022-07-16 06:09] LABS: BUN Creatinine Ratio 23.5 (6-22); Blood Urea Nitrogen 19 mg/dL (9-20); Calcium 9.2 mg/dL (8.4-10.2); Carbon Dioxide 30 mmol/L (22-32); Chloride 97 mmol/L (98-107); Estimated Glomerular Filt Rate > 60 mL/min (>60); Glucose 105 mg/dL (70-100); HEMOLYSIS < 15 (0-50); Magnesium 1.8 mg/dL (1.6-2.3); Potassium 3.5 mmol/L (3.4-5.1); Sodium 131 mmol/L (137-145)
--- NOTE | 2022-07-16 06:57 | PC.NURSE ---
Pt has had an uneventful shift; has denied c/o pain; no signs of ETOH withdrawal or worsening of neurological symptoms
[2022-07-16] MEDS: ASPIRIN EC 81 MG TABLET PO (10:08)
[2022-07-16] MEDS: FOLIC ACID 1 MG TABLET PO (10:08)
[2022-07-16] MEDS: ENOXAPARIN 40 MG/0.4 ML SYRINGE SUBCUT (10:08)
[2022-07-16] MEDS: lamoTRIgine 100 MG TABLET 200 MG PO ×2 (10:08→21:20)
[2022-07-16] MEDS: hydroCHLOROthiazide 25 MG TABLET PO (10:08)
[2022-07-16] MEDS: CITALOPRAM 10 MG TABLET 40 MG PO (10:08)
[2022-07-16] MEDS: THIAMINE 100 MG TABLET PO (10:09)
[2022-07-16] MEDS: NICOTINE 21 MG PATCH TOP (10:09)
[2022-07-16] MEDS: MULTIVITAMIN 1 TABLET 1 TAB PO (10:09)
--- NOTE | 2022-07-16 10:44 | OT.IP.EVAL ---
Current Diagnoses Cerebral infarction, unspecified (07/13/22) Past Medical History (Last Reviewed 07/13/22 @ 17:02 by Marcelino Moya DO) HTN (hypertension) Hyperlipidemia Stroke Surgical History (Last Reviewed 07/13/22 @ 17:02 by Marcelino Moya DO) H/O carotid endarterectomy Occupational Therapy Inpatient Evaluation/Re-Eval M1 PT/OT-IP Prior Functional Status Start: 07/14/22 13:08 Freq: NEEDED Status: Active Protocol: Document 07/16/22 10:49 CGR (Rec: 07/16/22 11:11 CGR [id number]) Medical Review Prior Functional Status Medical History Reviewed Yes Communication able to follow simple questions but have difficulty verbalizing needs. On this date he was able to speak when requested but prefers to use hand gestures. Mobility and Gait spouse in room and provided: PLOF and home set up info stated that pt requiring SBA with ambulation without AD but has been using a FWW for ~ 1 week due to unsteadiness Activities of Daily Living and IADL's spouse stated that she assists pt with dressing and shower needs at baseline Social History Household Members spouse,children Living Arrangements House Number of Floors (Floors) Two Floors Number of Stairs To Enter/Railing? has 1 step threshold from the garage without rails to enter the house has 11 steps with R rail ascending ( spouse assists pt with stair climbing) Home Environment Standard Height Toilet,Tub/ Shower Home Equipment Front Wheel Walker,Hand Held Shower,Grab Bars In Shower Additional Social History Comment pt has a recliner on the main level of the house M2 OT-IP Current Condition Start: 07/16/22 10:49 Freq: Status: Active Protocol: Document 07/16/22 10:49 CGR (Rec: 07/16/22 11:11 CGR [id number]) Occupational Therapy Current Condition Current Condition Evaluation Date 07/13/22 Treatment Diagnosis slurred speech, R weakness, hx of CVA with L weakness Diagnosis Onset Date 07/16/22 M3 OT- IP Subjective and Pain Start: 07/16/22 10:49 Freq: Status: Active Protocol: Document 07/16/22 10:49 CGR (Rec: 07/16/22 11:11 CGR [id number]) OT- Subjective Occupational Therapy Visit Type Type Initial Evaluation Visit Start Time 10:21 Visit Stop Time 10:44 Total Visit Minutes 23 Notes Pt agreeable to tranfer to chair. OT Pain Assessment Pain When Pain Assessed At Rest Pain Present Pain Present Denied Pain M4 OT- IP ADL's Start: 07/16/22 10:49 Freq: Status: Active Protocol: Document 07/16/22 10:49 CGR (Rec: 07/16/22 11:11 CGR [id number]) OT [id number] Comments OT Self-Feeding Comments not meal time OT ADL-Grooming General Evaluation Grooming Ability Maximum Assistance Areas Needing Assistance Face Washing Comments OT Grooming Comments Pt attemtped to wash face, is able to get hand to face but then moves the wash cloth around without touching his face. OT ADL-Oral Care General Eval Oral Care Ability Maximum Assistance Areas of Assistance Brushing Teeth Comments Oral Care Comments Pt with limited teeth. Pt squeezed a significant amount of tooth paste out holding the paste with his L hand, minimal got on the bruth. Pt uses R hand to get brush to mouth but then has difficulty getting it into his mouth and movement for brushing. OT ADL-Dressing General Eval Lower Body Dressing Ability Total Assistance Areas Needing Assistance Socks OT ADL-Toileting Comments OT Toileting Comments not performed OT ADL-Bathing Comments OT Bathing Comments not performed M5 OT- IP IADL's Start: 07/16/22 10:49 Freq: Status: Active Protocol: Document 07/16/22 10:49 CGR (Rec: 07/16/22 11:11 CGR [id number]) OT-Instrumental Activities of Daily Living Deficits IADL Deficits Identified Deficits Home Safety Awareness Awareness of Need for Assistance at Home Decreased Awareness Ability to Problem Solve Emergency Unable to Problem Solve Situations Medication Management Medication Management Caregiver Administers Money Management Money Management Caregiver Provides Assistance Meal Preparation Meal Preparation Caregiver Provides Assist Grinder Set Up Operator Gear Tool Grinder Set Up Operator Gear Tool Caregiver Provides Assist Driving Driving Comments Pt does not drive M6 OT- IP Functional Cognition Start: 07/16/22 10:49 Freq: Status: Active Protocol: Document 07/16/22 10:49 CGR (Rec: 07/16/22 11:11 CGR [id number]) Cognitive Factors Limiting Selfcare Function Cognitive Ability Level of Alertness Alert Attention Span Ability Capable of Focused Attention, Capable of Sustained Attention Ability to Follow Commands Able to Follow One Step Commands with Increased Time, Able to Follow One Step Commands with Repetition Cognitive Comments Cognitive Assessment Comments Pt with limited verbalizations , and only speaks when requested. Unable to get basic orientation. OT- Vision and Hearing OT- Hearing Assessment OT- Hearing Assessment WFL OT- Vision Assessment Visual Acuity No Vision Aides At Hospital Visual Attentiveness WFL Occular Pursuits WFL Visual Convergence WFL Visual Sparrow Impaired Vision Assessment Comments Pt indicates that he is unable to see the L lower quadrant when testing visual sparrow. Further testing warented. M7 OT- IP Mobility and Balance Start: 07/16/22 10:49 Freq: Status: Active Protocol: Document 07/16/22 10:49 CGR (Rec: 07/16/22 11:11 CGR [id number]) OT- Bed Mobility Assessment Supine to Sit Supine to Sit Assist Moderate Assistance Scooting Scooting to Edge of Bed Moderate Assistance OT-Transfer Assessment Sit to and From Stand Sit to and from Stand Maximum Assistance,1 Person Assistance Transfers Transfer Ability Maximum Assistance,1 Person Assistance Technique Transfer Destination Bed,Chair Transfer Technique Stand Step Pivot Devices Transfer Assistive Devices Gait Belt,Front Wheeled Walker Comments Mobility Comments Pt stood at bedside then returned to sitting while chair was set up. Pt leans/ pushes to the R with sitting and standing. Pt needed assist for maintain sitting after he had been sitting up for ~1 minute. Pt then transfered to the chair with max a and was able to take 4 small steps to the chair. OT- Gait Assessment Comments Gait Ability Comments not performed in this session OT- Balance Assessment Sitting Balance and Reactions Static Sitting Balance Ability Poor Dynamic Sitting Balance Ability Poor M8 OT- IP Objective Assessments Start: 07/16/22 10:49 Freq: Status: Active Protocol: Document 07/16/22 10:49 CGR (Rec: 07/16/22 11:11 CGR [id number]) OT Gross Range of Motion Upper Extremity Range of Motion Assessment Within Functional Limits ROM Impairments slow movement to the RUE with AAROM to end range. OT Strength Upper Extremity Strength Assessment Within Functional Limits Comments Strength Comments LUE grossly 4/5 RUE grossly 4-/5 OT- Coordination Assessment Upper Extremity Finger to Nose Test Bilateral UE Impaired Finger Tapping Test Bilateral UE Impaired Comments Coordination Comments Pt's R is slow and inaccurate while his L is fast adn inaccurate. OT-Muscle Tone Assessment Muscle Tone WNL Yes OT Sensation Assessment Edema Edema Absent M9 OT- IP Assessment and Plan Start: 07/16/22 10:49 Freq: Status: Active Protocol: Document 07/16/22 10:49 CGR (Rec: 07/16/22 11:11 CGR [id number]) OT Summary Assessment and Plan Potential Rehabilitation Potential Good Analytic Complexity at Evaluation High Summary OT Impairments Strength,Balance,Coordination, Functional Cognition, Functional Mobility,Self- Feeding,Grooming,Dressing, Toileting,Bathing,Toilet Transfers,Shower Transfers, Activity Tolerance Progress Towards Goals Slow Progress due to Medical Issues Assessment Summary Pt presents as a high complexity evaluation s/p admit for possible CVA. Pt has hx of CVA with L involvement now with new onset weakness and declines to coordination to the R. Pt is also unable to speak coherently at this time . Pt needed max a for transfer from bed to chair and exhibits pushing towards his R that are inconsistent with traditional pusher behavior. Pt will benefit from acute rehab given his recent deficits along with his hx of CVA. Recommend acute rehab. Goals Self-Feeding Goal Independent Grooming Goal Independent Dressing Goal Moderate Assistance Toileting Goal Standby Assistance Bathing Goal Moderate Assistance Toilet Transfer Goal Standby Assistance Shower Transfer Goal Moderate Assistance Days to Meet Goals 30 Frequency of Treatment Frequency Of Treatment Once a Day Treatment Plan OT Treatment Plan ADL Training,Functional Cognition Training,Functional Mobility,Neuromuscular Re- education,Therapeutic Exercises,Vision Retraining, Patient/Family Education, Discharge Planning Other Treatment Recommendations and Next Reassess LLQ vision, RUE Treatment Focus strengthening and coordination , transfers Discharge Recommendations OT Discharge Recommendations Acute Rehab Transportation Needs at Discharge Wheelchair/Cabulance
--- NOTE | 2022-07-16 14:55 | PT.IPTN ---
Current Diagnoses Cerebral infarction, unspecified (07/13/22) Physical Therapy Treatment Note M2 PT-IP Current Condition Start: 07/14/22 13:08 Freq: NEEDED Status: Active Protocol: Document 07/14/22 11:05 AB (Rec: 07/14/22 13:25 AB [id number]) Physical Therapy Current Condition Current Condition Evaluation Date 07/14/22 Treatment Diagnosis r/o CVA; difficulty in walking Onset Date 07/13/22 M3 PT-IP Subjective Start: 07/14/22 13:08 Freq: NEEDED Status: Active Protocol: Document 07/16/22 15:12 TS (Rec: 07/16/22 15:38 TS [id number]) Subjective Physical Therapy Visit Type Type Treatment Note Visit Start Time 14:55 Visit Stop Time 15:10 Total Visit Minutes 15 Number of POWERHOUSE LABORER Visits 2 Physical Therapy Visit Comments Patient Comments Daughter present in room. M4 PT-IP Mobility and Gait Start: 07/14/22 13:08 Freq: NEEDED Status: Active Protocol: Document 07/16/22 15:12 TS (Rec: 07/16/22 15:38 TS [id number]) PT-Bed Mobility Assessment Supine to Sit Supine to Sit Minimal Assistance,1 Person Assistance,Head of Bed Elevated Scooting Scooting to Edge of Bed Minimal Assistance PT-Transfer Assessment Sit to and From Stand Sit to and from Stand Minimal Assistance,1 Person Assistance Equipment Transfer Assistive Device Gait Belt,Front Wheeled Walker Orthotic/Prosthetic Devices or Brace: No Comments Mobility Comments Pt found resting in bed, agreeable to PT. Supine to sit Adele for uprighting trunk with LUE support, demonstrates good core strength. Pt sitting EOB leans to R affected side, provided tactile cues for weight shift to left side. Sit to stand x1 Adele, required hand over hand assist fro RUE on FWW. In standing pt retroleans/lateral lean to R, requires cues for weight shift to left, unablet o fully extend R knee. Pt ambulated ~15' Min/ModA for balance with ataxic gait, requires tactile cues for FWW management and step sequencing . Stand to sit in chair ModA for slow eccentric control, pt impulsive to sit. Pt was left in chair with call light nearby, chair alarm on, daughter present in room. Gait Assessment Gait Gait Assistance Required: Minimum Assistance,Moderate Assistance,1 Person Assist Distance (Feet) 15 Able to Maintain Weight Bearing Status Yes During Gait Assistive Devices Assistive Device Gait Belt,Front Wheeled Walker Orthotic/Prosthetic Devices or Brace: No Gait Deviations General Gait Pattern Ataxic,Decreased Stride Length ,Decreased Feet Clearance,Step -to Gait Factors Limiting Gait Function Factors Limiting Gait Function Decreased Activity Tolerance, Decreased Sensation,Decreased Strength,Difficulty Following Directions,Incoordination, Limited Range of Motion,Poor Balance,Poor Safety Awareness Comments Gait Comments not performed in this session Stair Climbing Assessment Comments Stair Climbing Comments not assessed PT-Balance Assessment Sitting Balance and Reactions Static Sitting Balance Ability Good Dynamic Sitting Balance Ability Fair Standing Balance and Reactions Static Standing Balance Ability Poor Dynamic Standing Balance Ability Poor Device Used FWW M5 PT-IP Objective Assessments Start: 07/14/22 13:08 Freq: NEEDED Status: Active Protocol: Document 07/14/22 11:05 AB (Rec: 07/14/22 13:25 AB [id number]) Orientation Orientation/Cognition Level of Alertness Alert Orientation Name Language Function Ability Expressive Aphasia Safety Awareness Decreased Safety Awareness Gross Range of Motion Lower Extremity ROM Assessment Within Functional Limits Strength Lower Extremity Strength Assessment Right Impaired Hip 3+/5 Knee 3+/5 Sensation Assessment Sensation Gross Sensation Left UE Impaired Sensation Description Numbness Comments Sensation Comments decrease L hand sensation per spouse from previous CVA M6 PT-IP Treatment Start: 07/14/22 13:08 Freq: NEEDED Status: Active Protocol: Document 07/16/22 15:12 TS (Rec: 07/16/22 15:38 TS [id number]) Physical Therapy Treatment Education Education Provided Safety M7 PT-IP Assessment and Plan Start: 07/14/22 13:08 Freq: NEEDED Status: Active Protocol: Document 07/16/22 15:12 TS (Rec: 07/16/22 15:38 TS [id number]) PT Summary Assessment and Plan Potential Rehabilitation Potential Fair Summary Impairments Strength,Balance,Coordination, Sensation Progress Towards Goals Progressing Toward Goals Assessment Summary Pt made progress in his mobiltiy this session. He was Adele for sitting EOB with assist for fully uprighting to EOB, demosntrated good core strength. He progressed his sit to stands to Adele for balance. Pt continues to ambulate short distances, requires Adele to ModA for retrolean and R sided lateral lean, remains a falls risk. He continues to be impulsive to move but can follow single step instructions well. PT recommends acute rehab to progress mobility independence for safe d/c home. Goals Bed Mobility Goal Independent Transfer Goal Minimal Assistance,Front Wheeled Walker Gait Goal Minimal Assistance,Front Wheel Walker Gait Distance 150 Other Goals improve transfers and ambulation using FWW SBA ~ 200 ft up/down 1 step using FWW SBA up/down 11 steps R rail /SUSTAINABILITY CONSULTANT SBA Days to Meet Goals 10 Frequency of Treatment Frequency Of Treatment Once a Day Treatment Plan Physical Therapy Treatment Plan Bed Mobility Training,Transfer Training,Gait Training, Therapeutic Exercise,Balance Retraining,Discharge Planning, Hot or Cold Pack,Neuromuscular Re-ed,Coordination Retraining ,Manual Therapy Precautions Other Precautions falls Recommendations To Nursing Amount of Assist Needed 1 Person Assist,2 Person Assist Discharge Recommendations PT Discharge Recommendations SNF Rehab,Acute Rehab,SNF vs Acute Rehab Transportation Needs at Discharge Wheelchair/Cabulance
--- NOTE | 2022-07-16 15:19 | ST.IPDYTX ---
Visit Care Team Role Provider Type Stephanie Felix MD Primary Care Provider Non-Staff Specialty: Family Practice Address: [address] [place] [address], [id number] Email: Josephine Mathur DO Emergency Provider Physician Referring Provider Specialty: Emergency Medicine Address: [address] [place] [address], [id number] Email: [email or web address] Marcelino Moya DO Admit Provider Physician Attending Provider Specialty: Internal Medicine Address: [address] [place] [address], [id number] Email: [email or web address] END MATCHER Dysphagia Treatment END MATCHER Clinical Instructor Line Start: 07/16/22 11:12 Freq: Status: Active Protocol: Document 07/16/22 13:57 BE (Rec: 07/16/22 14:29 BE [id number]) Clinical Instructor Signature Clinical Instructor Clinical Instructor Yes: Kimmie END MATCHER Dysphagia Treatment Start: 07/16/22 11:12 Freq: Status: Active Protocol: Document 07/16/22 13:57 BE (Rec: 07/16/22 14:29 BE [id number]) Dysphagia Treatment Session Time Visit Start Time 09:30 Visit Stop Time 09:55 Total Visit Minutes 25 Setting Assessment Location Acute Care Visit Type Note Type Treatment Note Next Note Type Next Note Type Treatment Note Patient Information Identification Type Name,ID Wristband Subjective Observations Pt was awake, laying in bed upon ST entry. He scooted himself slightly further up in bed, and agreed to being repositioned to upright. Pt agreed to participate in ST treatment. Treatment Liquids Trialed Thin Solids Trialed Regular Administration Type Self-Feeding,Dependent Feeding Oral Strategies Upright at 90 degrees Pharyngeal Strategies Sitting Upright (90 deg) Treatment Activities Observed pt attempt to eat breakfast (eggs, sausage, hashbrowns, coffee). Pt demonstrated great difficulty manipulating silverware. STs repositioned breakfast tray 2x to find optimal angles, and repositioned silverware 2x. Pt unable to cut soft food (eggs ) into bite size pieces, ST assisted. Pt independently transported eggs long term into mouth, was unable to independently get the rest of bite into mouth. Pt attempted to push eggs with spoon, hand, and move food with tongue without success. Pt not able to feed self, and requested assistance with silverware. Chewing was effortful and slow . Pt successfully drank thin liquid through straw with ST assistance (holding mug). Introduced yes/no board to aid in communication with care team/communication partners. Pt demonstrated reliable yes/ no response. Pt's dysarthric speech was unintelligible, with limited response to volume manipulation. Introduced yellow communication folder as augmentative communication means. Probed spelling reliability with prompt to spell Pérez using folder- spelling was imprecise and slow, with ultimate result of nonwords spelled. Assessment Assessment of Improvement Per previous notes, pt's verbal speech skills and oral phase dysphagia have both declined. Pt demonstrated limited ability to communicate wants/needs, and benefitted from visual yes/no board. Most verbalizations were vowel- like, with occasionally clear yes or no spoken utterances. Per nursing, pt recently woke up, which could have affected his communication. Nursing also reported pocketing during breakfast following ST exit. Recommend regular thin liquid, with downgraded diet of solids to dysphagia mechanical to reduce chewing effort. Recommend checking for pocketing, and 1:1 hand-under -hand assistance with silverware manipulation. Diet Recommendations Recommendations Downgrade Diet Order Liquids Order Thin Diet Order Dysphagia Mechanical Medication Recommendations As Tolerated Additional Dietary Needs 1:1 Assistance Aspiration Precautions Recommended Precautions Upright at 90 Degrees,Small Bites/Sips,Check for Pocketing Treatment Plan Placement Recommendation after Discharge Long-Term Facility Appropriate for Continued Therapy Yes Therapy Recommendations Monitor diet tolerance and home exercise program Dysphagia Goals 1. Pt will tolerate least restrictive diet to meet nutrition and hydration needs. 2. Pt will use total communication (AAC, verbal, gestures) to communicate wants and needs.
[2022-07-16] MEDS: LORazepam 1 MG TABLET PO (15:44)
--- NOTE | 2022-07-16 15:49 | CM.DPC ---
DCP Acute Rehab Planning Per MD, pt making progress and likely could d/c today if SNF or Acute Rehab secured. SW called [facility] and confirmed they will have beds tomorrow Tues and will start Prime auth today. SW confirmed with PT/OT that pt could safely d/c via POV as spouse is a VAT TENDER. SW met bedside with pt and spouse and updated on acceptance at [facility] and spouse confirms she feels comfortable with providing transport at d/c and SW provided the Acute Rehab brochure with contact info and address. Plan: SW to follow for plan of pt d/c to [facility] Rehab via spouse POV tomorrow Tu if medically stable. ITZ Reyes
[2022-07-16 16:07] LABS: Lamotrigine Lamictal 10.9 ug/mL (2.0-20.0)
--- NOTE | 2022-07-16 18:53 | P.PN_ITS ---
Subjective Subjective Interval history: Patient still aphasic. Pending placement to acute rehab. and daughter at bedside. Exam Vital Signs (past 8 hours): - 07/16/22 11:00 07/16/22 12:30 07/16/22 14:00 Temperature 97.2 F L 97 F L Pulse Rate 70 65 Respiratory Rate 18 Blood Pressure 116/96 H 103/54 L Pulse Oximetry 91 98 Oxygen Delivery Method Room Air Oxygen Flow Rate 0 0 07/16/22 15:44 Temperature 97.7 F Pulse Rate 64 Respiratory Rate 16 Blood Pressure 102/64 Pulse Oximetry 95 Oxygen Delivery Method Oxygen Flow Rate 0 Oxygen Delivery Method Room Air Oxygen Flow Rate 0 Narrative Exam Narrative: Exam Narrative: GENERAL APPEARANCE: Well developed, well nourished, in no acute distress. SKIN: Inspection of the skin reveals no rashes, ulcerations or petechiae. HEENT:? Normocephalic atraumatic, extraocular muscles are intact, oropharynx is clear and mucous membranes are moist, neck is supple without adenopathy. Poor dentition, no obvious tongue lacerations. NECK: Supple and symmetric. There was no thyroid enlargement, and no tenderness, or masses were felt. CHEST: Normal AP diameter and normal contour without any kyphoscoliosis. LUNGS: Auscultation of the lungs revealed no wheezes, rhonchi, or rales. CARDIOVASCULAR: There was a regular rate and rhythm without any murmurs, gallops, rubs. Peripheral pulses were 2+ and symmetric. ABDOMEN: Soft and nontender with normal bowel sounds. No ascites was noted. MUSCULOSKELETAL: There was no tenderness or effusions noted. Muscle strength and tone were normal. EXTREMITIES: No cyanosis, clubbing or edema. NEUROLOGIC: Unable to assess orientation due to dyarthria, but appears alert and oriented, follows commands and answers simple questions accurately. Strength is +5/5 in the Upper Extremities and Lower Extremities Bilaterally, but right is weaker than left which is also chronically weak at baseline. Objective Labs 07/16/22 05:24 07/16/22 05:24 Labs: Laboratory Results - last 24 hr 07/13/22 07/14/22 07/16/22 10:04 04:46 05:24 WBC 8.8 RBC 4.64 Hgb 15.2 Hct 43.9 MCV 94.6 MCH 32.7 MCHC 34.6 RDW 12.8 Plt Count 253 Neut % (Auto) 69.5 Lymph % (Auto) 19.4 L Hitchcock % (Auto) 6.5 Eos % (Auto) 3.9 Baso % (Auto) 0.7 Neut # (Auto) 6100 Lymph # (Auto) 1700 Hitchcock # (Auto) 600 Eos # (Auto) 300 Baso # (Auto) 100 Sodium Potassium Chloride Carbon Dioxide BUN Creatinine Estimated GFR BUN/Creatinine Ratio Glucose Hgb A1c (Ref Lab) 5.8 H Calcium Magnesium Lamotrigine 10.9 07/16/22 05:24 WBC RBC Hgb Hct MCV MCH MCHC RDW Plt Count Neut % (Auto) Lymph % (Auto) Hitchcock % (Auto) Eos % (Auto) Baso % (Auto) Neut # (Auto) Lymph # (Auto) Hitchcock # (Auto) Eos # (Auto) Baso # (Auto) Sodium 131 L Potassium 3.5 Chloride 97 L Carbon Dioxide 30 BUN 19 Creatinine 0.81 Estimated GFR > 60 BUN/Creatinine Ratio 23.5 H Glucose 105 H Hgb A1c (Ref Lab) Calcium 9.2 Magnesium 1.8 Lamotrigine [facility] Medical History HTN (hypertension) Hyperlipidemia Stroke Surgical History H/O carotid endarterectomy Social History household members: spouse and children Smoking Status: Current every day smoker alcohol intake: current Assessment & Plan Assessment & Plan narrative: Pérez Dhillon is a 54-year-old male with past medical history of hypertension, hyperlipidemia, prior CVA x2with residual left-sided weakness,ETOH abuse who started experiencing difficulty speaking per his this morning upon awakening, along with worsening imbalance and unilateral weakness. 1. Right weakness, dysarthria, acute - suspect Acute CVA, less likely seizure - MR negative, but may have missed new acute infarct based on history and exam. Given lack of improvement over time, no seizure evidence this suggests new CVA. Differentials includes seizure, less likely metabolic or infectious. Lamictal level ordered by the ER. - no changes to medications per tele-stroke service in the ER. - NIH q shift - PT/OT to continue, PT recommended acute rehab - continue home asa and statin therapy. 2. Hypertension ?- continue home amlodipine, HCTZ 3. Alcohol abuse - [facility] protocol ordered, patient drinks approximately 4-5 beers per day, last drink was night prior to admission. ?- monitor for withdrawal though no prior severe withdrawal 4. Hyperlipidemia ?- continue home statin, increased to 80 mg from 40. 5. Prior seizure disorder ?- due to prior CVA, continue lamictal. Lamictal level normal at 10. Code:? Full surrogate is patient's spouse Dispo:? Pending acute rehab placement. COVID-19 COVID-19 status: Negative Quality VTE Deep Vein Thrombosis/Pulmonary Embolism Present on Admission: No
[2022-07-16] MEDS: ATORVASTATIN 20 MG TABLET 80 MG PO (21:21)
[2022-07-17] VITALS (14 sets, daily range): BP systolic 97–137; BP diastolic 61–83; PULSE 58–71; RESP 15–18; TEMP 36.2–36.8; O2SAT 93–97
[2022-07-17] MEDS: hydroCHLOROthiazide 25 MG TABLET PO (09:35)
[2022-07-17] MEDS: CITALOPRAM 10 MG TABLET 40 MG PO (09:35)
[2022-07-17] MEDS: MULTIVITAMIN 1 TABLET 1 TAB PO (09:35)
[2022-07-17] MEDS: ASPIRIN EC 81 MG TABLET PO (09:35)
[2022-07-17] MEDS: FOLIC ACID 1 MG TABLET PO (09:35)
[2022-07-17] MEDS: THIAMINE 100 MG TABLET PO (09:35)
[2022-07-17] MEDS: lamoTRIgine 100 MG TABLET 200 MG PO ×2 (09:35→21:51)
[2022-07-17] MEDS: ENOXAPARIN 40 MG/0.4 ML SYRINGE SUBCUT (09:35)
[2022-07-17] MEDS: NICOTINE 21 MG PATCH TOP (09:35)
--- NOTE | 2022-07-17 11:00 | PT.IPTN ---
Current Diagnoses Cerebral infarction, unspecified (07/13/22) Physical Therapy Treatment Note M2 PT-IP Current Condition Start: 07/14/22 13:08 Freq: NEEDED Status: Active Protocol: Document 07/14/22 11:05 AB (Rec: 07/14/22 13:25 AB [id number]) Physical Therapy Current Condition Current Condition Evaluation Date 07/14/22 Treatment Diagnosis r/o CVA; difficulty in walking Onset Date 07/13/22 M3 PT-IP Subjective Start: 07/14/22 13:08 Freq: NEEDED Status: Active Protocol: Document 07/17/22 11:17 TS (Rec: 07/17/22 11:43 TS [id number]) Subjective Physical Therapy Visit Type Type Treatment Note Visit Start Time 11:00 Visit Stop Time 11:17 Total Visit Minutes 17 Number of FIELD CHECKER Visits 3 M4 PT-IP Mobility and Gait Start: 07/14/22 13:08 Freq: NEEDED Status: Active Protocol: Document 07/17/22 11:17 TS (Rec: 07/17/22 11:43 TS [id number]) PT-Bed Mobility Assessment Supine to Sit Supine to Sit Moderate Assistance,1 Person Assistance,Head of Bed Elevated Scooting Scooting to Edge of Bed Moderate Assistance PT-Transfer Assessment Sit to and From Stand Sit to and from Stand Moderate Assistance,1 Person Assistance Equipment Transfer Assistive Device Gait Belt,Front Wheeled Walker Orthotic/Prosthetic Devices or Brace: No Comments Mobility Comments Pt found asleep in bed, alert when awakened, agreeable to PT . Supine to sit with HOB elevated ModA for uprighting trunk and LE assist, provided cues for BUE support pt has difficulty coordinating and has minimal use of RUE. Pt scooted to EOB with ModA, leans posteriorly requiring ModA for sitting balance. Pt sat EOB with Adele/ModA for poor balance, RLE rigid and has difficulty extending foot all the way to floor. Sit to stand x1 ModA for R lateral lean. He ambulated ~15' to bedside chair w/FWW MaxA for balance, R sided weakness, and ataxic gait, requires assist propelling FWW forward. Pt was left in chair with call light nearby, chair alarm on. Gait Assessment Gait Gait Assistance Required: Maximum Assistance,1 Person Assist Distance (Feet) 15 Able to Maintain Weight Bearing Status Yes During Gait Assistive Devices Assistive Device Gait Belt,Front Wheeled Walker Orthotic/Prosthetic Devices or Brace: No Gait Deviations General Gait Pattern Ataxic,Decreased Stride Length ,Decreased Feet Clearance,Step -to Gait Factors Limiting Gait Function Factors Limiting Gait Function Decreased Activity Tolerance, Decreased Sensation,Decreased Strength,Difficulty Following Directions,Incoordination, Limited Range of Motion,Poor Balance,Poor Safety Awareness Comments Gait Comments See mobility comments. Stair Climbing Assessment Comments Stair Climbing Comments not assessed PT-Balance Assessment Sitting Balance and Reactions Static Sitting Balance Ability Good Dynamic Sitting Balance Ability Fair Standing Balance and Reactions Static Standing Balance Ability Poor Dynamic Standing Balance Ability Poor Device Used FWW Comments Other Balance Tests/Deviations/Treatment Requires ModA-MaxA for : standing balance due to R sided weakness and incoordination. M5 PT-IP Objective Assessments Start: 07/14/22 13:08 Freq: NEEDED Status: Active Protocol: Document 07/14/22 11:05 AB (Rec: 07/14/22 13:25 AB [id number]) Orientation Orientation/Cognition Level of Alertness Alert Orientation Name Language Function Ability Expressive Aphasia Safety Awareness Decreased Safety Awareness Gross Range of Motion Lower Extremity ROM Assessment Within Functional Limits Strength Lower Extremity Strength Assessment Right Impaired Hip 3+/5 Knee 3+/5 Sensation Assessment Sensation Gross Sensation Left UE Impaired Sensation Description Numbness Comments Sensation Comments decrease L hand sensation per spouse from previous CVA M6 PT-IP Treatment Start: 07/14/22 13:08 Freq: NEEDED Status: Active Protocol: Document 07/17/22 11:17 TS (Rec: 07/17/22 11:43 TS [id number]) Physical Therapy Treatment Education Education Provided Safety M7 PT-IP Assessment and Plan Start: 07/14/22 13:08 Freq: NEEDED Status: Active Protocol: Document 07/17/22 11:17 TS (Rec: 07/17/22 11:43 TS [id number]) PT Summary Assessment and Plan Potential Rehabilitation Potential Fair Summary Impairments Strength,Balance,Coordination, Sensation Progress Towards Goals Progressing Toward Goals Assessment Summary Pt is requiring increased assistance this morning with all mobility. He is more impulsive with mobility this session and has increased rigidity/spasticity in torso and RLE. He required ModA with HOB elevated for supine to sit, ModA for scooting to EOB and for sit to stand. He required increased assist to MaxA for ambualtion ~15' to chair and required assistance propelling FWW forward. PT recommends acute vs SNF rehab at this time. Pt would benefit from continued skilled therapy. Goals Bed Mobility Goal Independent Transfer Goal Minimal Assistance,Front Wheeled Walker Gait Goal Minimal Assistance,Front Wheel Walker Gait Distance 150 Other Goals improve transfers and ambulation using FWW SBA ~ 200 ft up/down 1 step using FWW SBA up/down 11 steps R rail /ROAD TRAIN DRIVER SBA Days to Meet Goals 10 Frequency of Treatment Frequency Of Treatment Once a Day Treatment Plan Physical Therapy Treatment Plan Bed Mobility Training,Transfer Training,Gait Training, Therapeutic Exercise,Balance Retraining,Discharge Planning, Hot or Cold Pack,Neuromuscular Re-ed,Coordination Retraining ,Manual Therapy Precautions Other Precautions falls Recommendations To Nursing Amount of Assist Needed 1 Person Assist,2 Person Assist Discharge Recommendations PT Discharge Recommendations SNF Rehab,Acute Rehab,SNF vs Acute Rehab Transportation Needs at Discharge Wheelchair/Cabulance
--- NOTE | 2022-07-17 13:39 | CM.DPC ---
DCP Acute Rehab planning Per MD, pt remains medically stable for rehab and does not appear to be having ETOH withdrawals and only had one small dose of Ativan yesterday and CIWA have been 0 and 1. ERIS called [facility] [place] at 0830 and inquired about insurance auth and acceptance today. Keke stated they had not received the multiple attempts of faxing and emailing yesterday and SW had to refax clinicals this morning. ERIS called [facility] [place] again at 1100 and left detailed msg stating pt ready for d/c and if they had submitted auth and requested call back master. ERIS called again multiple times and left messages and emailed. Return call finally from Keke at [facility] [place] [place] apologizing again as they had not reviewed yet or submitted auth. ERIS called [facility] admissions and left msg regarding pt's referral as they had left msg stating they could likely accept if needed to see if they can accept today. ERIS left msg with [facility] as they had received referral and were following to see if pt would d/c to Acute rehab vs SNF. Return call during this time from Keke at [facility] [place] [place] stating they had reviewed and called spouse and confirm they can accept and just submitted for Prime auth just now 1300 in anticipation of accepting pt tomorrow pending auth. Plan: SW to follow closely for plan of [facility] [place] [place] [facility] 07/18/22 pending Prime auth via spouse POV. ITZ Reyes
--- NOTE | 2022-07-17 14:04 | OT.IP.TRT ---
Current Diagnoses Cerebral infarction, unspecified (07/13/22) Occupational Therapy Treatment Note M2 OT-IP Current Condition Start: 07/16/22 10:49 Freq: Status: Active Protocol: Document 07/16/22 10:49 CGR (Rec: 07/16/22 11:11 CGR [id number]) Occupational Therapy Current Condition Current Condition Evaluation Date 07/13/22 Treatment Diagnosis slurred speech, R weakness, hx of CVA with L weakness Diagnosis Onset Date 07/16/22 M3 OT- IP Subjective and Pain Start: 07/16/22 10:49 Freq: Status: Active Protocol: Document 07/17/22 13:30 [facility] (Rec: 07/17/22 14:23 [facility] [id number]) OT- Subjective Occupational Therapy Visit Type Type Treatment Note Visit Start Time 13:30 Visit Stop Time 14:04 Total Visit Minutes 34 Occupational Therapy Visit Comments Patient Comments Pt agreed to work with OT as pt's feeding him lunch. Patient/Caregiver Goals TO get better. OT Pain Assessment Pain When Pain Assessed At Rest Pain Present Pain Present Denied Pain M4 OT- IP ADL's Start: 07/16/22 10:49 Freq: Status: Active Protocol: Document 07/17/22 13:30 [facility] (Rec: 07/17/22 14:23 [facility] [id number]) OT IOI-Amzo-Dtsnrka General Evaluation Self-Feeding Ability Total Assistance Comments OT Self-Feeding Comments Pt not able to bring spoon to his mouth at this time. Pt able to hold spoon but unable to supinate and lift his right arm up to self feed himself. Therefore had pt focus on feeding to make sure to eat slowly and clear his mouth. OT ADL-Grooming General Evaluation Grooming Ability Moderate Assistance Areas Needing Assistance Face Washing Comments OT Grooming Comments Pt able to use wash cloth with right and left hand to wash the bottom on his face today. Pt will need assist to wash the top on his face. OT ADL-Oral Care Comments Oral Care Comments Not performed as pt having lunch. M5 OT- IP IADL's Start: 07/16/22 10:49 Freq: Status: Active Protocol: Document 07/16/22 10:49 CGR (Rec: 07/16/22 11:11 CGR [id number]) OT-Instrumental Activities of Daily Living Deficits IADL Deficits Identified Deficits Home Safety Awareness Awareness of Need for Assistance at Home Decreased Awareness Ability to Problem Solve Emergency Unable to Problem Solve Situations Medication Management Medication Management Caregiver Administers Money Management Money Management Caregiver Provides Assistance Meal Preparation Meal Preparation Caregiver Provides Assist Bottom Painter Bottom Painter Caregiver Provides Assist Driving Driving Comments Pt does not drive M6 OT- IP Functional Cognition Start: 07/16/22 10:49 Freq: Status: Active Protocol: Document 07/17/22 13:30 [facility] (Rec: 07/17/22 14:23 [facility] [id number]) Cognitive Factors Limiting Selfcare Function Cognitive Comments Cognitive Assessment Comments Pt is aware of his name. Pt still having difficulty to vocalize his words. M7 OT- IP Mobility and Balance Start: 07/16/22 10:49 Freq: Status: Active Protocol: Document 07/17/22 13:30 [facility] (Rec: 07/17/22 14:23 [facility] [id number]) OT- Bed Mobility Assessment Sit to Supine Sit to Supine Assist Maximum Assistance,1 Person Assistance OT-Transfer Assessment Sit to and From Stand Sit to and from Stand Moderate Assistance,2 Person Assistance Transfers Transfer Ability Moderate Assistance,2 Person Assistance Technique Transfer Destination Bed,Chair Transfer Technique Stand Step Pivot Devices Transfer Assistive Devices None,Gait Belt Comments Mobility Comments Able to stand pt's with MODA X 2 and able to take steps to the bed with assist to help hold pt for balance. OT- Balance Assessment Sitting Balance and Reactions Static Sitting Balance Ability Poor Dynamic Sitting Balance Ability Poor Standing Balance and Reactions Static Standing Balance Ability Poor Dynamic Standing Balance Ability Poor M9 OT- IP Assessment and Plan Start: 07/16/22 10:49 Freq: Status: Active Protocol: Document 07/17/22 13:30 [facility] (Rec: 07/17/22 14:23 [facility] [id number]) OT Summary Assessment and Plan Potential Rehabilitation Potential Good Analytic Complexity at Evaluation High Summary OT Impairments Strength,Balance,Coordination, Functional Cognition, Functional Mobility,Self- Feeding,Grooming,Dressing, Toileting,Bathing,Toilet Transfers,Shower Transfers, Activity Tolerance Progress Towards Goals Slow Progress due to Medical Issues,Slow Progress due to Activity Tolerance Assessment Summary Pt able to use right hand to wash the bottom on his hand today and able to hold an utensil but not able to manipulate the spoon so able to feed his self. In addition pt having RUE weakness. Pt would greatly benefit from acute rehab at this time. Pt has a very supportive to assist with his needs. Goals Self-Feeding Goal Independent Grooming Goal Independent Dressing Goal Moderate Assistance Toileting Goal Standby Assistance Bathing Goal Moderate Assistance Toilet Transfer Goal Standby Assistance Shower Transfer Goal Moderate Assistance Days to Meet Goals 30 Frequency of Treatment Frequency Of Treatment Once a Day Treatment Plan OT Treatment Plan ADL Training,Functional Cognition Training,Functional Mobility,Neuromuscular Re- education,Therapeutic Exercises,Vision Retraining, Patient/Family Education, Discharge Planning Other Treatment Recommendations and Next Reassess LLQ vision, RUE Treatment Focus strengthening and coordination , transfers Discharge Recommendations OT Discharge Recommendations Acute Rehab Transportation Needs at Discharge Wheelchair/Cabulance
--- NOTE | 2022-07-17 15:46 | ST.IPTN ---
Visit Care Team Role Provider Type Stephanie Felix MD Primary Care Provider Non-Staff Address: [address] [place] [address], [id number] Josephine Mathur, Emergency Provider Physician Referring Provider Address: [address] [place] [address], [id number] Marcelino Moya, Admit Provider Physician Attending Provider Address: [address] [place] [address], [id number] [employer] Treatment Note [employer] Clinical Instructor Line Start: 07/16/22 11:12 Freq: Status: Active Protocol: Document 07/17/22 10:13 BE (Rec: 07/17/22 10:38 BE [id number]) Clinical Instructor Signature Clinical Instructor Clinical Instructor Yes: Patricia Krause [employer] Treatment Note Start: 07/17/22 10:13 Freq: Status: Active Protocol: Document 07/17/22 10:13 BE (Rec: 07/17/22 10:38 BE [id number]) Speech Pathology Treatment Note Session Time Visit Start Time 09:45 Visit Stop Time 10:00 Total Visit Minutes 15 Setting Treatment Setting Acute Care Visit Type Note Type Treatment Note Next Note Type Next Note Type Treatment Note General Information Patient History Per hospitalist on 07/14/22, Pt is a 54-year-old male with PMHx of hypertension, hyperlipidemia, prior CVA x2 with residual left-sided weakness, ETOH abuse who started experiencing difficulty speaking per his , along with some left sided weakness and imbalance starting this yesterday morning when he woke up around 6 am, last known normal was yesterday afternoon. Patient is difficult to understand for complex answers due to difficulty speaking currently. states he is much declined from his baseline. He denied headache, palpitations , chest pain, shortness of breath, cough, nausea, vomiting, abdominal pain or swelling. He continues to drink 4-5 beers a day, also smokes 1 ppd of cigarettes. He is on lamictal after a seizure from one of his prior strokes. He does report some pain around his tongue and thinks he may have bitten it. He denies shaking, loss of consciousness. He does have new trouble swallowing. Subjective Identification Type Name,ID Wristband Others Present Student Observations/Patient Presentation Pt was sitting upright in bed when RESTU[employer]ANT [employer] WORKER entered the room, taking medication with nurse's assistance. Nurse reported no trouble with medication, and low appetite during breakfast. Chief Complaint(s) Speech,Swallowing,Other Additional Areas of Concern total body motor Objective Health It Specialist Goals 1. Pt will tolerate least restrictive diet to meet nutrion and hydration needs 2. Pt will use total communication (AAC, verbal, gestures) to communicate wants and needs Treatment Activities PT denied having difficulty with new diet. Pt attempted verbal responses frequently to questions, which resulted in unintelligible vowel sounds. Used communication board to prompt yes/no responses using signage with success. Pt demonstrated ability to follow simple one-step directions and read. He had continued to be challenged by spelling using the communication board, pointing in the general direction of prompted letters. Possible left-sided neglect. Pt can be prompted to respond with head nodding/shaking with reliability. Cued to grab drink with left hand- which appears to have greater fine motor dexterity- continued to use right hand, and demonstrated difficulty bringing cup with straw to mouth. ST assisted. Assessment Impairments Identified Expressive language,Speech, Swallow Assessment of Overall Progress Declining Assessment of Improvement Pt's verbal speech skills have declined, and consist mainly of vowel-like utterances. Pt frequently requires cueing to attempt alternate forms of communication (gestures, communication board). Pt demonstrated limited ability to communication wants/needs, and benefitted from visual yes /no board. Yes/no response and reading appear to be intact. Spelling is not reliable. Continuing pt on dysphagia mechanical diet with thin liquids, due to musculature effort and incoordination. Nursing reports continued pocketing of food. Plan Therapeutic Contents AAC,Swallowing/Feeding
--- NOTE | 2022-07-17 18:34 | P.PN_ITS ---
Subjective Subjective Interval history: No changes today in speech. Still awaiting acute rehab acceptance which will occur tomorrow per ENGINEERING PROFESSOR. Exam Vital Signs (past 8 hours): - 07/17/22 12:30 07/17/22 12:35 07/17/22 14:00 Temperature 98.2 F Pulse Rate 71 Respiratory Rate 18 Blood Pressure 97/61 116/67 Pulse Oximetry 97 95 Oxygen Delivery Method Room Air Oxygen Flow Rate 0 0 07/17/22 16:32 07/17/22 17:56 Temperature 98.1 F Pulse Rate 65 Respiratory Rate 18 Blood Pressure 134/76 Pulse Oximetry 96 94 Oxygen Delivery Method Room Air Oxygen Flow Rate 0 0 Oxygen Delivery Method Room Air Oxygen Flow Rate 0 Narrative Exam Narrative: Exam Narrative: GENERAL APPEARANCE: Well developed, well nourished, in no acute distress. SKIN: Inspection of the skin reveals no rashes, ulcerations or petechiae. HEENT:? Normocephalic atraumatic, extraocular muscles are intact, oropharynx is clear and mucous membranes are moist, neck is supple without adenopathy. Poor dentition, no obvious tongue lacerations. NECK: Supple and symmetric. There was no thyroid enlargement, and no tenderness, or masses were felt. CHEST: Normal AP diameter and normal contour without any kyphoscoliosis. LUNGS: Auscultation of the lungs revealed no wheezes, rhonchi, or rales. CARDIOVASCULAR: There was a regular rate and rhythm without any murmurs, gallops, rubs. Peripheral pulses were 2+ and symmetric. ABDOMEN: Soft and nontender with normal bowel sounds. No ascites was noted. MUSCULOSKELETAL: There was no tenderness or effusions noted. Muscle strength and tone were normal. EXTREMITIES: No cyanosis, clubbing or edema. NEUROLOGIC: Unable to assess orientation due to dyarthria, but appears alert and oriented, follows commands and answers simple questions accurately. Strength is +5/5 in the Upper Extremities and Lower Extremities Bilaterally, but right is weaker than left which is also chronically weak at baseline. Objective Labs 07/16/22 05:24 07/16/22 05:24 [facility] Medical History HTN (hypertension) Hyperlipidemia Stroke Surgical History H/O carotid endarterectomy Social History household members: spouse and children Smoking Status: Current every day smoker alcohol intake: current Assessment & Plan Assessment & Plan narrative: Pérez Dhillon is a 54-year-old male with past medical history of hypertension, hyperlipidemia, prior CVA x2with residual left-sided weakness,ETOH abuse who started experiencing difficulty speaking per his this morning upon awakening, along with worsening imbalance and unilateral weakness. 1. Right weakness, dysarthria, acute - suspect Acute CVA, less likely seizure - MR negative, but may have missed new acute infarct based on history and exam. Given lack of improvement over time, no seizure evidence this suggests new CVA. Differentials includes seizure, less likely metabolic or infectious. Lamictal level ordered by the ER. - no changes to medications per tele-stroke service in the ER. - NIH q shift - PT/OT to continue, PT recommended acute rehab - continue home asa and statin therapy. 2. Hypertension ?- continue home amlodipine, HCTZ 3. Alcohol abuse - CIWA protocol ordered, patient drinks approximately 4-5 beers per day, last drink was night prior to admission. - monitor for withdrawal though no prior severe withdrawal 4. Hyperlipidemia ?- continue home statin, increased to 80 mg from 40. 5. Prior seizure disorder ?- due to prior CVA, continue lamictal. Lamictal level normal at 10. Code:? Full Proxy: surrogate is patient's spouse Dispo:? Dc to acute rehab on 07/18. COVID-19 COVID-19 status: Negative Quality VTE Deep Vein Thrombosis/Pulmonary Embolism Present on Admission: No
[2022-07-17] MEDS: ATORVASTATIN 20 MG TABLET 80 MG PO (21:51)
[2022-07-18 03:40] VITALS: BP 127/72; PULSE 69; RESP 14; TEMP 36.2; O2SAT 96
[2022-07-18 06:00] VITALS: O2SAT 96
[2022-07-18 08:00] VITALS: BP 118/69; PULSE 66; RESP 15; TEMP 36.2; O2SAT 96
[2022-07-18] MEDS: lamoTRIgine 100 MG TABLET 200 MG PO (09:17)
[2022-07-18] MEDS: CITALOPRAM 10 MG TABLET 40 MG PO (09:17)
[2022-07-18] MEDS: ENOXAPARIN 40 MG/0.4 ML SYRINGE SUBCUT (09:17)
[2022-07-18] MEDS: MULTIVITAMIN 1 TABLET 1 TAB PO (09:17)
[2022-07-18] MEDS: FOLIC ACID 1 MG TABLET PO (09:17)
[2022-07-18] MEDS: hydroCHLOROthiazide 25 MG TABLET PO (09:17)
[2022-07-18] MEDS: ASPIRIN EC 81 MG TABLET PO (09:17)
[2022-07-18] MEDS: NICOTINE 21 MG PATCH TOP (09:18)
[2022-07-18] MEDS: THIAMINE 100 MG TABLET PO (09:21)
--- NOTE | 2022-07-18 09:45 | ST.IPTN ---
Visit Care Team Role Provider Type Stephanie Felix MD Primary Care Provider Non-Staff Address: [address] [place] [address], [id number] Josephine Mathur, Emergency Provider Physician Referring Provider Address: [address] [place] [address], [id number] Marcelino Moya DO Admit Provider Physician Attending Provider Address: [address] [place] [address], [id number] GREASE REFINER OPERATOR Treatment Note GREASE REFINER OPERATOR Clinical Instructor Line Start: 07/16/22 11:12 Freq: Status: Active Protocol: Document 07/18/22 09:32 BE (Rec: 07/18/22 09:44 BE [id number]) Clinical Instructor Signature Clinical Instructor Clinical Instructor Yes: Patricia Krause GREASE REFINER OPERATOR Treatment Note Start: 07/17/22 10:13 Freq: Status: Active Protocol: Document 07/18/22 09:32 BE (Rec: 07/18/22 09:44 BE [id number]) Speech Pathology Treatment Note Session Time Visit Start Time 09:00 Visit Stop Time 09:30 Total Visit Minutes 30 Setting Treatment Setting Acute Care Visit Type Note Type Treatment Note Next Note Type Next Note Type Treatment Note General Information Patient History Per hospitalist on 07/14/22, Pt is a 54-year-old male with PMHx of hypertension, hyperlipidemia, prior CVA x2 with residual left-sided weakness, ETOH abuse who started experiencing difficulty speaking per his , along with some left sided weakness and imbalance starting this yesterday morning when he woke up around 6 am, last known normal was yesterday afternoon. Patient is difficult to understand for complex answers due to difficulty speaking currently. states he is much declined from his baseline. He denied headache, palpitations , chest pain, shortness of breath, cough, nausea, vomiting, abdominal pain or swelling. He continues to drink 4-5 beers a day, also smokes 1 ppd of cigarettes. He is on lamictal after a seizure from one of his prior strokes. He does report some pain around his tongue and thinks he may have bitten it. He denies shaking, loss of consciousness. He does have new trouble swallowing. Subjective Identification Type Name,ID Wristband Others Present Student Observations/Patient Presentation Pt was sitting upright in bed when GREASE REFINER OPERATOR entered the room. Chief Complaint(s) Speech,Swallowing,Other Additional Areas of Concern total body motor Objective Residential Goals 1. Pt will tolerate least restrictive diet to meet nutrion and hydration needs 2. Pt will use total communication (AAC, verbal, gestures) to communicate wants and needs Treatment Activities Pt had food leftover from breakfast pocketed in his mouth when ST checked. Cued to swallow, and cleared food with liquid wash. Pt attempted verbal responses frequently to questions, which mostly resulted in unintelligible vowel sounds. He successfully communicated some wants/needs using approximations (i.e., ap-po for apple sauce) and gestures (pointing to bed then signing flat). Introduced new communication board with larger symbols and yes/no option, and Pérez demonstrated understanding of its' use. Nursing reported that he continues to have difficulty chewing/swallowing during meals, ST recommending puree diet. Wrote communication strategies board for staff/ communication partners and hung behind bed next to dietary needs board. Explained board to Sushma Ortez read board and agreed with communication suggestions. Attempted partial OME: pt's lip pucker demonstrated greater ROM. Tongue could not extend tongue beyond teeth, but was able to lateralize tongue within mouth. Some improvement noted during straw sip with lip strength. Assessment Impairments Identified Expressive language,Speech, Swallow Assessment of Overall Progress Declining Assessment of Improvement Pt's verbal speech skills have improved from yesterday. Speech consists mainly of vowel-like utterances, but he showed emerging use of audible word approximates. Pt relies on cueing to attempt alternate forms of communication ( gestures, communication board) during most interactions, but is starting to independently implement gestures more frequently. Pt demonstrated emerging ability to communication wants/needs, and benefitted from visual yes/no board. Yes/no response and reading appear to be intact. Spelling is not reliable. Downgrading pt to IDDSI 4 ( puree) diet with thin liquids, due to musculature effort, continued pocketing and incoordination. Plan Therapeutic Contents AAC,Swallowing/Feeding
[2022-07-18 10:00] VITALS: O2SAT 96
--- NOTE | 2022-07-18 11:46 | PM.DS.1 ---
History of Present Illness History of Present Illness Date Patient Seen: 07/13/22 Time Patient Seen: 16:40 Chief complaint: Says stroke Narrative: Pérez Dhillon is a 54-year-old male with past medical history of hypertension, hyperlipidemia, prior CVA x2with residual left-sided weakness,ETOH abuse? who started experiencing difficulty speaking per his , along with some left sided weakness and imbalance starting this morning when he woke up around 6am, last known normal was yesterday afternoon. Patient is difficult to understand for complex answers due to difficulty speaking currently. states he is much declined from his baseline. He denied headache, palpitations, chest pain, shonrtness of breath, cough, nausea, vomiting, abdominal pain or sweeling. He continues to drink 4-5 beers a day, also smokes 1 ppd of cigarettes. He is on lamictal after a seizure from one of his prior strokes. He does report some pain around his tongue and thinks he may have bitten it. He denies shaking, loss of consciousness. He does have new trouble swallowing. In the emergency room, initial vital signs were notable for hypertension. initial laboratory studies were unremarkable.? COVID-[address] head and CTA showed no acute findings, though his prior carotid stent appeared to be 70% stenosed. MRI showed his prior R MCA infarct, but no acute events were found. However, patient remained much diminished from baseline, unclear if due to MR negative CVA, TIA, or ? seizure. Discharge Providers Provider Date of admission: 07/13/22 16:41 Discharge Date: 07/18/22 Primary care physician: Stephanie Felix MD Consults: 07/13/22 17:53 Consult to Discharge Planning Routine Comment: Consult to Occupational Therapy Evaluate & Treat Comment: Physician Instructions: Evaluate and treat Consult to Physical Therapy Evaluate & Treat Comment: Physician Instructions: Evaluate and Treat Consult to Speech Therapy Evaluate & Treat Comment: Physician Instructions: Evaluate and treat Discharge provider: Hector Friedman DO Summary Hospital Course Discharge Diagnosis: 1. Right weakness, dysarthria, acute - suspect Acute CVA, less likely seizure - MR negative, but may have missed new acute infarct based on history and exam. Given lack of improvement over time, no seizure evidence this suggests new CVA. Differentials includes seizure, less likely metabolic or infectious. Lamictal level ordered by the ER. - no changes to medications per tele-stroke service in the ER. - PT/OT to continue, PT recommended acute rehab - continue home asa and statin therapy. -SECURITY MESSENGER rec pureed diet due to difficulty chewing 2. Hypertension ?- continue home amlodipine, HCTZ 3. Alcohol abuse - [facility] protocol ordered, patient drinks approximately 4-5 beers per day, last drink was night prior to admission. - monitor for withdrawal though no prior severe withdrawal 4. Hyperlipidemia ?- continue home statin, increased to 80 mg from 40. 5. Prior seizure disorder ?- due to prior CVA, continue lamictal. Lamictal level normal at 10. Hospital Course: Admitted for acute onset dysarthria, balance and gait instability and left-sided weakness. Concern for stroke but MRI brain normal. Treated for potential stroke regardless with aspirin and statin. Drinks alcohol and went through mild withdrawals. PT/OT/speech recommended acute rehab. Transferred to [facility] for rehab. Time Spent with Patient Time spent: Greater than 30 minutes Exam Vital Signs (past 8 hours): - 07/18/22 06:00 07/18/22 08:00 07/18/22 07:00 Temperature 97.2 F L Pulse Rate 66 Respiratory Rate 15 Blood Pressure 118/69 Pulse Oximetry 96 96 Oxygen Delivery Method Room Air Room Air Oxygen Flow Rate 0 07/18/22 10:00 Temperature Pulse Rate Respiratory Rate Blood Pressure Pulse Oximetry 96 Oxygen Delivery Method Room Air Oxygen Flow Rate 0 Oxygen Delivery Method Room Air Oxygen Flow Rate 0 Narrative Exam Narrative: Exam Narrative: GENERAL APPEARANCE: Well developed, well nourished, in no acute distress. SKIN: Inspection of the skin reveals no rashes, ulcerations or petechiae. HEENT:? Normocephalic atraumatic, extraocular muscles are intact, oropharynx is clear and mucous membranes are moist, neck is supple without adenopathy. Poor dentition, no obvious tongue lacerations. NECK: Supple and symmetric. There was no thyroid enlargement, and no tenderness, or masses were felt. CHEST: Normal AP diameter and normal contour without any kyphoscoliosis. LUNGS: Auscultation of the lungs revealed no wheezes, rhonchi, or rales. CARDIOVASCULAR: There was a regular rate and rhythm without any murmurs, gallops, rubs. Peripheral pulses were 2+ and symmetric. ABDOMEN: Soft and nontender with normal bowel sounds. No ascites was noted. MUSCULOSKELETAL: There was no tenderness or effusions noted. Muscle strength and tone were normal. EXTREMITIES: No cyanosis, clubbing or edema. NEUROLOGIC: Unable to assess orientation due to dyarthria, but appears alert and oriented, follows commands and answers simple questions accurately. Strength is +5/5 in the Upper Extremities and Lower Extremities Bilaterally, but right is weaker than left which is also chronically weak at baseline. Objective Labs 07/16/22 05:24 07/16/22 05:24 [facility] Medical History HTN (hypertension) Hyperlipidemia Stroke Surgical History H/O carotid endarterectomy Social History household members: spouse and children Smoking Status: Current every day smoker alcohol intake: current Discharge Plan Discharge Plan Patient Disposition: [facility] Acute [facility] Hospital Discharge Data Primary Care Provider: Stephanie Felix VTE Deep Vein Thrombosis/Pulmonary Embolism Present on Admission: No
[2022-07-18 12:00] VITALS: BP 138/70; PULSE 59; RESP 16; TEMP 36.6; O2SAT 99
--- NOTE | 2022-07-18 13:23 | CM.DPNOTE ---
DC Note Placed call to [email or web address] P [phone], Customer service P [phone] Case Management. Spoke with numerous staff members and requested escalation of this auth so that patient could discharge today to start immediate stroke rehab at [facility] acute rehab Received call from Daisha at [facility] updating that auth was in place Ref # [id number] Patient needs to be to [facility] between [id number] d/t a pending discharge and bed turnover. In addition,the accepting provider cannot accept patient later than [address] Friedman who is completing DC orders Spoke w/spouse Adore who was originally planning on attending a work training today until 1600 however decided to leave early in order to get patient to [facility] by 1600. Spouse appreciative and agreeable to plan Updated RN Jennie and provided nurse to nurse report number, requested contact w/[facility] before patient leaves the building DC Summary faxed to Daisha at [facility] per her request Plan: Discharge to [facility] acute rehab this afternoon, transport via spouse kiah TOBIN
[2022-07-18 14:00] VITALS: O2SAT 99
--- NOTE | 2022-07-18 14:53 | OT.IP.TRT ---
Current Diagnoses Cerebral infarction, unspecified (07/13/22) Occupational Therapy Treatment Note M2 OT-IP Current Condition Start: 07/16/22 10:49 Freq: Status: Discharge Protocol: Document 07/16/22 10:49 CGR (Rec: 07/16/22 11:11 CGR [id number]) Occupational Therapy Current Condition Current Condition Evaluation Date 07/13/22 Treatment Diagnosis slurred speech, R weakness, hx of CVA with L weakness Diagnosis Onset Date 07/16/22 M3 OT- IP Subjective and Pain Start: 07/16/22 10:49 Freq: Status: Discharge Protocol: Document 07/18/22 14:32 [facility] (Rec: 07/18/22 15:15 [facility] [id number]) OT- Subjective Occupational Therapy Visit Type Type Treatment Note Visit Start Time 14:32 Visit Stop Time 14:53 Total Visit Minutes 21 Occupational Therapy Visit Comments Patient Comments Pt wanting to get dressed prior to being picked up by his for acute rehab. Patient/Caregiver Goals TO get better. OT Pain Assessment Pain When Pain Assessed At Rest Pain Present Pain Present Denied Pain M4 OT- IP ADL's Start: 07/16/22 10:49 Freq: Status: Discharge Protocol: Document 07/18/22 14:32 [facility] (Rec: 07/18/22 15:15 [facility] [id number]) OT UXQ-Ahmz-Jurdeor Comments OT Self-Feeding Comments not performed OT ADL-Grooming Comments OT Grooming Comments not performed OT ADL-Oral Care Comments Oral Care Comments not performed OT ADL-Dressing General Eval Upper Body Dressing Ability Moderate Assistance Lower Body Dressing Ability Maximum Assistance Comments OT Dressing Comments Pt able to assist to bridge on the bed so able to pull up the left side on his brief and pants. OT ADL-Toileting Comments OT Toileting Comments Pt tried to use the urinal with set-up and not able to go at this time. OT ADL-Bathing Comments OT Bathing Comments Nursing aid assist pt prior for sponge bath. M5 OT- IP IADL's Start: 07/16/22 10:49 Freq: Status: Discharge Protocol: Document 07/16/22 10:49 [facility] (Rec: 07/16/22 11:11 CGR [id number]) OT-Instrumental Activities of Daily Living Deficits IADL Deficits Identified Deficits Home Safety Awareness Awareness of Need for Assistance at Home Decreased Awareness Ability to Problem Solve Emergency Unable to Problem Solve Situations Medication Management Medication Management Caregiver Administers Money Management Money Management Caregiver Provides Assistance Meal Preparation Meal Preparation Caregiver Provides Assist Brazer Furnace Brazer Furnace Caregiver Provides Assist Driving Driving Comments Pt does not drive M6 OT- IP Functional Cognition Start: 07/16/22 10:49 Freq: Status: Discharge Protocol: Document 07/18/22 14:32 [facility] (Rec: 07/18/22 15:15 [facility] [id number]) Cognitive Factors Limiting Selfcare Function Cognitive Comments Cognitive Assessment Comments Pt able to follow commands and use of hand gestures to try to get his needs met. M7 OT- IP Mobility and Balance Start: 07/16/22 10:49 Freq: Status: Discharge Protocol: Document 07/18/22 14:32 [facility] (Rec: 07/18/22 15:15 [facility] [id number]) OT- Bed Mobility Assessment Supine to Sit Supine to Sit Assist Moderate Assistance OT-Transfer Assessment Sit to and From Stand Sit to and from Stand Maximum Assistance/MODA Transfers Transfer Ability Moderate Assistance,Maximum Assistance,2 Person Assistance Technique Transfer Destination Car,Wheelchair Transfer Technique Stand Step Pivot Devices Transfer Assistive Devices Gait Belt Comments Mobility Comments Squat pivot transfer to MODA X 2 and transfer to high jeep MAX X 2 assist to pivot to the jeep, assist to help scoot up to the high seat. OT- Balance Assessment Sitting Balance and Reactions Static Sitting Balance Ability Fair Dynamic Sitting Balance Ability Poor Standing Balance and Reactions Static Standing Balance Ability Poor Dynamic Standing Balance Ability Poor M9 OT- IP Assessment and Plan Start: 07/16/22 10:49 Freq: Status: Discharge Protocol: Document 07/18/22 14:32 [facility] (Rec: 07/18/22 15:15 [facility] [id number]) OT Summary Assessment and Plan Potential Rehabilitation Potential Good Analytic Complexity at Evaluation High Summary OT Impairments Strength,Balance,Coordination, Functional Cognition, Functional Mobility,Self- Feeding,Grooming,Dressing, Toileting,Bathing,Toilet Transfers,Shower Transfers, Activity Tolerance Progress Towards Goals Progressing Toward Goals Assessment Summary Pt able to use his left hand to assist with dressing needs and able to bridge in the bed to assist.Pt able to transfer to [facility] with two person assist . Pt going to acute rehab. Goals Self-Feeding Goal Independent Grooming Goal Independent Dressing Goal Moderate Assistance Toileting Goal Standby Assistance Bathing Goal Moderate Assistance Toilet Transfer Goal Standby Assistance Shower Transfer Goal Contact Guard Assistance Days to Meet Goals 30 Frequency of Treatment Frequency Of Treatment Once a Day Discharge Recommendations OT Discharge Recommendations Acute Rehab Transportation Needs at Discharge Private Vehicle
== END 2022-07-18 14:50 | disposition short-term general hospital (02) | DRG 65 ==
LOC: ED 11:59 → AC 16:41
PROVIDERS: Admitting Provider Internal Medicine; Emergency Provider Emergency Medicine; PCP Family Medicine; Referring Provider Emergency Medicine; Visit Provider Internal Medicine
DX: I63.9 Cerebral infarction, unspecified (principal); I69.352 Hemiplegia and hemiparesis following cerebral infarction affecting left dominant side; R47.1 Dysarthria and anarthria; I10 Essential (primary) hypertension; E78.5 Hyperlipidemia, unspecified; G40.909 Epilepsy, unspecified, not intractable, without status epilepticus; R29.703 NIHSS score 3; F10.10 Alcohol abuse, uncomplicated; R29.713 NIHSS score 13; F17.210 Nicotine dependence, cigarettes, uncomplicated; Y90.0 Blood alcohol level of less than 20 mg/100 ml; Z20.822 Contact with and (suspected) exposure to COVID-19
CPT/HCPCS: 36415; 70450; 70496; 70498; 70551; 71045; 80048; 80053; 80061; 80175; 80305; 80320; 81001; 81003; 82550; 82553; 82962; 83036; 83735; 84146; 84443; 84484; 85025; 85610; 85730; 87635; 92507; 92522; 92526; 93005; 96374; 97116; 97162; 97167; 97530; 97535; 99285; C9803; J1650